=== PATIENT | male | born 1945 | race Caucasian/White ===

== ENCOUNTER 2017-04-19 23:14 | Emergency (ER) | payer BC, MEDICARE ==
[2017-04-19] MEDS ORDERED: predniSONE 10 MG Tab PO ONE (23:15)
[2017-04-19] MEDS ORDERED: Cephalexin 500 MG Cap PO ONE (23:15)
[2017-04-20 00:19] VITALS: BP 151/72
[2017-04-20] MEDS ORDERED: predniSONE 10 MG Tab ONE ×2 (01:37→01:57)
[2017-04-20] MEDS ORDERED: Cephalexin 500 MG Cap ONE (01:37)
--- NOTE | 2017-04-20 01:39 | EDM.PDOC ---
ED HPI GENERAL MEDICAL PROBLEM - General Chief Complaint: Bite:Animal, Insect Stated Complaint: WASP BITE SWELLING Time Seen by Provider: 04/20/17 00:15 Source of Information: Reports: Patient History Limitations: Reports: No Limitations - History of Present Illness INITIAL COMMENTS - FREE TEXT/NARRATIVE: Bit by wasp 6am, tonight increased swelling and redness to left hand. Mild previous reaction to wasp stings last week, No c/o breathing difficulty. Back Pain Score (Numeric/FACES): 5 - Related Data Allergies Allergy/AdvReac Type Severity Reaction Status Date / Time naproxen [From Naprosyn] Allergy Swelling Verified 04/20/17 00:14 Home Meds: Home Meds Aspirin [Aspirin EC] 325 mg PO DAILY 06/05/14 [History] Darbepoetin Chuy [Aranesp] 1 injection SUBCUT ASDIRECTED 06/05/14 [History] Hydrocodone/Acetaminophen [Hydrocodon-Acetaminophn 10-325] 1 tab PO Q4H [History] Metoprolol Succinate [Toprol Xl] 50 mg PO DAILY 06/05/14 [History] Omeprazole 20 mg PO BID 06/05/14 [History] rOPINIRole [Requip] 1 mg PO Q4H PRN 06/05/14 [History] Ascorbate Calcium [Vitamin C] 500 mg PO DAILY 06/15/14 [History] Multivitamins,Therapeutic [Thera] 1 each PO DAILY #30 tab 06/21/14 [Rx] Albuterol [Proventil HFA] 2 puff INH QID PRN 04/29/15 [History] Past Medical History HEENT History: Reports: None Cardiovascular History: Reports: Hypertension, [place] Musculoskeletal History: Reports: Back Pain, Chronic, Other (See Below) Other Musculoskeletal History: lumbar degenerative disc disease Neurological History: Reports: CVA, Other (See Below) Other Neuro History: restless legs Other Hematologic History: myelodysplastic syndrome - Infectious Disease History Other Infectious Disease History: pt cannot remember - Past Surgical History HEENT Surgical History: Reports: None Cardiovascular Surgical History: Reports: Carotid Endarterectomy GI Surgical History: Reports: Appendectomy Social & Family History - Tobacco Use Smoking Status *Q: Current Every Day Smoker Years of Tobacco use: 50 Packs/Tins Daily: 0.5 Used Tobacco, but Quit: No Second Hand Smoke Exposure: Yes - Caffeine Use Caffeine Use: Reports: Coffee, Soda - Alcohol Use Days Per Week of Alcohol Use: 0 - Recreational Drug Use Recreational Drug Use: No Drug Use in Last 12 Months: No - Living Situation & Occupation Living situation: Reports: ED ROS GENERAL - Review of Systems Review Of Systems: ROS reveals no pertinent complaints other than HPI. ED EXAM, ANIMAL BITE - Physical Exam Exam: See Below Exam Limited By: No Limitations General Appearance: Alert, No Apparent Distress Eye Exam: Bilateral Eye: EOMI Ears: Normal External Exam Nose: Normal Inspection Throat/Mouth: Normal Inspection Head: Atraumatic Neck: Normal Inspection. No: Lymphadenopathy (L), Lymphadenopathy (R) Respiratory/Chest: No Respiratory Distress, Lungs Clear Cardiovascular: Normal Peripheral Pulses, Regular Rate, Rhythm Extremities: Redness, Other (rid hand red swoolen,minimal swelling to fingers. good pulse ) Neurological: Alert, Oriented Skin Exam: Other (left hand red, moderate swelling to hand , mild swelling to fingers. good capillary refill) Course - Vital Signs Last Recorded V/S: Last Vital Signs Temp 98.1 F 04/20/17 00:14 Pulse 66 04/20/17 00:14 Resp 16 04/20/17 00:14 BP 151/72 H 04/20/17 00:14 Pulse Ox 97 04/20/17 00:14 - Orders/Labs/Meds Meds: Medications Discontinued Medications Generic Name Dose Route Start Last Admin Trade Name [place] PRN Reason Stop Dose Admin Cephalexin Confirm 04/20/17 01:37 Keflex Administered 04/20/17 01:38 Dose 2,500 mg .ROUTE .STK-MED ONE Prednisone Confirm 04/20/17 01:37 Prednisone Administered 04/20/17 01:38 Dose 30 mg .ROUTE .STK-MED ONE Prednisone Confirm 04/20/17 01:57 Prednisone Administered 04/20/17 01:58 Dose 10 mg .ROUTE .STK-MED ONE Departure - Departure Time of Disposition: 01:34 Disposition: Home, Self-Care 01 Condition: Good Clinical Impression: Sting, wasp Qualifiers: Encounter type: initial encounter Injury intent: accidental or unintentional Qualified Code(s): T63.461A - Toxic effect of venom of wasps, accidental ( unintentional), initial encounter Cellulitis Qualifiers: Site of cellulitis: extremity Site of cellulitis of extremity: upper extremity Laterality: left Qualified Code(s): L03.114 - Cellulitis of left upper limb - Discharge Information Instructions: Insect Bite, [id number] Forms: ED Department Discharge Additional Instructions: keflex 500mg one 4 times daily for one week prednisone 20mg x 2 days then 10mg daily for 5 days elevate extremity monitor redness, if increased warmth swelling and fever, follow up benadryl 25mg one every 6 hours as needed to decrease itching and swelling
== END 2017-04-20 02:02 | disposition home or self-care (01) ==
LOC: DL.ED 23:14
DX: T63.461A Toxic effect of venom of wasps, accidental (unintentional), initial encounter (principal); L03.113 Cellulitis of right upper limb; I10 Essential (primary) hypertension; I25.2 Old myocardial infarction; F17.210 Nicotine dependence, cigarettes, uncomplicated; Z79.82 Long term (current) use of aspirin; Z79.899 Other long term (current) drug therapy; Z88.8 Allergy status to other drugs, medicaments and biological substances; Z86.73 Personal history of transient ischemic attack (TIA), and cerebral infarction without residual deficits; Z90.49 Acquired absence of other specified parts of digestive tract; Z98.890 Other specified postprocedural states
CPT/HCPCS: 99281; A9270-GY

== ENCOUNTER 2017-07-02 17:08 | Inpatient (IN) | payer BC, MEDICARE ==
[2017-07-02] MEDS ORDERED: Acetaminophen 500 MG Tab PO ONE (17:23)
[2017-07-02] MEDS ORDERED: Albuterol/Ipratropium 3.0-0.5 MG/3 ML Neb Soln NEB ONE (17:23)
--- NOTE | 2017-07-02 17:26 | EDM.PDOC ---
ED HPI GENERAL MEDICAL PROBLEM - General Chief Complaint: Fever Stated Complaint: FEVER [id number] Time Seen by Provider: 07/02/17 17:21 Source of Information: Reports: Patient History Limitations: Reports: No Limitations - History of Present Illness INITIAL COMMENTS - FREE TEXT/NARRATIVE: 71 yo white male c/o fever and chills X 2 days. Smoke 1/2 ppd X 50 yrs. Pt. had epidural pain management injection on thursday Onset: Today Onset Date: 07/02/17 Onset Time: 11:00 Duration: Day(s): Location: Reports: Chest, Generalized Quality: Reports: Ache Severity: Moderate Improves with: Reports: None Worsens with: Reports: None Associated Symptoms: Reports: No Other Symptoms Lower Back Pain Score (Numeric/FACES): 5 - Related Data Allergies Allergy/AdvReac Type Severity Reaction Status Date / Time bee venom protein (honey bee) Allergy Swelling Verified 07/02/17 17:29 gabapentin Allergy Cannot Verified 07/02/17 17:29 Remember naproxen [From Naprosyn] Allergy Swelling Verified 07/02/17 17:29 pregabalin [From Lyrica] Allergy Excitabilit Verified 07/02/17 17:29 y Home Meds: Home Meds Aspirin [Aspirin EC] 325 mg PO DAILY 06/05/14 [History] Darbepoetin Chuy [Aranesp] 1 injection SUBCUT ASDIRECTED 06/05/14 [History] Hydrocodone/Acetaminophen [Hydrocodon-Acetaminophn 10-325] 1 tab PO Q4H [History] Metoprolol Succinate [Toprol Xl] 50 mg PO DAILY 06/05/14 [History] Omeprazole 20 mg PO BID 06/05/14 [History] rOPINIRole [Requip] 1 mg PO Q4H PRN 06/05/14 [History] Ascorbate Calcium [Vitamin C] 500 mg PO DAILY 06/15/14 [History] Multivitamins,Therapeutic [Thera] 1 each PO DAILY #30 tab 06/21/14 [Rx] Albuterol [Proventil HFA] 2 puff INH QID PRN 04/29/15 [History] Past Medical History HEENT History: Reports: None Cardiovascular History: Reports: Hypertension, [place] Musculoskeletal History: Reports: Back Pain, Chronic, Other (See Below) Other Musculoskeletal History: lumbar degenerative disc disease Neurological History: Reports: CVA, Other (See Below) Other Neuro History: restless legs Other Hematologic History: myelodysplastic syndrome - Infectious Disease History Other Infectious Disease History: pt cannot remember - Past Surgical History HEENT Surgical History: Reports: None Cardiovascular Surgical History: Reports: Carotid Endarterectomy GI Surgical History: Reports: Appendectomy Social & Family History - Tobacco Use Smoking Status *Q: Current Every Day Smoker Years of Tobacco use: 50 Packs/Tins Daily: 0.5 Used Tobacco, but Quit: No Second Hand Smoke Exposure: Yes - Caffeine Use Caffeine Use: Reports: Coffee, Soda - Alcohol Use Days Per Week of Alcohol Use: 0 - Recreational Drug Use Recreational Drug Use: No Drug Use in Last 12 Months: No - Living Situation & Occupation Living situation: Reports: ED ROS GENERAL - Review of Systems Review Of Systems: See Below Constitutional: Reports: Fever, Chills HEENT: Reports: No Symptoms Respiratory: Reports: Shortness of Breath, Cough, Sputum Cardiovascular: Reports: No Symptoms Endocrine: Reports: No Symptoms GI/Abdominal: Reports: No Symptoms : Reports: No Symptoms Musculoskeletal: Reports: No Symptoms Skin: Reports: No Symptoms Neurological: Reports: No Symptoms Psychiatric: Reports: No Symptoms Hematologic/Lymphatic: Reports: No Symptoms Immunologic: Reports: No Symptoms ED EXAM, GENERAL - Physical Exam Exam: See Below Exam Limited By: No Limitations General Appearance: Alert, WD/WN, No Apparent Distress Eye Exam: Bilateral Eye: EOMI, PERRL Ears: Normal External Exam Nose: Normal Inspection, Clear Rhinorrhea Throat/Mouth: Normal Inspection, Normal Lips Head: Atraumatic Neck: Normal Inspection Respiratory/Chest: No Respiratory Distress, Rhonchi Cardiovascular: Normal Peripheral Pulses, Regular Rate, Rhythm, No Edema GI/Abdominal: Normal Bowel Sounds, Soft Back Exam: Normal Inspection Extremities: Normal Inspection, Normal Range of Motion Neurological: Alert, Oriented, CN II-XII Intact Psychiatric: Normal Affect Skin Exam: Warm, Dry, Intact Lymphatic: No Adenopathy Course - Vital Signs Last Recorded V/S: Last Vital Signs Temp 38.4 C H 07/02/17 17:43 Pulse 83 07/02/17 17:17 Resp 16 07/02/17 17:17 BP 110/49 L 07/02/17 17:17 Pulse Ox 94 L 07/02/17 17:17 - Orders/Labs/Meds Orders: Active Orders 24 hr Category Date Time Status RT Aerosol Therapy [RC] ASDIRECTED Care 07/02/17 17:23 Active Chest 2V [CR] Urgent Exams 07/02/17 17:23 Taken CULTURE BLOOD [BC] Stat Lab 07/02/17 17:37 Received CULTURE BLOOD [BC] Stat Lab 07/02/17 17:53 Received CULTURE SPUTUM + SMEAR [RM] Stat Lab 07/02/17 18:24 Ordered Sodium Chloride 0.9% [Normal Saline] 1,000 ml Med 07/02/17 18:00 Active IV ASDIRECTED Medication Orders Sodium Chloride (Normal Saline) 1,000 mls @ 125 mls/hr IV ASDIRECTED JOE Last Admin: 07/02/17 18:30 Dose: 125 mls/hr Labs: Laboratory Tests 07/02/17 07/02/17 07/02/17 Range/Units 17:37 17:37 17:37 WBC 19.5 H (5.0-10.0) 10^3/uL RBC 2.87 L (4.6-6.2) 10^6/uL Hgb 8.8 L (14.0-18.0) g/dL Hct 28.1 L (40.0-54.0) % MCV 97.9 (80-100) fL MCH 30.7 (27.0-34.0) pg MCHC 31.3 L (33.0-35.0) g/dL Plt Count 333 D (150-450) 10^3/uL Lymph % (Auto) 7.7 L (20.5-50.1) % [place] % (Auto) 8.6 H (2-8) % Eos % (Auto) 0.1 L (1.0-3.0) % Add Manual Diff Yes Neutrophils % (Manual) 65 (42-75) % Band Neutrophils % 19 % Lymphocytes % (Manual) 9 L (20-50) % Monocytes % (Manual) 7 (2-8) % Sodium 139 (135-145) mmol/L Potassium 4.5 (3.6-5.0) mmol/L Chloride 101 (101-111) mmol/L Carbon Dioxide 27.0 (21.0-31.0) mmol/L Anion Gap 15.5 BUN 20 H (7-18) mg/dL Creatinine 0.8 (0.6-1.3) mg/dL Est Cr Clr Drug Dosing 75.32 mL/min Estimated GFR (MDRD) > 60 BUN/Creatinine Ratio 25.00 Glucose 92 (74-105) mg/dL Lactic Acid 1.3 (0.5-2.2) mmol/L Calcium 9.0 (8.4-10.2) mg/dl Total Bilirubin 1.0 (0.2-1.0) mg/dL AST 26 (10-42) IU/L ALT 19 (10-60) IU/L Alkaline Phosphatase 46 (42-121) IU/L Total Protein 7.1 (6.7-8.2) g/dl Albumin 4.5 (3.2-5.5) g/dl Globulin 2.6 Albumin/Globulin Ratio 1.73 Urine Color (YELLOW) Urine Appearance (CLEAR) Urine pH (5.0-9.0) Ur Specific [place] (1.005-1.030) Urine Protein (NEGATIVE) Urine Glucose (UA) (NEGATIVE) Urine Ketones (NEGATIVE) Urine Occult Blood (NEGATIVE) Urine Nitrite (NEGATIVE) Urine Bilirubin (NEGATIVE) Urine Urobilinogen (0.2-1.0) mg/dL Ur Leukocyte Esterase (NEGATIVE) Urine RBC /HPF Urine WBC (0-5/HPF) /HPF Ur Epithelial Cells /HPF Urine Bacteria (0-FEW/HPF) /HPF Urine Mucus /LPF 07/02/ Range/Units 18:00 WBC (5.0-10.0) 10^3/uL RBC (4.6-6.2) 10^6/uL Hgb (14.0-18.0) g/dL Hct (40.0-54.0) % MCV (80-100) fL MCH (27.0-34.0) pg MCHC (33.0-35.0) g/dL Plt Count (150-450) 10^3/uL Lymph % (Auto) (20.5-50.1) % [place] % (Auto) (2-8) % Eos % (Auto) (1.0-3.0) % Add Manual Diff Neutrophils % (Manual) (42-75) % Band Neutrophils % % Lymphocytes % (Manual) (20-50) % Monocytes % (Manual) (2-8) % Sodium (135-145) mmol/L Potassium (3.6-5.0) mmol/L Chloride (101-111) mmol/L Carbon Dioxide (21.0-31.0) mmol/L Anion Gap BUN (7-18) mg/dL Creatinine (0.6-1.3) mg/dL Est Cr Clr Drug Dosing mL/min Estimated GFR (MDRD) BUN/Creatinine Ratio Glucose (74-105) mg/dL Lactic Acid (0.5-2.2) mmol/L Calcium (8.4-10.2) mg/dl Total Bilirubin (0.2-1.0) mg/dL AST (10-42) IU/L ALT (10-60) IU/L Alkaline Phosphatase (42-121) IU/L Total Protein (6.7-8.2) g/dl Albumin (3.2-5.5) g/dl Globulin Albumin/Globulin Ratio Urine Color Yellow (YELLOW) Urine Appearance Clear (CLEAR) Urine pH 7.5 (5.0-9.0) Ur Specific [place] 1.020 (1.005-1.030) Urine Protein 30 H (NEGATIVE) Urine Glucose (UA) Negative (NEGATIVE) Urine Ketones Negative (NEGATIVE) Urine Occult Blood Negative (NEGATIVE) Urine Nitrite Negative (NEGATIVE) Urine Bilirubin Negative (NEGATIVE) Urine Urobilinogen 1.0 (0.2-1.0) mg/dL Ur Leukocyte Esterase Negative (NEGATIVE) Urine RBC 0-5 /HPF Urine WBC 0-5 (0-5/HPF) /HPF Ur Epithelial Cells Rare /HPF Urine Bacteria Rare (0-FEW/HPF) /HPF Urine Mucus Moderate H /LPF Meds: Medications Generic Name Dose Route Start Last Admin Trade Name Freq PRN Reason Stop Dose Admin Sodium Chloride 1,000 mls @ 125 mls/hr 07/02/17 18:00 07/02/17 18:30 Normal Saline IV 125 mls/hr ASDIRECTED JOE Administration Discontinued Medications Generic Name Dose Route Start Last Admin Trade Name Freq PRN Reason Stop Dose Admin Acetaminophen 500 mg 07/02/17 17:23 07/02/17 17:43 Tylenol Extra Strength PO 07/02/17 17:24 500 mg ONETIME ONE Administration Albuterol/Ipratropium 3 ml 07/02/17 17:23 07/02/17 17:41 Duoneb 3.0-0.5 Mg/3 Ml NEB 07/02/17 17:24 3 ml ONETIME ONE Administration Ceftriaxone Sodium 2 gm/ 100 mls @ 200 mls/hr 07/02/17 17:59 Sodium Chloride IV 07/02/17 18:28 ONETIME ONE Departure - Departure Time of Disposition: 18:34 Disposition: Admitted As Inpatient 65 Condition: Fair Clinical Impression: Pneumonia Pneumonia Qualifiers: Pneumonia type: due to unspecified organism Laterality: right Lung location: lower lobe of lung Qualified Code(s): J18.1 - Lobar pneumonia, unspecified organism - Discharge Information Referrals: PCP,None [Primary Care Provider] - Jesu Melton MD [Physician] - Forms: ED Department Discharge - My Orders Last 24 Hours: My Active Orders 07/02/17 17:23 RT Aerosol Therapy [RC] ASDIRECTED Chest 2V [CR] Urgent 07/02/17 17:37 CULTURE BLOOD [BC] Stat 07/02/17 17:53 CULTURE BLOOD [BC] Stat 07/02/17 18:00 Sodium Chloride 0.9% [Normal Saline] 1,000 ml IV ASDIRECTED 07/02/17 18:24 CULTURE SPUTUM + SMEAR [RM] Stat - Assessment/Plan Last 24 Hours: My Active Orders 07/02/17 17:23 RT Aerosol Therapy [RC] ASDIRECTED Chest 2V [CR] Urgent 07/02/17 17:37 CULTURE BLOOD [BC] Stat 07/02/17 17:53 CULTURE BLOOD [BC] Stat 07/02/17 18:00 Sodium Chloride 0.9% [Normal Saline] 1,000 ml IV ASDIRECTED 07/02/17 18:24 CULTURE SPUTUM + SMEAR [RM] Stat
[2017-07-02] MEDS ORDERED: cefTRIAXone 2 GM in Sodium Chloride 0.9% 100 ML IV ONE (17:59)
[2017-07-02 18:05] LABS: CHLORIDE,CL 101 mmol/L (101-111); SODIUM,NA 139 mmol/L (135-145)
[2017-07-02] MEDS: Sodium Chloride 0.9% 1,000 ML IV SCH (18:30)
[2017-07-02] MEDS ORDERED: Albuterol 6.7 GM Inhaler INH PRN (19:33)
[2017-07-02] MEDS ORDERED: Zolpidem 5 MG Tab PO PRN (19:41)
[2017-07-02] MEDS ORDERED: Sodium Chloride 0.9% 10 ML Syringe FLUSH PRN (19:41)
[2017-07-02] MEDS ORDERED: Acetaminophen 325 MG Tab PO PRN (19:41)
[2017-07-02] MEDS ORDERED: Albuterol/Ipratropium 3.0-0.5 MG/3 ML Neb Soln NEB PRN (19:41)
--- NOTE | 2017-07-02 19:51 | PCM.HP ---
H&P History of Present Illness - General Date of Service: 07/02/17 Admit Problem/Dx: Admission Diagnosis/Problem Admission Diagnosis/Problem Fever Source of Information: Patient History Limitations: Reports: No Limitations - History of Present Illness Initial Comments - Free Text/Narative: 71-year-old gentleman with a history of coronary artery disease, obstructive sleep apnea, hypertension, myelodysplastic syndrome with chronic anemia. The patient has a history of COPD. Continues to smoke. He has a chronic back pain. 2 days ago underwent lumbar spine steroid injection. Had a small mole removed from the back. The patient was noted to have fever on his recent regularly scheduled R Aranesp injection. He says he has always coughing but maybe has a little bit more cough now. No significant sputum associated with this. No headache nausea vomiting, no diarrhea, no confusion. No neck rigidity. Has chronic back pain which is not necessarily changed. The patient came into the emergency room. Lower Back Pain Score (Numeric/FACES): 5 - Related Data Allergies/Adverse Reactions: Allergies Allergy/AdvReac Type Severity Reaction Status Date / Time bee venom protein (honey bee) Allergy Swelling Verified 07/02/17 17:29 gabapentin Allergy Cannot Verified 07/02/17 17:29 Remember naproxen [From Naprosyn] Allergy Swelling Verified 07/02/17 17:29 pregabalin [From Lyrica] Allergy Excitabilit Verified 07/02/17 17:29 y Home Medications: Home Meds Aspirin [Aspirin EC] 325 mg PO DAILY 06/05/14 [History] Darbepoetin Chuy [Aranesp] 1 injection SUBCUT ASDIRECTED 06/05/14 [History] Hydrocodone/Acetaminophen [Hydrocodon-Acetaminophn 10-325] 1 tab PO Q4H [History] Metoprolol Succinate [Toprol Xl] 50 mg PO DAILY 06/05/14 [History] Omeprazole 20 mg PO BID 06/05/14 [History] rOPINIRole [Requip] 1 mg PO Q4H PRN 06/05/14 [History] Ascorbate Calcium [Vitamin C] 500 mg PO DAILY 06/15/14 [History] Multivitamins,Therapeutic [Thera] 1 each PO DAILY #30 tab 06/21/14 [Rx] Albuterol [Proventil HFA] 2 puff INH QID PRN 04/29/15 [History] Past Medical History HEENT History: Reports: None Cardiovascular History: Reports: Hypertension, [place] Respiratory History: Reports: COPD, SOB Gastrointestinal History: Reports: None Genitourinary History: Reports: None Musculoskeletal History: Reports: Back Pain, Chronic, Other (See Below) Other Musculoskeletal History: lumbar degenerative disc disease Neurological History: Reports: CVA, Other (See Below) Other Neuro History: restless legs Psychiatric History: Reports: None Endocrine/Metabolic History: Reports: None Hematologic History: Reports: Anemia Other Hematologic History: myelodysplastic syndrome Immunologic History: Reports: None Oncologic (Cancer) History: Reports: Other (See Below) Other Oncologic History: skin Dermatologic History: Reports: Other (See Below) Other Dermatologic History: skin cancer to back - Infectious Disease History Other Infectious Disease History: pt cannot remember - Past Surgical History HEENT Surgical History: Reports: None Cardiovascular Surgical History: Reports: Carotid Endarterectomy GI Surgical History: Reports: Appendectomy Social & Family History - Tobacco Use Smoking Status *Q: Current Every Day Smoker Years of Tobacco use: 50 Packs/Tins Daily: 0.5 Used Tobacco, but Quit: No Second Hand Smoke Exposure: Yes - Caffeine Use Caffeine Use: Reports: Coffee, Soda - Alcohol Use Days Per Week of Alcohol Use: 0 - Recreational Drug Use Recreational Drug Use: No Drug Use in Last 12 Months: No - Living Situation & Occupation Living situation: Reports: H&P Review of Systems - Review of Systems: Review Of Systems: See Below General: Reports: Fever. Denies: Chills, Weakness HEENT: Denies: Headaches, Sore Throat Pulmonary: Reports: Shortness of Breath (Chronic). Denies: Wheezing Cardiovascular: Reports: Edema (Chronic). Denies: Chest Pain Gastrointestinal: Denies: Abdominal Pain Genitourinary: Denies: Dysuria Musculoskeletal: Denies: Neck Pain Psychiatric: Denies: Confusion Exam - Exam Exam: See Below - Vital Signs Vital Signs: Last Vital Signs Temp 38.4 C H 07/02/17 17:43 Pulse 83 07/02/17 17:17 Resp 16 07/02/17 17:17 BP 110/49 L 07/02/17 17:17 Pulse Ox 94 L 07/02/17 17:17 Weight: 64.41 kg - Exam General: Alert Neck: Supple Lungs: Decreased Breath Sounds, Rhonchi (Scattered bilateral). No: Wheezing Cardiovascular: Regular Rate, Regular Rhythm GI/Abdominal Exam: Normal Bowel Sounds, Soft, Non-Tender Extremities: Pedal Edema Skin: Warm, Wound (Small wound at the site of the skin biopsy on the back) Neurological: Cranial Nerves Intact Neuro Extensive - Mental Status: Alert, Oriented x3, Normal Mood/Affect - Patient Data Result Diagrams: 07/02/17 17:37 07/02/17 17:37 Imaging Impressions Last 24 hrs: Chest x-ray per my reading shows questionable right hilar or infrahilar infiltrate *Q Meaningful Use (ADM) - VTE *Q VTE Criteria *Q: - Stroke *Q Stroke Criteria *Q: - AMI *Q AMI Criteria *Q: - Problem List (1) Anemia SNOMED Code(s): 982639640 ICD Code: D64.9 - ANEMIA, UNSPECIFIED Status: Acute Current Visit: No (2) Myelodysplastic syndrome SNOMED Code(s): 825464674 ICD Code: D46.9 - MYELODYSPLASTIC SYNDROME, UNSPECIFIED Status: Acute Current Visit: No Problem List Initiated/Reviewed/Updated: Yes Orders Last 24hrs: Active Orders 24 hr Category Date Time Status Patient Status [ADT] Routine ADT 07/02/17 19:41 Ordered Antiembolic Devices [RC] PER UNIT ROUTINE Care 07/02/17 19:43 Ordered Oxygen Therapy [RC] PRN Care 07/02/17 19:41 Ordered Peripheral IV Care [RC] . DIRECTED Care 07/02/17 19:43 Ordered RT Aerosol Therapy [RC] ASDIRECTED Care 07/02/17 19:39 Ordered RT Aerosol Therapy [RC] ASDIRECTED Care 07/02/17 19:41 Ordered Up With Assistance [RC] ASDIRECTED Care 07/02/17 19:41 Ordered VTE/DVT Education [RC] PER UNIT ROUTINE Care 07/02/17 19:41 Ordered Vital Signs [RC] Q4H Care 07/02/17 19:41 Ordered Regular Diet [DIET] Diet 07/02/17 Breakfast Ordered CULTURE URINE [RM] Routine Lab 07/02/17 19:00 Uncollected UA W/MICROSCOPIC [URIN] Routine Lab 07/02/17 19:00 Uncollected Acetaminophen [Tylenol] Med 07/02/17 19:41 Ordered 650 mg PO Q4H PRN Acetaminophen/HYDROcodone [[place] 325-10 MG] Med 07/02/17 19:45 Ordered 1 tab PO Q4H Albuterol/Ipratropium [DuoNeb 3.0-0.5 MG/3 ML] Med 07/02/17 19:41 Ordered 3 ml NEB Q4HRRT PRN Ascorbate Calcium [Vitamin C] Med 07/03/17 09:00 Ordered 500 mg PO DAILY Aspirin [Aspirin EC] Med 07/03/17 09:00 Ordered 325 mg PO DAILY Azithromycin [Zithromax] 500 mg Med 07/02/17 20:00 Active Sodium Chloride 0.9% [Normal Saline] 250 ml IV Q24H Budesonide [Pulmicort] Med 07/03/17 07:00 Ordered 0.5 mg NEB BIDRT Heparin Sodium Med 07/02/17 22:00 Ordered 5,000 units SUBCUT Q8HR Metoprolol Succinate [Toprol Xl] Med 07/03/17 09:00 Ordered 50 mg PO DAILY Multivitamins,Therapeutic [Thera] Med 07/03/17 09:00 Ordered 1 each PO DAILY Omeprazole Med 07/02/17 21:00 Ordered 20 mg PO BID Sodium Chloride 0.9% [Saline Flush] Med 07/02/17 19:41 Ordered 10 ml FLUSH ASDIRECTED PRN Zolpidem [Ambien] Med 07/02/17 19:41 Ordered 5 mg PO BEDTIME PRN atorvaSTATin [Lipitor] Med 07/02/17 21:00 Ordered 10 mg PO BEDTIME cefTRIAXone [Rocephin] 1 gm Med 07/03/17 18:00 Active Sodium Chloride 0.9% [Normal Saline] 50 ml IV Q24H rOPINIRole [Requip] Med 07/02/17 19:33 Ordered 1 mg PO Q4H PRN Antiembolic Hose [OM.PC] Per Unit Routine Oth 07/02/17 19:43 Ordered Peripheral IV Insertion Adult [OM.PC] Routine Oth 07/02/17 19:41 Ordered Saline Lock Insert [OM.PC] Routine Oth 07/02/17 19:41 Ordered Resuscitation Status Routine Resus Stat 07/02/17 19:41 Ordered Medication Orders Acetaminophen (Tylenol) 650 mg PO Q4H PRN PRN Reason: Pain (Mild 1-3)/fever Hydrocodone Bitart/Acetaminophen ([place] 325-10 Mg) 1 tab PO Q4H JOE Albuterol/Ipratropium (Duoneb 3.0-0.5 Mg/3 Ml) 3 ml NEB Q4HRRT PRN PRN Reason: sob Atorvastatin Calcium (Lipitor) 10 mg PO BEDTIME JOE Budesonide (Pulmicort) 0.5 mg NEB BIDRT JOE Heparin Sodium (Porcine) (Heparin Sodium) 5,000 units SUBCUT Q8HR JOE Sodium Chloride (Normal Saline) 1,000 mls @ 125 mls/hr IV ASDIRECTED [facility] Last Admin: 07/02/17 18:30 Dose: 125 mls/hr Azithromycin 500 mg/ Sodium (Chloride) 250 mls @ 250 mls/hr IV Q24H JOE Ceftriaxone Sodium 1 gm/ (Sodium Chloride) 50 mls @ 100 mls/hr IV Q24H [facility] Multivitamins (Thera) 1 each PO DAILY [facility] Non-Formulary Medication (Ascorbate Calcium [Vitamin C]) 500 mg PO DAILY [facility] Non-Formulary Medication (Aspirin [Aspirin Ec]) 325 mg PO DAILY [facility] Non-Formulary Medication (Metoprolol Succinate [Toprol Xl]) 50 mg PO DAILY [facility] Non-Formulary Medication (Ropinirole [Requip]) 1 mg PO Q4H PRN PRN Reason: Pain in leg, back Omeprazole (Omeprazole) 20 mg PO BID [facility] Sodium Chloride (Saline Flush) 10 ml FLUSH ASDIRECTED PRN PRN Reason: Keep Vein Open Zolpidem Tartrate (Ambien) 5 mg PO BEDTIME PRN PRN Reason: Sleep Assessment/Plan Comment:: #1 fever This is likely acute bronchitis, possible right-sided pneumonia The patient recently had skin biopsy but there is no significant cellulitis in the area The patient recently had lumbar spinal injection but he does not have signs or symptoms of meningitis or encephalitis We will obtain blood culture, sputum culture, urine analysis and culture Empirically treat with Rocephin and azithromycin 2. COPD We will add Pulmicort, continue DuoNeb Smoking cessation was discussed 3. Coronary artery disease Continue metoprolol and Lipitor and aspirin 4. Chronic pain Will treat with requip, hydrocodone 5. DVT prophylaxis will be subcutaneous heparin
[2017-07-02] MEDS ORDERED: rOPINIRole 2 MG Tab PO PRN (20:00)
[2017-07-02] MEDS: Azithromycin 500 MG in Sodium Chloride 0.9% 250 ML IV SCH (20:35)
[2017-07-02] MEDS: Heparin Sodium 5,000 Units/ML Vial SUBCUT SCH (21:30)
[2017-07-02] MEDS: Omeprazole 20 MG Cap.CR PO SCH (21:30)
[2017-07-02] MEDS: rOPINIRole 2 MG Tab PO SCH (21:30)
[2017-07-02] MEDS: atorvaSTATin 10 MG Tab PO SCH (21:31)
[2017-07-02] MEDS: Loratadine 10 MG Tab PO SCH ×2 (21:31→21:53)
[2017-07-02] MEDS: Acetaminophen/HYDROcodone 325-10 MG Tab PO SCH (21:31)
[2017-07-03] MEDS: Acetaminophen/HYDROcodone 325-10 MG Tab PO SCH ×6 (02:05→22:07)
[2017-07-03] MEDS: rOPINIRole 2 MG Tab PO SCH ×6 (02:05→22:07)
[2017-07-03] MEDS: Sodium Chloride 0.9% 1,000 ML IV SCH (02:09)
[2017-07-03] MEDS: Heparin Sodium 5,000 Units/ML Vial SUBCUT SCH ×3 (06:11→22:11)
[2017-07-03] MEDS: Budesonide 0.5 MG/2 ML Neb Susp NEB SCH ×2 (07:28→18:01)
[2017-07-03] MEDS: Loratadine 10 MG Tab PO SCH (09:33)
[2017-07-03] MEDS: Aspirin 325 MG Tab.EC PO SCH (09:34)
[2017-07-03] MEDS: Ascorbic Acid 500 MG Tab PO SCH (09:35)
[2017-07-03] MEDS: Multivitamins,Therapeutic Tab PO SCH (09:35)
[2017-07-03] MEDS: Metoprolol Succinate 50 MG Tab.ER PO SCH (09:35)
[2017-07-03] MEDS: Omeprazole 20 MG Cap.CR PO SCH ×2 (09:36→20:34)
--- NOTE | 2017-07-03 10:14 | PCM.PN ---
- General Info Date of Service: 07/03/17 Subjective Update: had low grade temp overnight no associated chills no cp, has cough, no sob no abd pain, no urinary burning no H/a, confusion - Review of Systems General: Reports: Fever Pulmonary: Denies: Shortness of Breath Cardiovascular: Denies: Chest Pain Genitourinary: Denies: Dysuria Neurological: Denies: Confusion - Patient Data Vitals - Most Recent: Last Vital Signs Temp 37.2 C 07/03/17 06:58 Pulse 65 07/03/17 09:35 Resp 20 07/03/17 06:58 BP 114/50 L 07/03/17 09:35 Pulse Ox 92 L 07/03/17 06:58 Weight - Most Recent: 64.41 kg I&O - Last 24 Hours: Intake & Output 07/02/17 07/03/17 07/03/17 22:59 06:59 14:59 Intake Total 1528 Balance 1528 Med Orders - Current: Current Medications Acetaminophen (Tylenol) 650 mg PO Q4H PRN PRN Reason: Pain (Mild 1-3)/fever Hydrocodone Bitart/Acetaminophen ([place] 325-10 Mg) 1 tab PO Q4H [facility] Last Admin: 07/03/17 09:33 Dose: 1 tab Albuterol/Ipratropium (Duoneb 3.0-0.5 Mg/3 Ml) 3 ml NEB Q4HRRT PRN PRN Reason: sob Last Admin: 07/03/17 07:27 Dose: 3 ml Ascorbic Acid (Vitamin C) 500 mg PO DAILY [facility] Last Admin: 07/03/17 09:35 Dose: 500 mg Aspirin (Ecotrin) 325 mg PO DAILY [facility] Last Admin: 07/03/17 09:34 Dose: 325 mg Atorvastatin Calcium (Lipitor) 10 mg PO BEDTIME [facility] Last Admin: 07/02/17 21:31 Dose: 10 mg Budesonide (Pulmicort) 0.5 mg NEB BIDRT [facility] Last Admin: 07/03/17 07:28 Dose: 0.5 mg Heparin Sodium (Porcine) (Heparin Sodium) 5,000 units SUBCUT Q8HR [facility] Last Admin: 07/03/17 06:11 Dose: 5,000 units Sodium Chloride (Normal Saline) 1,000 mls @ 125 mls/hr IV ASDIRECTED [facility] Last Admin: 07/03/17 02:09 Dose: 125 mls/hr Azithromycin 500 mg/ Sodium (Chloride) 250 mls @ 250 mls/hr IV Q24H [facility] Last Admin: 07/02/17 20:35 Dose: 250 mls/hr Ceftriaxone Sodium 1 gm/ (Sodium Chloride) 50 mls @ 100 mls/hr IV Q24H [facility] Loratadine (Claritin) 10 mg PO DAILY [facility] Last Admin: 07/03/17 09:33 Dose: 10 mg Metoprolol Succinate (Toprol Xl) 50 mg PO DAILY [facility] Last Admin: 07/03/17 09:35 Dose: 50 mg Multivitamins (Thera) 1 each PO DAILY [facility] Last Admin: 07/03/17 09:35 Dose: 1 each Omeprazole (Omeprazole) 20 mg PO BID [facility] Last Admin: 07/03/17 09:36 Dose: 20 mg Ropinirole HCl (Requip) 1 mg PO Q4H [facility] Last Admin: 07/03/17 09:36 Dose: 1 mg Sodium Chloride (Saline Flush) 10 ml FLUSH ASDIRECTED PRN PRN Reason: Keep Vein Open Zolpidem Tartrate (Ambien) 5 mg PO BEDTIME PRN PRN Reason: Sleep Discontinued Medications Acetaminophen (Tylenol Extra Strength) 500 mg PO ONETIME ONE Stop: 07/02/17 17:24 Last Admin: 07/02/17 17:43 Dose: 500 mg Hydrocodone Bitart/Acetaminophen ([place] 325-10 Mg) 1 tab PO Q4H [facility] Last Admin: 07/03/17 02:05 Dose: 1 tab Albuterol (Proventil Hfa) gm INH QID PRN PRN Reason: Shortness of Breath Albuterol/Ipratropium (Duoneb 3.0-0.5 Mg/3 Ml) 3 ml NEB ONETIME ONE Stop: 07/02/17 17:24 Last Admin: 07/02/17 17:41 Dose: 3 ml Ceftriaxone Sodium 2 gm/ (Sodium Chloride) 100 mls @ 200 mls/hr IV ONETIME ONE Stop: 07/02/17 18:28 Last Admin: 07/02/17 18:33 Dose: 200 mls/hr Loratadine (Claritin) 10 mg PO BEDTIME [facility] Last Admin: 07/02/17 21:53 Dose: Not Given Ropinirole HCl (Requip) 1 mg PO Q4H PRN PRN Reason: PAIN IN LEG AND BACK - Exam General: Alert, Oriented Neck: Supple Lungs: Decreased Breath Sounds. No: Wheezing Cardiovascular: Regular Rate, Regular Rhythm GI/Abdominal Exam: Normal Bowel Sounds, Soft, Non-Tender Extremities: No Pedal Edema Skin: Warm, Dry Neurological: No New Focal Deficit Psy/Mental Status: Alert, Normal Affect, Normal Mood - Problem List & Annotations (1) Anemia SNOMED Code(s): 494183258 Code(s): D64.9 - ANEMIA, UNSPECIFIED Status: Acute Current Visit: No (2) Myelodysplastic syndrome SNOMED Code(s): 934277771 Code(s): D46.9 - MYELODYSPLASTIC SYNDROME, UNSPECIFIED Status: Acute Current Visit: No (3) Acute bronchitis SNOMED Code(s): 27130063 Code(s): J20.9 - ACUTE BRONCHITIS, UNSPECIFIED Status: Acute Current Visit: Yes - Problem List Review Problem List Initiated/Reviewed/Updated: Yes - My Orders Last 24 Hours: My Active Orders 07/02/17 22:00 rOPINIRole [Requip] 1 mg PO Q4H 07/03/17 06:00 Acetaminophen/HYDROcodone [[place] 325-10 MG] 1 tab PO Q4H 07/03/17 09:00 Loratadine [Claritin] 10 mg PO DAILY 07/04/17 05:15 BASIC METABOLIC PANEL,BMP [CHEM] AM CBC WITH AUTO DIFF [HEME] AM - Plan Plan:: #1 fever This is likely due to acute bronchitis, possible right-sided pneumonia The patient recently had skin biopsy but there is no significant cellulitis in the area The patient recently had lumbar spinal injection but he does not have signs or symptoms of meningitis or encephalitis blood culture: neg for now sputum culture: pending urine analysis: neg nitr., leuk Empirically treat with Rocephin and azithromycin 2. COPD cont Pulmicort, continue DuoNeb Smoking cessation was discussed 3. Coronary artery disease Continue metoprolol and Lipitor and aspirin 4. Chronic pain Will treat with requip, hydrocodone 5. DVT prophylaxis will be subcutaneous heparin
[2017-07-03] MEDS ORDERED: cefTRIAXone 1 GM in Sodium Chloride 0.9% 50 ML IV SCH (18:00)
[2017-07-03] MEDS: Azithromycin 500 MG in Sodium Chloride 0.9% 250 ML IV SCH (20:33)
[2017-07-03] MEDS: atorvaSTATin 10 MG Tab PO SCH (20:33)
[2017-07-04] MEDS: Acetaminophen/HYDROcodone 325-10 MG Tab PO SCH ×3 (02:31→10:06)
[2017-07-04] MEDS: rOPINIRole 2 MG Tab PO SCH ×3 (02:32→10:06)
[2017-07-04] MEDS: Heparin Sodium 5,000 Units/ML Vial SUBCUT SCH (06:31)
[2017-07-04] MEDS: Budesonide 0.5 MG/2 ML Neb Susp NEB SCH (06:47)
[2017-07-04 06:48] LABS: CHLORIDE,CL 107 mmol/L (101-111); SODIUM,NA 140 mmol/L (135-145)
[2017-07-04] MEDS: Loratadine 10 MG Tab PO SCH (08:07)
[2017-07-04] MEDS: Metoprolol Succinate 50 MG Tab.ER PO SCH (08:07)
[2017-07-04] MEDS: Omeprazole 20 MG Cap.CR PO SCH (08:07)
[2017-07-04] MEDS: Aspirin 325 MG Tab.EC PO SCH (08:07)
[2017-07-04] MEDS: Multivitamins,Therapeutic Tab PO SCH (08:07)
[2017-07-04] MEDS: Ascorbic Acid 500 MG Tab PO SCH (08:08)
--- NOTE | 2017-07-04 10:01 | PCM.DCSUM1 ---
Discharge Summary - Hospital Course Free Text/Narrative:: #1 fever This is likely due to acute bronchitis, possible right-sided pneumonia The patient recently had skin biopsy but there is no significant cellulitis in the area The patient recently had lumbar spinal injection but he does not have signs or symptoms of meningitis or encephalitis blood culture: neg for now sputum culture: pending urine analysis: neg nitr., leuk Empirically treated with Rocephin and azithromycin will finish tx. with levofloxacin 2. COPD continue Nebs Smoking cessation was discussed 3. Coronary artery disease Continue metoprolol and Lipitor and aspirin 4. Chronic pain Will treat with requip, hydrocodone 5. Edema will give a few days of diuretics follow up in the clinic - Discharge Data Discharge Date: 07/04/17 Discharge Disposition: Home, Self-Care 01 Condition: Good - Discharge Diagnosis/Problem(s) (1) Anemia SNOMED Code(s): 529455963 ICD Code: D64.9 - ANEMIA, UNSPECIFIED Status: Acute Current Visit: No (2) Myelodysplastic syndrome SNOMED Code(s): 657126670 ICD Code: D46.9 - MYELODYSPLASTIC SYNDROME, UNSPECIFIED Status: Acute Current Visit: No (3) Acute bronchitis SNOMED Code(s): 34697725 ICD Code: J20.9 - ACUTE BRONCHITIS, UNSPECIFIED Status: Acute Current Visit: Yes - Patient Instructions Diet: Heart Healthy Diet Activity: As Tolerated - Discharge Plan Prescriptions/Med Rec: Furosemide [Lasix] 20 mg PO DAILY #3 tablet Levofloxacin 500 mg PO DAILY #7 tablet Home Medications: Home Meds Aspirin [Aspirin EC] 325 mg PO DAILY 06/05/14 [History] Darbepoetin Chuy [Aranesp] 1 injection SUBCUT ASDIRECTED 06/05/14 [History] Hydrocodone/Acetaminophen [Hydrocodon-Acetaminophn 10-325] 1 tab PO Q4H [History] Metoprolol Succinate [Toprol Xl] 50 mg PO DAILY 06/05/14 [History] Omeprazole 20 mg PO BID 06/05/14 [History] rOPINIRole [Requip] 1 mg PO Q4H PRN 06/05/14 [History] Ascorbate Calcium [Vitamin C] 500 mg PO DAILY 06/15/14 [History] Multivitamins,Therapeutic [Thera] 1 each PO DAILY #30 tab 06/21/14 [Rx] Albuterol [Proventil HFA] 2 puff INH QID PRN 04/29/15 [History] Furosemide [Lasix] 20 mg PO DAILY #3 tablet 07/04/17 [Rx] Levofloxacin 500 mg PO DAILY #7 tablet 07/04/17 [Rx] Patient Handouts: Acute Bronchitis, [id number] Referrals: PCP,None [Primary Care Provider] - (dr. Smyth in 2-3 days) - Discharge Summary/Plan Comment DC Time >30 min.: No - Patient Data Vitals - Most Recent: Last Vital Signs Temp 36.8 C 07/04/17 07:00 Pulse 68 07/04/17 08:07 Resp 20 07/04/17 07:00 BP 135/53 L 07/04/17 08:07 Pulse Ox 94 L 07/04/17 07:00 Weight - Most Recent: 64.41 kg I&O - Last 24 hours: Intake & Output 07/03/17 07/04/17 07/04/17 22:59 06:59 14:59 Intake Total 900 Balance 900 Lab Results - Last 24 hrs: Laboratory Results - last 24 hr 07/04/17 07/04/17 Range/Units 05:50 05:50 WBC 7.8 (5.0-10.0) 10^3/uL RBC 2.70 L (4.6-6.2) 10^6/uL Hgb 8.3 L (14.0-18.0) g/dL Hct 27.1 L (40.0-54.0) % MCV 100.4 H (80-100) fL MCH 30.7 (27.0-34.0) pg MCHC 30.6 L (33.0-35.0) g/dL Plt Count 273 (150-450) 10^3/uL Lymph % (Auto) 27.4 (20.5-50.1) % [place] % (Auto) 14.1 H (2-8) % Eos % (Auto) 1.3 (1.0-3.0) % Add Manual Diff Yes Neutrophils % (Manual) 57 (42-75) % Band Neutrophils % 5 % Lymphocytes % (Manual) 23 (20-50) % Monocytes % (Manual) 11 H (2-8) % Eosinophils % (Manual) 1 (1-3) % Basophils % (Manual) 1 Myelocytes % 2 Nucleated RBCs 1 /100WBC Atypical Lymphocytes Few Platelet Estimate Adequate Giant Platelets Few Macrocytosis 1+ slight Target Cells 2+ moderate Stomatocytes 2+ moderate Elliptocytes 1+ slight Sodium 140 (135-145) mmol/L Potassium 4.5 (3.6-5.0) mmol/L Chloride 107 (101-111) mmol/L Carbon Dioxide 27.0 (21.0-31.0) mmol/L Anion Gap 10.5 BUN 15 (7-18) mg/dL Creatinine 0.9 (0.6-1.3) mg/dL Est Cr Clr Drug Dosing 66.95 mL/min Estimated GFR (MDRD) > 60 Glucose 91 (74-105) mg/dL Calcium 7.9 L (8.4-10.2) mg/dl Med Orders - Current: Current Medications Acetaminophen (Tylenol) 650 mg PO Q4H PRN PRN Reason: Pain (Mild 1-3)/fever Hydrocodone Bitart/Acetaminophen ([place] 325-10 Mg) 1 tab PO Q4H [facility] Last Admin: 07/04/17 06:32 Dose: 1 tab Albuterol/Ipratropium (Duoneb 3.0-0.5 Mg/3 Ml) 3 ml NEB Q4HRRT PRN PRN Reason: sob Last Admin: 07/03/17 07:27 Dose: 3 ml Ascorbic Acid (Vitamin C) 500 mg PO DAILY [facility] Last Admin: 07/04/17 08:08 Dose: 500 mg Aspirin (Ecotrin) 325 mg PO DAILY [facility] Last Admin: 07/04/17 08:07 Dose: 325 mg Atorvastatin Calcium (Lipitor) 10 mg PO BEDTIME [facility] Last Admin: 07/03/17 20:33 Dose: 10 mg Budesonide (Pulmicort) 0.5 mg NEB BIDRT [facility] Last Admin: 07/04/17 06:47 Dose: 0.5 mg Heparin Sodium (Porcine) (Heparin Sodium) 5,000 units SUBCUT Q8HR [facility] Last Admin: 07/04/17 06:31 Dose: 5,000 units Azithromycin 500 mg/ Sodium (Chloride) 250 mls @ 250 mls/hr IV Q24H [facility] Last Admin: 07/03/17 20:33 Dose: 250 mls/hr Ceftriaxone Sodium 1 gm/ (Sodium Chloride) 50 mls @ 100 mls/hr IV Q24H [facility] Last Admin: 07/03/17 18:02 Dose: 100 mls/hr Loratadine (Claritin) 10 mg PO DAILY [facility] Last Admin: 07/04/17 08:07 Dose: 10 mg Metoprolol Succinate (Toprol Xl) 50 mg PO DAILY [facility] Last Admin: 07/04/17 08:07 Dose: 50 mg Multivitamins (Thera) 1 each PO DAILY [facility] Last Admin: 07/04/17 08:07 Dose: 1 each Omeprazole (Omeprazole) 20 mg PO BID [facility] Last Admin: 07/04/17 08:07 Dose: 20 mg Ropinirole HCl (Requip) 1 mg PO Q4H [facility] Last Admin: 07/04/17 06:31 Dose: 1 mg Sodium Chloride (Saline Flush) 10 ml FLUSH ASDIRECTED PRN PRN Reason: Keep Vein Open Last Admin: 07/03/17 18:01 Dose: 10 ml Zolpidem Tartrate (Ambien) 5 mg PO BEDTIME PRN PRN Reason: Sleep Discontinued Medications Acetaminophen (Tylenol Extra Strength) 500 mg PO ONETIME ONE Stop: 07/02/17 17:24 Last Admin: 07/02/17 17:43 Dose: 500 mg Hydrocodone Bitart/Acetaminophen ([place] 325-10 Mg) 1 tab PO Q4H [facility] Last Admin: 07/03/17 02:05 Dose: 1 tab Albuterol (Proventil Hfa) gm INH QID PRN PRN Reason: Shortness of Breath Albuterol/Ipratropium (Duoneb 3.0-0.5 Mg/3 Ml) 3 ml NEB ONETIME ONE Stop: 07/02/17 17:24 Last Admin: 07/02/17 17:41 Dose: 3 ml Ceftriaxone Sodium 2 gm/ (Sodium Chloride) 100 mls @ 200 mls/hr IV ONETIME ONE Stop: 07/02/17 18:28 Last Admin: 07/02/17 18:33 Dose: 200 mls/hr Sodium Chloride (Normal Saline) 1,000 mls @ 125 mls/hr IV ASDIRECTED [facility] Last Infusion: 07/03/17 10:19 Dose: Infused Loratadine (Claritin) 10 mg PO BEDTIME [facility] Last Admin: 07/02/17 21:53 Dose: Not Given Ropinirole HCl (Requip) 1 mg PO Q4H PRN PRN Reason: PAIN IN LEG AND BACK *Q Meaningful Use (DIS) - VTE *Q VTE Criteria *Q: - Stroke *Q Stroke Criteria *Q: - AMI *Q AMI Criteria *Q:
[2017-07-04 10:19] VITALS: BP 113/85
== END 2017-07-04 10:40 | disposition home or self-care (01) | DRG 144 ==
LOC: DL.ED 17:08 → UNDOADMIN 18:51 → DL.MS 18:51
PROVIDERS: ADMIT Internal Medicine; ATTEND Internal Medicine
DX: J20.9 Acute bronchitis, unspecified (principal); J18.9 Pneumonia, unspecified organism; I25.2 Old myocardial infarction; I10 Essential (primary) hypertension; G89.29 Other chronic pain; M54.9 Dorsalgia, unspecified; Z86.73 Personal history of transient ischemic attack (TIA), and cerebral infarction without residual deficits; D46.9 Myelodysplastic syndrome, unspecified; G25.81 Restless legs syndrome; F17.210 Nicotine dependence, cigarettes, uncomplicated; Z88.8 Allergy status to other drugs, medicaments and biological substances; Z91.030 Bee allergy status; Z79.82 Long term (current) use of aspirin; Z79.899 Other long term (current) drug therapy; D64.9 Anemia, unspecified; J44.9 Chronic obstructive pulmonary disease, unspecified; I25.10 Atherosclerotic heart disease of native coronary artery without angina pectoris; R60.9 Edema, unspecified
CPT/HCPCS: 36415; 71020; 80048; 80053; 81001; 83605; 85025; 87040; 87070; 87086; 87186; 87205; 94640; 94667; 96374; 99285; A9270-GY; J0456; J0696; J1644; J7030; J7050

== ENCOUNTER 2019-04-16 12:09 | Emergency (ER) | payer MEDICARE, BC ==
[2019-04-16 12:18] VITALS: BP 139/58
[2019-04-16] MEDS ORDERED: predniSONE 20 MG Tab PO ONE (12:32)
--- NOTE | 2019-04-16 12:43 | EDM.PDOC ---
Scribed by Helga Nolan 04/16/19 1241 for Godfrey Goff MD ED HPI GENERAL MEDICAL PROBLEM - General Chief Complaint: Allergic Reaction Stated Complaint: ALLERGIC TO BEE STINGS AND JUST GOT STUNG PER LEONOR Time Seen by Provider: 04/16/19 12:14 Source of Information: Reports: Patient, RN, RN Notes Reviewed History Limitations: Reports: No Limitations - History of Present Illness INITIAL COMMENTS - FREE TEXT/NARRATIVE: Patient presents to ER with complaint that he was stung by a wasp or hornet on the lower abdominal wall about 1/2 hour ago, did not take any Benadryl. He admits to 5/10 chronic back pain. In the past he had a reaction and was recommended that he carry an epi pin, but is not carrying or has one. Pt denies cough, wheezing, swelling of the face, lips, tongue, or throat. Denies any difficulty breathing. Onset: Today Duration: Constant Location: Reports: Generalized Quality: Reports: Ache Severity: Moderate Improves with: Reports: None Worsens with: Reports: None Associated Symptoms: Reports: No Other Symptoms Back Pain Score (Numeric/FACES): 5 - Related Data Allergies Allergy/AdvReac Type Severity Reaction Status Date / Time bee venom protein (honey bee) Allergy Swelling Verified 04/16/19 12:19 gabapentin Allergy Cannot Verified 04/16/19 12:19 Remember naproxen [From Naprosyn] Allergy Swelling Verified 04/16/19 12:19 pregabalin [From Lyrica] Allergy Excitabilit Verified 04/16/19 12:19 y Home Meds: Home Meds Darbepoetin Chuy [Aranesp] 1 injection SUBCUT ASDIRECTED 06/05/14 [History] Hydrocodone/Acetaminophen [Hydrocodon-Acetaminophn 10-325] 1 tab PO Q4H PRN [History] Metoprolol Succinate [Toprol Xl] 50 mg PO DAILY 06/05/14 [History] Omeprazole 20 mg PO BID 06/05/14 [History] rOPINIRole [Requip] 6 mg PO DAILY PRN 06/05/14 [History] Ascorbate Calcium [Vitamin C] 500 mg PO DAILY 06/15/14 [History] Multivitamins,Therapeutic [Thera] 1 each PO DAILY #30 tab 06/21/14 [Rx] Albuterol [Proventil HFA] 2 puff INH QID PRN 04/29/15 [History] Aspirin [Ecotrin EC] 81 mg PO DAILY 12/14/17 [History] Isosorbide Mononitrate [Imdur] 30 mg PO DAILY 12/14/17 [History] atorvaSTATin Calcium [Atorvastatin Calcium] 10 mg PO BEDTIME 12/14/17 [History] Past Medical History HEENT History: Reports: None Cardiovascular History: Reports: Hypertension, PA Respiratory History: Reports: COPD, SOB Gastrointestinal History: Reports: None Genitourinary History: Reports: None Musculoskeletal History: Reports: Back Pain, Chronic, Other (See Below) Other Musculoskeletal History: lumbar degenerative disc disease Neurological History: Reports: CVA, Other (See Below) Other Neuro History: restless legs Psychiatric History: Reports: None Endocrine/Metabolic History: Reports: None Hematologic History: Reports: Anemia Other Hematologic History: myelodysplastic syndrome Immunologic History: Reports: None Oncologic (Cancer) History: Reports: Other (See Below) Other Oncologic History: skin Dermatologic History: Reports: Other (See Below) Other Dermatologic History: skin cancer to back - Infectious Disease History Other Infectious Disease History: pt cannot remember - Past Surgical History HEENT Surgical History: Reports: None Cardiovascular Surgical History: Reports: Carotid Endarterectomy GI Surgical History: Reports: Appendectomy Social & Family History - Family History Family Medical History: Noncontributory - Caffeine Use Caffeine Use: Reports: Coffee, Soda - Living Situation & Occupation Living situation: Reports: ED ROS ALLERGIC REACTION - Review of Systems Review Of Systems: ROS reveals no pertinent complaints other than HPI. ED EXAM GENERAL NO PERIP PULSE - Physical Exam Exam: See Below Exam Limited By: No Limitations General Appearance: Alert, WD/WN, No Apparent Distress Eye Exam: Bilateral Eye: Normal Inspection Nose: Normal Inspection, Normal Mucosa, No Blood Throat/Mouth: Normal Inspection, Normal Lips, Normal Teeth, Normal Gums, Normal Oropharynx, Normal Voice, No Airway Compromise Head: Atraumatic, Normocephalic Neck: Normal Inspection, Supple, Non-Tender, Full Range of Motion Respiratory/Chest: No Respiratory Distress, Lungs Clear, Normal Breath Sounds, No Accessory Muscle Use, Chest Non-Tender Cardiovascular: Regular Rate, Rhythm GI/Abdominal: Normal Bowel Sounds, Soft, Non-Tender Extremities: Normal Inspection Neurological: Alert, Oriented, CN II-XII Intact, Normal Cognition, No Motor/ Sensory Deficits Psychiatric: Normal Mood Skin Exam: Warm, Dry, Intact, Other (12cm x 8cm area of erythema with a central tiny puncture consistent with Hx of wasp sting, no urticaria.) Course - Vital Signs Last Recorded V/S: Last Vital Signs Temp 98.4 F 04/16/19 12:17 Pulse 95 04/16/19 12:17 Resp 20 04/16/19 12:17 BP 139/58 L 04/16/19 12:17 Pulse Ox 94 L 04/16/19 12:17 - Orders/Labs/Meds Meds: Medications Discontinued Medications Generic Name Dose Route Start Last Admin Trade Name Freq PRN Reason Stop Dose Admin Prednisone 40 mg 04/16/19 12:32 Prednisone PO 04/16/19 12:33 ONETIME ONE Departure - Departure Time of Disposition: 12:38 Disposition: Home, Self-Care 01 Condition: Good Clinical Impression: Wasp sting Qualifiers: Encounter type: initial encounter Injury intent: accidental or unintentional Qualified Code(s): T63.461A - Toxic effect of venom of wasps, accidental ( unintentional), initial encounter Local reaction to insect sting Qualifiers: Encounter type: initial encounter Injury intent: accidental or unintentional Qualified Code(s): T63.481A - Toxic effect of venom of other arthropod, accidental (unintentional), initial encounter - Discharge Information *PRESCRIPTION DRUG MONITORING PROGRAM REVIEWED*: No *COPY OF PRESCRIPTION DRUG MONITORING REPORT IN PATIENT JIL: No Instructions: Bee, Wasp, or Hornet Sting, Adult Forms: ED Department Discharge Additional Instructions: Buy a bottle of over the counter Benadryl 25mg. If any further signs of allergic reaction, or any future stings, take as directed on the bottle. Go to the nearest ER or call 911 for any allergic reactions that cause swelling to the face, lips, mouth or throat, or any difficulty breathing. I have read and agree with the documentation that has been completed regarding this visit. By signing this record, I attest that the documentation was completed in my physical presence and is an accurate record of the encounter.
== END 2019-04-16 12:48 | disposition home or self-care (01) ==
LOC: DL.ED 12:09
DX: T63.461A Toxic effect of venom of wasps, accidental (unintentional), initial encounter (principal); T63.481A Toxic effect of venom of other arthropod, accidental (unintentional), initial encounter; I10 Essential (primary) hypertension; I25.2 Old myocardial infarction; J44.9 Chronic obstructive pulmonary disease, unspecified; Z86.73 Personal history of transient ischemic attack (TIA), and cerebral infarction without residual deficits; Z79.82 Long term (current) use of aspirin; Z79.899 Other long term (current) drug therapy; Z88.8 Allergy status to other drugs, medicaments and biological substances; Z91.030 Bee allergy status
CPT/HCPCS: 99282; A9270

== ENCOUNTER 2019-05-20 09:21 | Emergency (ER) | payer MEDICARE, BC ==
--- NOTE | 2019-05-20 09:51 | EDM.PDOC ---
ED HPI GENERAL MEDICAL PROBLEM - General Chief Complaint: Respiratory Problem Stated Complaint: CONFUSION Time Seen by Provider: 05/20/19 09:41 Source of Information: Reports: Patient, Old Records, RN, RN Notes Reviewed History Limitations: Reports: No Limitations - History of Present Illness INITIAL COMMENTS - FREE TEXT/NARRATIVE: Pt presents to ER from home by POV with report that the family found the pt "profoundly" confused this morning. states pt has frequent periods of confusion, but usually are not as severe and shorter duration than this morning. The confusion seems to have resolved prior to the pt arriving to the ER. The pt denies confusion, and per the deburrer strip the pt is alert and oriented x3 and answers all questions without any evidence of confusion currently. Pt admits that he is weak. Pt reports that he was unsteady today and had a ground level fall denies injury from fall, LOC, neck pain or head injury. He states he fell sideways on to right side. Records indicate pt has Hx of CAD/SC, CVA, myelodysplastic disease, non-small cell lung CA, VAT, RLL & RML lobectomies (on 04/26/19) with subsequent pneumothorax, and pneumonia. Pt has a PICC line and is currently receiving outpt. IV antibiotics. Pt denies any recent fever, chills, N /V, rash, edema, or hemoptysis. Onset: Today Duration: Resolved Prior to Arrival Location: Reports: Generalized Quality: Reports: Ache (in right chest (since surgery)) Severity: Moderate Improves with: Reports: None Worsens with: Reports: None Lower Back Pain Score (Numeric/FACES): 5 - Related Data Allergies Allergy/AdvReac Type Severity Reaction Status Date / Time bee venom protein (honey bee) Allergy Facial Verified 05/20/19 10:24 Swelling naproxen [From Naprosyn] Allergy Swelling Verified 05/20/19 10:24 gabapentin AdvReac Cannot Verified 05/20/19 10:24 Remember pregabalin [From Lyrica] AdvReac Excitabilit Verified 05/20/19 10:24 y Home Meds: Home Meds Hydrocodone/Acetaminophen [Hydrocodon-Acetaminophn 10-325] 1 tab PO Q4H PRN [History] Metoprolol Succinate [Toprol Xl] 50 mg PO DAILY 06/05/14 [History] Omeprazole 20 mg PO BID 06/05/14 [History] Multivitamins,Therapeutic [Thera] 1 each PO DAILY #30 tab 06/21/14 [Rx] Albuterol [Proventil HFA] 2 puff INH QID PRN 04/29/15 [History] Aspirin [Ecotrin EC] 81 mg PO DAILY 12/14/17 [History] atorvaSTATin Calcium [Atorvastatin Calcium] 10 mg PO QAM 12/14/17 [History] Albuterol Sulfate [Albuterol Sulfate Hfa] 2 puff INH Q4H PRN 05/04/19 [History] Umeclidinium [place] [Incruse Ellipta*] 1 puff IN DAILY 05/04/19 [History] rOPINIRole HCl [Ropinirole ER] 4 mg PO 6XDAY 05/04/19 [History] Furosemide 40 mg PO DAILY 05/14/19 [History] Albuterol/Ipratropium [DuoNeb 3.0-0.5 MG/3 ML] 3 ml INH QID PRN 05/20/19 [ History] Apixaban [Eliquis] 2.5 mg PO BID 05/20/19 [History] Ascorbate Calcium [Calcium Ascorbate] 500 mg PO DAILY 05/20/19 [History] Budesonide [Pulmicort] 0.5 mg IH 05/20/19 [History] Past Medical History HEENT History: Reports: None Cardiovascular History: Reports: CAD, Hypertension, [place] Respiratory History: Reports: COPD, Intubation, Previous, Pneumothorax, SOB Gastrointestinal History: Reports: None Genitourinary History: Reports: None Musculoskeletal History: Reports: Back Pain, Chronic, Other (See Below) Other Musculoskeletal History: lumbar degenerative disc disease Neurological History: Reports: CVA, Other (See Below) Other Neuro History: restless legs Psychiatric History: Reports: None Endocrine/Metabolic History: Reports: None Hematologic History: Reports: Anemia Other Hematologic History: myelodysplastic syndrome Immunologic History: Reports: None Oncologic (Cancer) History: Reports: Lung (Non-small cell CA right lung), Other (See Below) (Myelodysplastic disease) Other Oncologic History: skin Dermatologic History: Reports: Other (See Below) Other Dermatologic History: skin cancer to back - Infectious Disease History Other Infectious Disease History: pt cannot remember - Past Surgical History Head Surgeries/Procedures: Reports: None HEENT Surgical History: Reports: None Cardiovascular Surgical History: Reports: Carotid Endarterectomy Respiratory Surgical History: Reports: Lung Biopsies, Lung Resection (RML, RLL) , Thoracotomy, Other (See Below) GI Surgical History: Reports: Appendectomy Social & Family History - Family History Family Medical History: Noncontributory - Tobacco Use Smoking Status *Q: Former Smoker Tobacco Use Within Last Twelve Months: Cigarettes Years of Tobacco use: 63 Used Tobacco, but Quit: Yes - Caffeine Use Caffeine Use: Reports: Coffee - Living Situation & Occupation Living situation: Reports: , with Spouse Occupation: Retired ED ROS GENERAL - Review of Systems Review Of Systems: ROS reveals no pertinent complaints other than HPI. ED EXAM, GENERAL - Physical Exam Exam: See Below Exam Limited By: No Limitations General Appearance: Alert, No Apparent Distress, Thin, Other (Chronically ill appearing) Eye Exam: Bilateral Eye: EOMI, Normal Inspection, PERRL Ears: Normal External Exam Nose: Normal Inspection, Normal Mucosa, No Blood Throat/Mouth: Normal Inspection, Normal Lips, Normal Oropharynx, Normal Voice, No Airway Compromise Head: Atraumatic, Normocephalic Neck: Normal Inspection, Supple, Non-Tender, Full Range of Motion Respiratory/Chest: No Respiratory Distress, No Accessory Muscle Use, Decreased Breath Sounds, Crackles, Rhonchi (Right) Cardiovascular: Regular Rate, Rhythm GI/Abdominal: Normal Bowel Sounds, Soft, Non-Tender Back Exam: Normal Inspection Extremities: Normal Inspection Neurological: Alert, Oriented, CN II-XII Intact, Normal Cognition, No Motor/ Sensory Deficits, Other (Generalized weakness) Psychiatric: Normal Mood Skin Exam: Warm, Dry, Intact, Normal Color, No Rash EKG INTERPRETATION EKG Date: 05/20/19 Time: 10:04 Rhythm: Other (SR) Rate (Beats/Min): 73 [place]: Normal P-Wave: Present QRS: Wide (non-specific IVCD, Chronic inferior Q waves. LVH.) ST-T: Other (T wave inversion V2 - V5, isolated ST-T segment elevation in V3) Comparison: Change From Previous EKG (EKG dated 05/04/19 showed no ant/lat. T wave inversion.) Course - Vital Signs Last Recorded V/S: Last Vital Signs Temp 98.8 F 05/20/19 09:32 Pulse 74 05/20/19 09:54 Resp 18 05/20/19 09:54 BP 119/52 L 05/20/19 09:54 Pulse Ox 100 05/20/19 09:54 - Orders/Labs/Meds Orders: Active Orders 24 hr Category Date Time Status EKG 12 Lead [EKG Documentation Completion] [RC] STAT Care 05/20/19 10:00 Active Chest 1V Frontal [CR] Stat Exams 05/20/19 10:56 Taken CBC WITH AUTO DIFF [HEME] Stat Lab 05/20/19 10:03 Results MANUAL DIFFERENTIAL QA/NC [HEME] Stat Lab 05/20/19 10:03 Results UA RFX LAINEY AND CULT IF INDIC [URIN] Stat Lab 05/20/19 09:59 Ordered Labs: Laboratory Tests 05/20/19 05/20/19 05/20/19 Range/Units 10:02 10:03 10:03 WBC 13.2 H (5.0-10.0) 10^3/uL RBC 3.06 L (4.6-6.2) 10^6/uL Hgb 9.1 L (14.0-18.0) g/dL Hct 29.8 L (40.0-54.0) % MCV 97.4 D (80-100) fL MCH 29.7 (27.0-34.0) pg MCHC 30.5 L (33.0-35.0) g/dL Plt Count 338 D (150-450) 10^3/uL Add Manual Diff Yes Sodium 139 (135-145) mmol/L Potassium 4.5 (3.6-5.0) mmol/L Chloride 100 L (101-111) mmol/L Carbon Dioxide 27.0 (21.0-31.0) mmol/L Anion Gap 16.5 BUN 17 (7-18) mg/dL Creatinine 1.1 (0.6-1.3) mg/dL Est Cr Clr Drug Dosing 49.90 mL/min Estimated GFR (MDRD) > 60 BUN/Creatinine Ratio 15.45 Glucose 104 (74-105) mg/dL Lactic Acid (0.5-2.2) mmol/L Calcium 7.9 L (8.4-10.2) mg/dl Magnesium 1.8 (1.8-2.5) mg/dL Total Bilirubin 0.6 (0.2-1.0) mg/dL AST 35 (10-42) IU/L ALT 34 (10-60) IU/L Alkaline Phosphatase 72 (42-121) IU/L Ammonia (11-35) umol/L Troponin I (0.00-0.02) ng/ml B-Natriuretic Peptide 1390 H (0-100) pg/ml Total Protein 6.7 (6.7-8.2) g/dl Albumin 2.9 L (3.2-5.5) g/dl Globulin 3.8 Albumin/Globulin Ratio 0.76 TSH, Ultra Sensitive 3.32 (0.45-5.33) uIu/mL 05/20/19 05/20/19 05/20/19 Range/Units 10:03 10:03 10:03 WBC (5.0-10.0) 10^3/uL RBC (4.6-6.2) 10^6/uL Hgb (14.0-18.0) g/dL Hct (40.0-54.0) % MCV (80-100) fL MCH (27.0-34.0) pg MCHC (33.0-35.0) g/dL Plt Count (150-450) 10^3/uL Add Manual Diff Sodium (135-145) mmol/L Potassium (3.6-5.0) mmol/L Chloride (101-111) mmol/L Carbon Dioxide (21.0-31.0) mmol/L Anion Gap BUN (7-18) mg/dL Creatinine (0.6-1.3) mg/dL Est Cr Clr Drug Dosing mL/min Estimated GFR (MDRD) BUN/Creatinine Ratio Glucose (74-105) mg/dL Lactic Acid 1.3 (0.5-2.2) mmol/L Calcium (8.4-10.2) mg/dl Magnesium (1.8-2.5) mg/dL Total Bilirubin (0.2-1.0) mg/dL AST (10-42) IU/L ALT (10-60) IU/L Alkaline Phosphatase (42-121) IU/L Ammonia 6 L (11-35) umol/L Troponin I 0.06 H* (0.00-0.02) ng/ml B-Natriuretic Peptide (0-100) pg/ml Total Protein (6.7-8.2) g/dl Albumin (3.2-5.5) g/dl Globulin Albumin/Globulin Ratio TSH, Ultra Sensitive (0.45-5.33) uIu/mL Meds: Medications Discontinued Medications Generic Name Dose Route Start Last Admin Trade Name Freq PRN Reason Stop Dose Admin Aspirin 324 mg 05/20/19 10:52 Aspirin PO 05/20/19 10:53 ONETIME ONE Furosemide 40 mg 05/20/19 10:53 Lasix IVPUSH 05/20/19 10:54 NOW ONE Departure - Departure Time of Disposition: 11:18 Disposition: DC/Tfer to Acute Hospital 02 Condition: Serious Clinical Impression: Acute ischemic heart disease, Transient alteration of awareness Acute CHF (congestive heart failure) Qualifiers: Heart failure type: unspecified Qualified Code(s): I50.9 - Heart failure, unspecified - Discharge Information *PRESCRIPTION DRUG MONITORING PROGRAM REVIEWED*: No *COPY OF PRESCRIPTION DRUG MONITORING REPORT IN PATIENT JIL: No Forms: ED Department Discharge, Interfacility Transfer EMTALA - My Orders Last 24 Hours: My Active Orders 05/20/19 09:59 UA RFX LAINEY AND CULT IF INDIC [URIN] Stat 05/20/19 10:00 EKG 12 Lead [EKG Documentation Completion] [RC] STAT 05/20/19 10:03 CBC WITH AUTO DIFF [HEME] Stat MANUAL DIFFERENTIAL QA/NC [HEME] Stat 05/20/19 10:56 Chest 1V Frontal [CR] Stat - Assessment/Plan Last 24 Hours: My Active Orders 05/20/19 09:59 UA RFX LAINEY AND CULT IF INDIC [URIN] Stat 05/20/19 10:00 EKG 12 Lead [EKG Documentation Completion] [RC] STAT 05/20/19 10:03 CBC WITH AUTO DIFF [HEME] Stat MANUAL DIFFERENTIAL QA/NC [HEME] Stat 05/20/19 10:56 Chest 1V Frontal [CR] Stat
[2019-05-20 09:55] VITALS: BP 119/52; PULSE 74
[2019-05-20 10:33] LABS: ANION GAP 16.5; CHLORIDE,CL 100 mmol/L (101-111); SODIUM,NA 139 mmol/L (135-145)
[2019-05-20] MEDS ORDERED: Aspirin 81 MG Tab.Chew PO ONE (10:52)
[2019-05-20] MEDS ORDERED: Furosemide 40 MG/4 ML VIAL IVPUSH ONE (10:53)
--- NOTE | 2019-05-20 11:37 | CR ---
EXAMINATION: Chest 1V Frontal SEX: Male AGE: 73 years CLINICAL HISTORY: 73-year-old male with recently reported "small right apical pneumothorax and dependent pleural effusion" (04 May 2019). chest pain INTERPRETATION: Upright AP portable chest. 1. No residual evidence of "right pneumothorax". 2. *Asymmetric increased dense (new) right lower lobe consolidation and/or underlying dependent pleural fluid accumulation since 04 May 2019 film (all abnormalities right chest are new since 02 July 2017 comparison exam). 3. Long-arm central venous line on the right with the tip in the region of the superior vena cava (external rn cardiac rehab leads). 4. Normal cardiac silhouette without cephalization of vascular flow and left lung is clear i.e. no infiltrate/atelectasis or effusion. 5. Note: Prominent hilar may reflect pulmonary artery hypertension cannot exclude underlying lymphadenopathy. CONCLUSION: Abnormal extensive right lower lobe consolidation radiographically worse since 04 May 2019 exam.
== END 2019-05-20 12:09 ==
LOC: DL.ED 09:21
DX: I24.9 Acute ischemic heart disease, unspecified (principal); I11.0 Hypertensive heart disease with heart failure; I50.9 Heart failure, unspecified; R40.4 Transient alteration of awareness; I25.2 Old myocardial infarction; J44.9 Chronic obstructive pulmonary disease, unspecified; I25.10 Atherosclerotic heart disease of native coronary artery without angina pectoris; Z85.118 Personal history of other malignant neoplasm of bronchus and lung; Z85.828 Personal history of other malignant neoplasm of skin; Z86.73 Personal history of transient ischemic attack (TIA), and cerebral infarction without residual deficits; Z91.030 Bee allergy status; Z88.6 Allergy status to analgesic agent; Z88.8 Allergy status to other drugs, medicaments and biological substances; Z79.899 Other long term (current) drug therapy; Z79.82 Long term (current) use of aspirin; Z79.01 Long term (current) use of anticoagulants; Z87.891 Personal history of nicotine dependence
CPT/HCPCS: 36415; 71045; 80053; 82140; 83605; 83735; 83880; 84443; 84484; 85025; 93005; 96374; 99285; A9270; J1940

== ENCOUNTER 2019-05-25 14:11 | Emergency (ER) | payer MEDICARE, BC ==
[2019-05-25 14:57] VITALS: BP 143/46; PULSE 74
[2019-05-25] MEDS ORDERED: Sodium Chloride 0.9% 10 ML Syringe FLUSH PRN (14:57)
--- NOTE | 2019-05-25 14:57 | EDM.PDOC ---
ED HPI GENERAL MEDICAL PROBLEM - General Chief Complaint: Fever Stated Complaint: LUNG CANCER, CONFUSION, PER PT Time Seen by Provider: 05/25/19 14:57 Source of Information: Reports: Patient, Family, Old Records, RN, RN Notes Reviewed History Limitations: Reports: Altered Mental Status - History of Present Illness INITIAL COMMENTS - FREE TEXT/NARRATIVE: Pt presents to ER from home with family reporting that the pt has had worsening confusion since being discharged from [facility] this past week. He has been receiving outpt. IV Invanz 1g daily through [facility]. Today pt reported feeling feverish, temp. 100.1F. He states his shortness breath is about the same as it has been. Pt has been very weak and has had some non- injury falls, but none today. Pt's states she cannot care for him safely any longer because he wanders when confused. Records indicate patient has history of CAD/[place], CVA, myelodysplastic disease, non-small cell lung CA, VAT, RLL and RML lobectomies (on 04/26/19) with subsequent pneumothorax and pneumonia. Patient has a PICC line and is currently receiving outpatient IV antibiotics. Patient denies any recent fever, chills, nausea, vomiting, rash, edema or hemoptysis. Duration: Chronic, Constant, Getting Worse Location: Reports: Generalized Severity: Severe Improves with: Reports: None Worsens with: Reports: None Associated Symptoms: Reports: No Other Symptoms - Related Data Allergies Allergy/AdvReac Type Severity Reaction Status Date / Time bee venom protein (honey bee) Allergy Facial Verified 05/20/19 10:24 Swelling naproxen [From Naprosyn] Allergy Swelling Verified 05/20/19 10:24 gabapentin AdvReac Cannot Verified 05/20/19 10:24 Remember pregabalin [From Lyrica] AdvReac Excitabilit Verified 05/20/19 10:24 y Home Meds: Home Meds Hydrocodone/Acetaminophen [Hydrocodon-Acetaminophn 10-325] 1 tab PO Q6H PRN [History] Metoprolol Succinate [Toprol Xl] 50 mg PO DAILY 06/05/14 [History] Omeprazole 20 mg PO BID 06/05/14 [History] Multivitamins,Therapeutic [Thera] 1 each PO DAILY #30 tab 06/21/14 [Rx] Albuterol [Proventil HFA] 2 puff INH Q4H PRN 04/29/15 [History] Aspirin [Ecotrin EC] 81 mg PO DAILY 12/14/17 [History] atorvaSTATin Calcium [Atorvastatin Calcium] 10 mg PO QAM 12/14/17 [History] Umeclidinium [place] [Incruse Ellipta*] 1 puff IN DAILY 05/04/19 [History] rOPINIRole HCl [Ropinirole ER] 2 mg PO TID PRN 05/04/19 [History] Furosemide 40 mg PO DAILY 05/14/19 [History] Albuterol/Ipratropium [DuoNeb 3.0-0.5 MG/3 ML] 3 ml INH QID PRN 05/20/19 [ History] Apixaban [Eliquis] 2.5 mg PO BID 05/20/19 [History] Ascorbate Calcium [Calcium Ascorbate] 500 mg PO DAILY 05/20/19 [History] Budesonide [Pulmicort] 0.5 mg IH BID 05/20/19 [History] Fexofenadine HCl [[place] Allergy] 60 mg DAILY 05/22/19 [History] Past Medical History HEENT History: Reports: None Cardiovascular History: Reports: Afib, CAD, Hypertension, [place] Respiratory History: Reports: COPD, Intubation, Previous, Pneumonia, Recurrent, Pneumothorax, SOB Gastrointestinal History: Reports: None Genitourinary History: Reports: None Musculoskeletal History: Reports: Arthritis, Back Pain, Chronic, Other (See Below) Other Musculoskeletal History: lumbar degenerative disc disease Neurological History: Reports: CVA, Other (See Below) Other Neuro History: restless legs Psychiatric History: Reports: None Endocrine/Metabolic History: Reports: None Hematologic History: Reports: Anemia Other Hematologic History: myelodysplastic syndrome Immunologic History: Reports: None Oncologic (Cancer) History: Reports: Lung, Other (See Below) Other Oncologic History: skin Dermatologic History: Reports: Other (See Below) Other Dermatologic History: skin cancer to back - Infectious Disease History Other Infectious Disease History: pt cannot remember - Past Surgical History Head Surgeries/Procedures: Reports: None HEENT Surgical History: Reports: None Cardiovascular Surgical History: Reports: Carotid Endarterectomy Respiratory Surgical History: Reports: Lung Biopsies, Lung Resection, Thoracotomy, Other (See Below) GI Surgical History: Reports: Appendectomy Social & Family History - Family History Family Medical History: Noncontributory - Caffeine Use Caffeine Use: Reports: Coffee - Living Situation & Occupation Living situation: Reports: , with Spouse Occupation: Retired ED ROS GENERAL - Review of Systems Review Of Systems: ROS reveals no pertinent complaints other than HPI. ED EXAM, SEPSIS - Physical Exam Exam: See Below Exam Limited By: No Limitations General Appearance: Alert, Thin, Other (Chronically ill appearing) Eye Exam: Bilateral Eye: Normal Inspection Nose: Normal Inspection Throat/Mouth: Normal Inspection, Normal Voice, No Airway Compromise Head: Atraumatic, Normocephalic Neck: Normal Inspection Respiratory/Chest: Decreased Breath Sounds (no breath sounds at Rt lower lung field, coarse rhonchi at Rt apex. Left lung with coarse breath sounds, diminished in the left base) Cardiovascular: Regular Rate, Rhythm GI/Abdominal Exam: Normal Bowel Sounds, Soft, Non-Tender, No Distention Back: Normal Inspection Extremities: Normal Inspection (thin), Non-Tender Neurological: Alert, Oriented, No Motor/Sensory Deficits, Other (generalized weak) Psychiatric: Normal Affect, Normal Mood Skin: Warm, Dry, Intact, Normal Color, No Rash Course - Vital Signs Last Recorded V/S: Last Vital Signs Temp 100.1 F 05/25/19 14:23 Pulse 74 05/25/19 14:23 Resp 20 05/25/19 14:23 BP 143/46 H 05/25/19 14:23 Pulse Ox 97 05/25/19 14:23 - Orders/Labs/Meds Orders: Active Orders 24 hr Category Date Time Status Blood Glucose Check, Bedside [RC] ONETIME Care 05/25/19 14:57 Active Peripheral IV Care [RC] . DIRECTED Care 05/25/19 14:58 Active CBC WITH AUTO DIFF [HEME] Stat Lab 05/25/19 15:13 Results CULTURE BLOOD [BC] Stat Lab 05/25/19 15:13 Received CULTURE BLOOD [BC] Stat Lab 05/25/19 15:19 Received INFLUENZA A+B AG SCREEN [RM] Stat Lab 05/25/19 16:20 Ordered MANUAL DIFFERENTIAL QA/NC [HEME] Stat Lab 05/25/19 15:13 Results UA RFX LAINEY AND CULT IF INDIC [URIN] Stat Lab 05/25/19 16:20 Ordered Sodium Chloride 0.9% [Saline Flush] Med 05/25/19 14:57 Active 10 ml FLUSH ASDIRECTED PRN Blood Culture x2 Reflex Set [OM.PC] Stat Oth 05/25/19 14:57 Ordered Peripheral IV Insertion Adult [OM.PC] Stat Oth 05/25/19 14:57 Ordered Medication Orders Sodium Chloride (Saline Flush) 10 ml FLUSH ASDIRECTED PRN PRN Reason: Keep Vein Open Last Admin: 05/25/19 16:11 Dose: 10 ml Labs: Laboratory Tests 05/25/19 05/25/19 05/25/19 Range/Units 15:13 15:13 15:13 WBC 7.5 (5.0-10.0) 10^3/uL RBC 2.98 L (4.6-6.2) 10^6/uL Hgb 8.8 L (14.0-18.0) g/dL Hct 29.1 L (40.0-54.0) % MCV 97.7 (80-100) fL MCH 29.5 (27.0-34.0) pg MCHC 30.2 L (33.0-35.0) g/dL Plt Count 288 (150-450) 10^3/uL Add Manual Diff Yes Sodium 140 (135-145) mmol/L Potassium 4.5 (3.6-5.0) mmol/L Chloride 102 (101-111) mmol/L Carbon Dioxide 29.0 (21.0-31.0) mmol/L Anion Gap 13.5 BUN 28 H (7-18) mg/dL Creatinine 1.1 (0.6-1.3) mg/dL Est Cr Clr Drug Dosing 49.55 mL/min Estimated GFR (MDRD) > 60 BUN/Creatinine Ratio 25.45 Glucose 94 (74-105) mg/dL Lactic Acid 1.2 (0.5-2.2) mmol/L Calcium 8.2 L (8.4-10.2) mg/dl Total Bilirubin 0.6 (0.2-1.0) mg/dL AST 21 (10-42) IU/L ALT 25 (10-60) IU/L Alkaline Phosphatase 77 (42-121) IU/L Total Protein 6.7 (6.7-8.2) g/dl Albumin 3.1 L (3.2-5.5) g/dl Globulin 3.6 Albumin/Globulin Ratio 0.86 Meds: Medications Generic Name Dose Route Start Last Admin Trade Name Freq PRN Reason Stop Dose Admin Sodium Chloride 10 ml 05/25/19 14:57 05/25/19 16:11 Saline Flush FLUSH 10 ml ASDIRECTED PRN Administration Keep Vein Open Discontinued Medications Generic Name Dose Route Start Last Admin Trade Name Freq PRN Reason Stop Dose Admin Ertapenem 1 gm/ Sodium 50 mls @ 100 mls/hr 05/25/19 15:39 05/25/19 16:11 Chloride IV 05/25/19 16:08 100 mls/hr ONETIME ONE Administration Departure - Departure Time of Disposition: 16:14 Disposition: DC/[facility]fer to [facility] 02 Condition: Poor Clinical Impression: Transient alteration of awareness, SOB (shortness of breath), Primary cancer of right lower lobe of lung Pneumonia Qualifiers: Pneumonia type: due to unspecified organism Laterality: right Lung location: lower lobe of lung Qualified Code(s): J18.1 - Lobar pneumonia, unspecified organism - Discharge Information *PRESCRIPTION DRUG MONITORING PROGRAM REVIEWED*: No *COPY OF PRESCRIPTION DRUG MONITORING REPORT IN PATIENT JIL: No Forms: ED Department Discharge, Interfacility Transfer EMTALA - My Orders Last 24 Hours: My Active Orders 05/25/19 14:57 Blood Glucose Check, Bedside [RC] ONETIME Sodium Chloride 0.9% [Saline Flush] 10 ml FLUSH ASDIRECTED PRN Blood Culture x2 Reflex Set [OM.PC] Stat Peripheral IV Insertion Adult [OM.PC] Stat 05/25/19 14:58 Peripheral IV Care [RC] . DIRECTED 05/25/19 15:13 CBC WITH AUTO DIFF [HEME] Stat CULTURE BLOOD [BC] Stat MANUAL DIFFERENTIAL QA/NC [HEME] Stat 05/25/19 15:19 CULTURE BLOOD [BC] Stat 05/25/19 16:20 INFLUENZA A+B AG SCREEN [RM] Stat UA RFX LAINEY AND CULT IF INDIC [URIN] Stat - Assessment/Plan Last 24 Hours: My Active Orders 05/25/19 14:57 Blood Glucose Check, Bedside [RC] ONETIME Sodium Chloride 0.9% [Saline Flush] 10 ml FLUSH ASDIRECTED PRN Blood Culture x2 Reflex Set [OM.PC] Stat Peripheral IV Insertion Adult [OM.PC] Stat 05/25/19 14:58 Peripheral IV Care [RC] . DIRECTED 05/25/19 15:13 CBC WITH AUTO DIFF [HEME] Stat CULTURE BLOOD [BC] Stat MANUAL DIFFERENTIAL QA/NC [HEME] Stat 05/25/19 15:19 CULTURE BLOOD [BC] Stat 05/25/19 16:20 INFLUENZA A+B AG SCREEN [RM] Stat UA RFX LAINEY AND CULT IF INDIC [URIN] Stat
[2019-05-25] MEDS ORDERED: Ertapenem 1 GM in Sodium Chloride 0.9% 50 ML IV ONE (15:39)
[2019-05-25 15:47] LABS: ANION GAP 13.5; CHLORIDE,CL 102 mmol/L (101-111); SODIUM,NA 140 mmol/L (135-145)
== END 2019-05-25 17:50 ==
LOC: DL.ED 14:11
DX: C34.31 Malignant neoplasm of lower lobe, right bronchus or lung (principal); J18.1 Lobar pneumonia, unspecified organism; R40.4 Transient alteration of awareness; I25.2 Old myocardial infarction; I10 Essential (primary) hypertension; J44.9 Chronic obstructive pulmonary disease, unspecified; Z91.030 Bee allergy status; Z88.8 Allergy status to other drugs, medicaments and biological substances; Z79.899 Other long term (current) drug therapy; Z79.82 Long term (current) use of aspirin; Z86.73 Personal history of transient ischemic attack (TIA), and cerebral infarction without residual deficits
CPT/HCPCS: 36415; 80053; 81001; 83605; 85025; 87040; 87804; 96365; 99285; J1335; J7050

== ENCOUNTER 2019-06-02 09:30 | Inpatient (IN) | payer MEDICARE, BC ==
[2019-06-02] MEDS ORDERED: Albuterol 6.7 GM Inhaler INH PRN (16:13)
[2019-06-02] MEDS ORDERED: Melatonin 3 MG Tab PO PRN (16:13)
[2019-06-02] MEDS ORDERED: Acetaminophen 325 MG Tab PO PRN (16:13)
[2019-06-02] MEDS ORDERED: DARBEPOETIN ALFA SQ SCH (16:15)
[2019-06-02] MEDS ORDERED: Ondansetron 4 MG/2 ML SDV IVPUSH PRN (16:16)
[2019-06-02] MEDS ORDERED: Sodium Chloride 0.65% Nasal Spray 45 ML Bottle NAS PRN (16:16)
[2019-06-02] MEDS ORDERED: Acetaminophen/HYDROcodone 325-10 MG Tab PO PRN (16:16)
[2019-06-02] MEDS ORDERED: guaiFENesin 100 MG/5 ML Soln 5 ML UD Cup PO PRN (16:16)
[2019-06-02] MEDS ORDERED: Ondansetron 4 MG Tab.DIS PO PRN (16:16)
[2019-06-02] MEDS ORDERED: Polyethylene Glycol 3350 Powder 17 GM Packet PO PRN (16:16)
[2019-06-02] MEDS ORDERED: Zolpidem 5 MG Tab PO PRN (16:16)
[2019-06-02] MEDS ORDERED: Bisacodyl 5 MG Tab PO PRN (16:16)
[2019-06-02] MEDS ORDERED: Morphine 2 MG/ML Syringe IVPUSH PRN (16:16)
--- NOTE | 2019-06-02 16:57 | PCM.HP ---
H&P History of Present Illness - General Date of Service: 06/02/19 Admit Problem/Dx: Admission Diagnosis/Problem Admission Diagnosis/Problem Pneumonia Source of Information: Patient History Limitations: Reports: No Limitations - History of Present Illness Initial Comments - Free Text/Narative: 73 y/o m w PMHx COPD, HTN, myelodysplastic, chronic anemia, chronic pain syndrome, CAD w hx of VA s/p CVA A/P left carotid endarterectomy, chronic lower back pain with right radiculopathy who recently was diagnosed with lung cancer and underwent VATS of the right lower lobe and right middle lobe lobectomies on 04/26/19. 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 During the hospitalization patient had prolonged air leak postoperatively. He was discharged from hospital with pneumostat tube. He returned to the hospital for readmission next day for significant shortness of breath. He was found to have right-sided hydropneumothorax s/p chest tube placement. According to reports he had been on cefepime and vancomycin since for possible pneumonia. CT chest on 05/09/19 showed right middle lobe and right lower lobe consolidation, possible empyema. He was discharged on 05/11/19 on outpatient IV ertapenem. Then he was rehospitalized for confusion and discharged on . He was readmitted again on 05/25/19 for temperature of 100.1 Fahrenheit, continuous shortness of breath, intermittent confusion, generalized weakness, and multiple falls. On that admission he had no leukocytosis. Chest x-ray showed stable right middle lobe and right paced infiltrate, according to note. CT chest from 05/27/19 showed small right empyema and extensive consolidation in the right lower lung. He underwent bronchoscopy on 05/31/19. He is discharged from [facility] on 06/02/19 to be admitted to [facility] bed to continue IV Zosyn 3.375 g every 8 hours and have physical therapy and became additional therapy for strengthening things. According to notes from 06/01/19: MRSA screen negative, sputum culture on 05/07 no pathogens, sputum culture on 05/25 no pathogens, blood culture on 05/25 negative, sputum culture on 05/27 no pathogens, sputum fungal culture on 05/27 used not cryptococcus, and BAL cultures on 05/31 in the process generalized Pain Score (Numeric/FACES): 5 - Related Data Allergies/Adverse Reactions: Allergies Allergy/AdvReac Type Severity Reaction Status Date / Time bee venom protein (honey bee) Allergy Facial Verified 06/02/19 14:36 Swelling naproxen [From Naprosyn] Allergy Swelling Verified 06/02/19 14:36 gabapentin AdvReac Cannot Verified 06/02/19 14:36 Remember pregabalin [From Lyrica] AdvReac Excitabilit Verified 06/02/19 14:36 y Home Medications: Home Meds Metoprolol Succinate [Toprol Xl] 50 mg PO DAILY 06/05/14 [History] Omeprazole 20 mg PO BID 06/05/14 [History] Multivitamins,Therapeutic [Thera] 1 each PO DAILY #30 tab 06/21/14 [Rx] Albuterol [Proventil HFA] 2 puff INH Q4H PRN 04/29/15 [History] Aspirin [Ecotrin EC] 81 mg PO DAILY 12/14/17 [History] atorvaSTATin Calcium [Atorvastatin Calcium] 10 mg PO DAILY 12/14/17 [History] Umeclidinium [place] [Incruse Ellipta*] 1 puff IN DAILY 05/04/19 [History] Albuterol/Ipratropium [DuoNeb 3.0-0.5 MG/3 ML] 3 ml INH QID 05/20/19 [History] Apixaban [Eliquis] 2.5 mg PO BID 05/20/19 [History] Budesonide [Pulmicort] 0.5 mg IH BID 05/20/19 [History] Fexofenadine HCl [Bronwyn Allergy] 60 mg PO DAILY 05/22/19 [History] Darbepoetin Chuy [Aranesp] 300 mcg SQ Q7D 05/25/19 [History] Acetaminophen [Tylenol] 650 mg PO Q8H PRN 06/02/19 [History] Ascorbic Acid [Vitamin C with Anum Hips] 500 mg PO DAILY 06/02/19 [History] Furosemide [Lasix] 40 mg PO DAILY 06/02/19 [History] Lidocaine 5% [Lidoderm 5%] 700 mg TOP Q24H MDD 12 hours on, 12 hours off [History] Melatonin 3 mg PO BEDTIME PRN 06/02/19 [History] rOPINIRole [Requip] 2 mg PO TID PRN 06/02/19 [History] traZODone HCl [Trazodone HCl] 50 mg PO BEDTIME 06/02/19 [History] Past Medical History HEENT History: Reports: Impaired Vision, Other (See Below) Other HEENT History: reading glasses Cardiovascular History: Reports: Afib, CAD, Hypertension, VA Respiratory History: Reports: COPD, Intubation, Previous, Pneumonia, Recurrent, Pneumothorax, SOB Gastrointestinal History: Reports: None, Chronic Constipation Genitourinary History: Reports: None Musculoskeletal History: Reports: Arthritis, Back Pain, Chronic, Fracture Other Musculoskeletal History: fractured ribs, compression fractures(lumbar) Neurological History: Reports: CVA, Other (See Below) Other Neuro History: restless legs Psychiatric History: Reports: None Endocrine/Metabolic History: Reports: None Hematologic History: Reports: Anemia Other Hematologic History: myelodysplastic syndrome Immunologic History: Reports: None Oncologic (Cancer) History: Reports: Lung Other Oncologic History: skin Dermatologic History: Reports: Other (See Below) Other Dermatologic History: 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 - Infectious Disease History Other Infectious Disease History: pt cannot remember - Past Surgical History Head Surgeries/Procedures: Reports: None HEENT Surgical History: Reports: None Cardiovascular Surgical History: Reports: Carotid Stents, Other (See Below) Other Cardiovascular Surgeries/Procedures: cardiac stents Respiratory Surgical History: Reports: Lung Biopsies, Lung Resection, Thoracotomy, Other (See Below) Other Respiratory Surgeries/Procedures: right lower lobe resection(Sept 10th) GI Surgical History: Reports: Appendectomy Neurological Surgical History: Reports: None Musculoskeletal Surgical History: Reports: None Oncologic Surgical History: Reports: Lobectomy Dermatological Surgical History: Reports: None Social & Family History - Family History Family Medical History: Noncontributory - Tobacco Use Smoking Status *Q: Former Smoker Years of Tobacco use: 60 Used Tobacco, but Quit: Yes Month/Year Tobacco Last Used: 02/02 - Caffeine Use Caffeine Use: Reports: Coffee - Recreational Drug Use Recreational Drug Use: No - Living Situation & Occupation Living situation: Reports: , with Spouse Occupation: Retired H&P Review of Systems - Review of Systems: Review Of Systems: ROS reveals no pertinent complaints other than HPI. Exam - Exam Exam: See Below - Vital Signs Vital Signs: Last Vital Signs Temp 37.1 C 06/02/19 14:23 Pulse 85 06/02/19 14:23 Resp 20 06/02/19 14:23 BP 139/60 06/02/19 14:23 Pulse Ox 99 06/02/19 14:23 Weight: 55.973 kg - Exam General: Alert, Oriented, Cooperative, Mild Distress HEENT: Conjunctiva Clear, EACs Clear, EOMI, Mucosa Moist & [place], Nares Patent, Normal Nasal Septum Neck: Supple, Trachea Midline, +2 Carotid Pulse wo Bruit Lungs: Clear to Auscultation, Normal Respiratory Effort, Decreased Breath Sounds (In the right lower field). No: Crackles, Rales, Rhonchi, Rub, Stridor, Wheezing Cardiovascular: Regular Rate, Regular Rhythm, Normal S1, Normal S2 GI/Abdominal Exam: Normal Bowel Sounds, Soft, Non-Tender, No Organomegaly, No Distention, No Abnormal Bruit. No: Distended, Guarding, Rigid, Rebound, Tender (Male) Exam: Deferred Rectal (Males) Exam: Deferred Back Exam: Normal Inspection, Full Range of Motion. No: CVA Tenderness (L), CVA Tenderness (R) Extremities: Normal Inspection, Normal Range of Motion, Non-Tender, No Pedal Edema, Normal Capillary Refill Skin: Warm, Dry, Intact Neurological: Cranial Nerves Intact Neuro Extensive - Mental Status: Alert, Oriented x3, Normal Mood/Affect Psychiatric: Alert, Normal Affect, Normal Mood Problem List Initiated/Reviewed/Updated: Yes Orders Last 24hrs: Active Orders 24 hr Category Date Time Status Admission Status [Patient Status] [ADT] Routine ADT 06/02/19 14:10 Active Height and Weight [RC] WEEKLY Care 06/02/19 16:19 Active Intake and Output [RC] ASDIRECTED Care 06/02/19 16:16 Active May Shower [RC] ASDIRECTED Care 06/02/19 16:16 Active Notify Provider Vital Signs [RC] ASDIRECTED Care 06/02/19 16:19 Active Oxygen Therapy [RC] PRN Care 06/02/19 16:16 Active Up ad Purvi [RC] ASDIRECTED Care 06/02/19 16:16 Active Up to Chair [RC] ASDIRECTED Care 06/02/19 16:16 Active VTE/DVT Education [RC] PER UNIT ROUTINE Care 06/02/19 16:16 Active Vital Signs [RC] PER UNIT ROUTINE Care 06/02/19 16:16 Active OT Evaluation and Treatment [CONS] Routine Cons 06/02/19 16:16 Active PT Evaluation and Treatment [CONS] Routine Cons 06/02/19 16:16 Active 2 Gram Sodium Diet [DIET] Diet 06/02/19 Breakfast Active Acetaminophen [Tylenol] Med 06/02/19 16:16 Ordered 650 mg PO Q4H PRN Acetaminophen [Tylenol] Med 06/02/19 16:13 Ordered 650 mg PO Q8H PRN Acetaminophen/HYDROcodone [[place]ument 325-10 MG] Med 06/02/19 16:16 Ordered 1 tab PO Q4H PRN Albuterol [Proventil HFA] Med 06/02/19 16:13 Ordered DOSE gm INH Q4H PRN Albuterol/Ipratropium [DuoNeb 3.0-0.5 MG/3 ML] Med 06/02/19 17:00 Ordered 3 ml INH QID Apixaban [Eliquis] Med 06/02/19 21:00 Active 2.5 mg PO BID Ascorbic Acid [Vitamin C] Med 06/03/19 09:00 Ordered 500 mg PO DAILY Aspirin [Halfprin] Med 06/03/19 09:00 Ordered 81 mg PO DAILY Bisacodyl [Dulcolax] Med 06/02/19 16:16 Ordered 5 mg PO DAILY PRN Budesonide [Pulmicort] Med 06/02/19 21:00 Ordered 0.5 mg INH BID Darbepoetin Chuy [Aranesp] Med 06/02/19 16:15 Ordered 300 mcg SQ Q7D Fexofenadine HCl [Bronwyn Allergy] Med 06/03/19 09:00 Ordered 60 mg PO DAILY Furosemide [Lasix] Med 06/03/19 09:00 Ordered 40 mg PO DAILY Lidocaine 5% [Lidoderm 5%] Med 06/02/19 16:15 Ordered 700 mg TOP Q24H Melatonin Med 06/02/19 16:13 Ordered 3 mg PO BEDTIME PRN Metoprolol Succinate [Toprol Xl] Med 06/03/19 09:00 Ordered 50 mg PO DAILY Morphine Med 06/02/19 16:16 Ordered 2 mg IVPUSH Q2H PRN Multivitamins,Therapeutic [Thera] Med 06/03/19 09:00 Ordered 1 each PO DAILY Omeprazole Med 06/02/19 21:00 Ordered 20 mg PO BID Ondansetron [Zofran ODT] Med 06/02/19 16:16 Ordered 4 mg PO Q6H PRN Ondansetron [Zofran] Med 06/02/19 16:16 Ordered 4 mg IVPUSH Q6H PRN Polyethylene Glycol 3350 [MiraLAX] Med 06/02/19 16:16 Ordered 17 gm PO DAILY PRN Sodium Chloride 0.65% [Tripp Nasal [place]] Med 06/02/19 16:16 Ordered 1 ml YESICA BID PRN Umeclidinium [place] [Incruse Ellipta*] Med 06/03/19 09:00 Ordered 1 puff IN DAILY Zolpidem [Ambien] Med 06/02/19 16:16 Ordered 5 mg PO BEDTIME PRN atorvaSTATin [Lipitor] Med 06/03/19 09:00 Ordered 10 mg PO DAILY guaiFENesin [Robitussin] Med 06/02/19 16:16 Ordered 100 mg PO Q4H PRN rOPINIRole [Requip] Med 06/02/19 16:13 Ordered 2 mg PO TID PRN traZODone Med 06/02/19 21:00 Ordered 50 mg PO BEDTIME Resuscitation Status Routine Resus Stat 06/02/19 16:16 Ordered Medication Orders Acetaminophen (Tylenol) 650 mg PO Q8H PRN PRN Reason: Pain (mild 1-3) Acetaminophen (Tylenol) 650 mg PO Q4H PRN PRN Reason: Pain (Mild 1-3)/fever Hydrocodone Bitart/Acetaminophen ([place]ument 325-10 Mg) 1 tab PO Q4H PRN PRN Reason: Pain (moderate 4-6) Albuterol (Proventil Hfa) gm INH Q4H PRN PRN Reason: Shortness of Breath Albuterol/Ipratropium (Duoneb 3.0-0.5 Mg/3 Ml) 3 ml INH QID JOE Ascorbic Acid (Vitamin C) 500 mg PO DAILY JOE Aspirin (Halfprin) 81 mg PO DAILY JOE Atorvastatin Calcium (Lipitor) 10 mg PO DAILY JOE Bisacodyl (Dulcolax) 5 mg PO DAILY PRN PRN Reason: Constipation Budesonide (Pulmicort) 0.5 mg INH BID JOE Furosemide (Lasix) 40 mg PO DAILY JOE Guaifenesin (Robitussin) 100 mg PO Q4H PRN PRN Reason: Cough Lidocaine (Lidoderm 5%) 700 mg TOP Q24H [facility] Melatonin (Melatonin) 3 mg PO BEDTIME PRN PRN Reason: Sleep Morphine Sulfate (Morphine) 2 mg IVPUSH Q2H PRN PRN Reason: Pain (severe 7-10) Multivitamins (Thera) 1 each PO DAILY [facility] Apixaban [Eliquis] 2 (.5 Mg Tab) 2.5 mg PO BID [facility] Non-Formulary Medication (Darbepoetin Chuy [Aranesp]) 300 mcg SQ Q7D JOE Non-Formulary Medication (Fexofenadine Hcl [Bronwyn Allergy]) 60 mg PO DAILY JOE Non-Formulary Medication (Metoprolol Succinate [Toprol Xl]) 50 mg PO DAILY JOE Non-Formulary Medication (Umeclidinium [place] [Incruse Ellipta*]) 1 puff IN DAILY [facility] Omeprazole (Omeprazole) 20 mg PO BID [facility] Ondansetron HCl (Zofran) 4 mg IVPUSH Q6H PRN PRN Reason: Nausea/Vomiting Ondansetron HCl (Zofran Odt) 4 mg PO Q6H PRN PRN Reason: nausea, able to take PO Polyethylene Glycol (Miralax) 17 gm PO DAILY PRN PRN Reason: Constipation Ropinirole HCl (Requip) 2 mg PO TID PRN PRN Reason: RLS PAIN Sodium Chloride (Tripp Nasal [place]) 1 ml YESICA BID PRN PRN Reason: Nasal Congestion Trazodone HCl (Trazodone) 50 mg PO BEDTIME JOE Zolpidem Tartrate (Ambien) 5 mg PO BEDTIME PRN PRN Reason: Sleep Assessment/Plan Comment:: 73 y/o m w PMHx COPD, HTN, myelodysplastic, chronic anemia, chronic pain syndrome, CAD w hx of VA s/p CVA A/P left carotid endarterectomy, chronic lower back pain with right radiculopathy who recently was diagnosed with lung cancer and underwent VATS of the right lower lobe and right middle lobe lobectomies on 04/26/19. He developed right-sided hydropneumothorax s/p chest tube placement. CT chest on 05/09/19 showed right middle lobe and right lower lobe consolidation , possible empyema. He received cefepime and vancomycin, then ertapenem and now on Zosyn upon discharge from hospital. He had acute encephalopathy which resolved. He is discharged from [facility] on 06/02/19 to be admitted to [facility] to continue IV Zosyn 3.375 g every 8 hours and have physical therapy and became additional therapy for strengthening things. #Pneumonia, possible empyema -According to notes from 06/01/19: MRSA screen negative, sputum culture on 05/07 no pathogens, sputum culture on 05/25 no pathogens, blood culture on 05/25 negative, sputum culture on 05/27 no pathogens, sputum fungal culture on 05/27 used not cryptococcus, and BAL cultures on 05/31 in the process -Zosyn 3.375 g every 8 hours for 2 weeks -Repeat CT at 2 weeks #Lung cancer, squamous cell carcinoma Status post VATS of the right lower lobe and right middle lobe lobectomies on 06/04 -Continued follow-up with oncology #Incidental finding of dilated biliary ducts on CT chest Ultrasound reported intrahepatic, extrahepatic, and pancreatic duct dilation. No scintigraphic evidence of choledocholithiasis. Findings are concerning for obstructing stone/mass or stricture at the level of the ampulla. Consider MRCP/ ERCP. -This needs to be addressed by his primary care provider and possibly by his oncologist. So he will need to have appointment with his primary care provider or GI #Incidental finding of right polycystic kidney on US RUQ -Follow up with primary care provider #COPD No exacerbation Continue Home bronchodilator #Atrial fibrillation Continue metoprolol and Ativan #Coronary artery disease No chest pain Continue aspirin and statin #Chronic back pain Tylenol and ibuprofen as needed lidocaine and her avoid narcotic possible due to recent acute encephalopathy #Restless leg syndrome Requip 4 mg every 4 hours as needed #GERD Continue Protonix
[2019-06-02] MEDS: Albuterol/Ipratropium 3.0-0.5 MG/3 ML Neb Soln INH SCH ×2 (16:58→20:52)
[2019-06-02] MEDS ORDERED: rOPINIRole 2 MG Tab PO PRN (17:00)
[2019-06-02] MEDS ORDERED: CALMOSEPTINE TOP PRN (17:00)
[2019-06-02] MEDS: Piperacillin/Tazobactam 3.375 GM in Sodium Chloride 0.9% 100 ML IV SCH (18:04)
[2019-06-02] MEDS: Sodium Chloride 0.9% 10 ML Syringe FLUSH PRN (18:10)
[2019-06-02] MEDS: traZODone 50 MG Tab PO SCH (20:51)
[2019-06-02] MEDS: Omeprazole 20 MG Cap.CR PO SCH (20:51)
[2019-06-02] MEDS: APIXABAN 2.5 MG PO SCH (20:51)
[2019-06-02] MEDS: Budesonide 0.5 MG/2 ML Neb Susp INH SCH (20:52)
[2019-06-02] MEDS: Ibuprofen 400 MG Tab PO PRN (23:54)
[2019-06-02] MEDS: rOPINIRole 2 MG Tab PO PRN (23:54)
[2019-06-03] MEDS: Piperacillin/Tazobactam 3.375 GM in Sodium Chloride 0.9% 100 ML IV SCH ×5 (02:00→21:36)
[2019-06-03] MEDS: rOPINIRole 2 MG Tab PO PRN ×2 (06:36→17:52)
[2019-06-03] MEDS: Albuterol/Ipratropium 3.0-0.5 MG/3 ML Neb Soln INH SCH ×4 (07:27→20:53)
[2019-06-03] MEDS: Budesonide 0.5 MG/2 ML Neb Susp INH SCH ×3 (07:28→20:53)
[2019-06-03] MEDS: Lidocaine 5% 700 MG Patch TOP SCH (08:47)
[2019-06-03] MEDS: Furosemide 40 MG Tab PO SCH (08:52)
[2019-06-03] MEDS: atorvaSTATin 10 MG Tab PO SCH (08:52)
[2019-06-03] MEDS: Multivitamins,Therapeutic Tab PO SCH (08:52)
[2019-06-03] MEDS: Omeprazole 20 MG Cap.CR PO SCH ×2 (08:52→20:53)
[2019-06-03] MEDS: Metoprolol Succinate 50 MG Tab.ER PO SCH (08:52)
[2019-06-03] MEDS: Ascorbic Acid 500 MG Tab PO SCH (08:52)
[2019-06-03] MEDS: Aspirin 81 MG Tab.EC PO SCH (08:52)
[2019-06-03] MEDS: Loratadine 10 MG Tab PO SCH (08:52)
[2019-06-03] MEDS: APIXABAN 2.5 MG PO SCH ×2 (08:54→20:51)
[2019-06-03] MEDS: Ibuprofen 400 MG Tab PO PRN (09:28)
[2019-06-03] MEDS ORDERED: Piperacillin/Tazobactam 3.375 GM in Sodium Chloride 0.9% 100 ML IV SCH (12:00)
[2019-06-03] MEDS: UMECLIDINIUM BROMIDE INH SCH (17:47)
[2019-06-03] MEDS: traZODone 50 MG Tab PO SCH (20:53)
[2019-06-03] MEDS: Sodium Chloride 0.9% 10 ML Syringe FLUSH PRN ×2 (20:58→21:35)
[2019-06-04] MEDS: rOPINIRole 2 MG Tab PO PRN ×3 (03:31→18:02)
[2019-06-04] MEDS: Sodium Chloride 0.9% 10 ML Syringe FLUSH PRN ×5 (05:34→22:12)
[2019-06-04] MEDS: Piperacillin/Tazobactam 3.375 GM in Sodium Chloride 0.9% 100 ML IV SCH ×3 (05:35→21:33)
[2019-06-04] MEDS: Albuterol/Ipratropium 3.0-0.5 MG/3 ML Neb Soln INH SCH ×4 (07:46→21:42)
[2019-06-04] MEDS: UMECLIDINIUM BROMIDE INH SCH (07:57)
[2019-06-04] MEDS: Aspirin 81 MG Tab.EC PO SCH (08:50)
[2019-06-04] MEDS: Furosemide 40 MG Tab PO SCH (08:51)
[2019-06-04] MEDS: Ascorbic Acid 500 MG Tab PO SCH (08:51)
[2019-06-04] MEDS: Metoprolol Succinate 50 MG Tab.ER PO SCH (08:51)
[2019-06-04] MEDS: Loratadine 10 MG Tab PO SCH (08:51)
[2019-06-04] MEDS: Omeprazole 20 MG Cap.CR PO SCH ×2 (08:51→21:23)
[2019-06-04] MEDS: Multivitamins,Therapeutic Tab PO SCH (08:52)
[2019-06-04] MEDS: Ibuprofen 400 MG Tab PO PRN ×2 (08:52→16:50)
[2019-06-04] MEDS: atorvaSTATin 10 MG Tab PO SCH (08:52)
[2019-06-04] MEDS: APIXABAN 2.5 MG PO SCH ×2 (08:53→21:25)
[2019-06-04] MEDS: Lidocaine 5% 700 MG Patch TOP SCH (08:54)
[2019-06-04] MEDS: Budesonide 0.5 MG/2 ML Neb Susp INH SCH ×2 (11:29→21:52)
[2019-06-04] MEDS: Acetaminophen 325 MG Tab PO PRN (20:00)
[2019-06-04] MEDS: traZODone 50 MG Tab PO SCH (21:24)
[2019-06-05] MEDS: rOPINIRole 2 MG Tab PO PRN ×3 (02:24→20:44)
[2019-06-05] MEDS: Piperacillin/Tazobactam 3.375 GM in Sodium Chloride 0.9% 100 ML IV SCH ×3 (05:48→22:15)
[2019-06-05] MEDS: Sodium Chloride 0.9% 10 ML Syringe FLUSH PRN ×3 (05:48→14:17)
[2019-06-05] MEDS: Ibuprofen 400 MG Tab PO PRN ×2 (06:17→15:47)
[2019-06-05] MEDS: Albuterol/Ipratropium 3.0-0.5 MG/3 ML Neb Soln INH SCH ×4 (07:21→20:50)
[2019-06-05] MEDS: Budesonide 0.5 MG/2 ML Neb Susp INH SCH ×3 (07:21→20:50)
[2019-06-05] MEDS: UMECLIDINIUM BROMIDE INH SCH (08:26)
[2019-06-05] MEDS: APIXABAN 2.5 MG PO SCH ×2 (08:27→20:45)
[2019-06-05] MEDS: Ascorbic Acid 500 MG Tab PO SCH (08:29)
[2019-06-05] MEDS: Loratadine 10 MG Tab PO SCH (08:29)
[2019-06-05] MEDS: Omeprazole 20 MG Cap.CR PO SCH ×2 (08:29→20:46)
[2019-06-05] MEDS: Aspirin 81 MG Tab.EC PO SCH (08:29)
[2019-06-05] MEDS: Metoprolol Succinate 50 MG Tab.ER PO SCH (08:30)
[2019-06-05] MEDS: Multivitamins,Therapeutic Tab PO SCH (08:30)
[2019-06-05] MEDS: Furosemide 40 MG Tab PO SCH (08:31)
[2019-06-05] MEDS: atorvaSTATin 10 MG Tab PO SCH (08:31)
[2019-06-05] MEDS: Lidocaine 5% 700 MG Patch TOP SCH (08:33)
[2019-06-05] MEDS: traZODone 50 MG Tab PO SCH (20:45)
[2019-06-05] MEDS: Acetaminophen 325 MG Tab PO PRN (20:46)
[2019-06-06] MEDS: Ibuprofen 400 MG Tab PO PRN ×3 (00:22→18:21)
[2019-06-06] MEDS: rOPINIRole 2 MG Tab PO PRN ×5 (02:29→22:54)
[2019-06-06] MEDS: Acetaminophen 325 MG Tab PO PRN ×3 (02:34→21:49)
[2019-06-06] MEDS: Piperacillin/Tazobactam 3.375 GM in Sodium Chloride 0.9% 100 ML IV SCH ×3 (06:08→21:38)
[2019-06-06] MEDS: Albuterol/Ipratropium 3.0-0.5 MG/3 ML Neb Soln INH SCH ×4 (07:19→21:38)
[2019-06-06] MEDS: Budesonide 0.5 MG/2 ML Neb Susp INH SCH ×3 (07:21→21:38)
[2019-06-06] MEDS: atorvaSTATin 10 MG Tab PO SCH (09:05)
[2019-06-06] MEDS: Omeprazole 20 MG Cap.CR PO SCH ×2 (09:05→21:35)
[2019-06-06] MEDS: Furosemide 40 MG Tab PO SCH (09:05)
[2019-06-06] MEDS: Metoprolol Succinate 50 MG Tab.ER PO SCH (09:06)
[2019-06-06] MEDS: Multivitamins,Therapeutic Tab PO SCH (09:07)
[2019-06-06] MEDS: Ascorbic Acid 500 MG Tab PO SCH (09:08)
[2019-06-06] MEDS: Aspirin 81 MG Tab.EC PO SCH (09:08)
[2019-06-06] MEDS: Loratadine 10 MG Tab PO SCH (09:08)
[2019-06-06] MEDS: UMECLIDINIUM BROMIDE INH SCH (09:09)
[2019-06-06] MEDS: APIXABAN 2.5 MG PO SCH ×2 (09:09→21:37)
[2019-06-06] MEDS: Lidocaine 5% 700 MG Patch TOP SCH (09:10)
[2019-06-06] MEDS: Sodium Chloride 0.9% 10 ML Syringe FLUSH PRN ×2 (13:36→14:19)
[2019-06-06] MEDS: traZODone 50 MG Tab PO SCH (21:35)
[2019-06-07] MEDS: Ibuprofen 400 MG Tab PO PRN ×3 (04:06→21:15)
[2019-06-07] MEDS: rOPINIRole 2 MG Tab PO PRN ×4 (04:08→21:10)
[2019-06-07] MEDS: Piperacillin/Tazobactam 3.375 GM in Sodium Chloride 0.9% 100 ML IV SCH ×3 (05:48→21:26)
[2019-06-07] MEDS: Albuterol/Ipratropium 3.0-0.5 MG/3 ML Neb Soln INH SCH ×4 (07:27→21:10)
[2019-06-07] MEDS: Budesonide 0.5 MG/2 ML Neb Susp INH SCH ×3 (07:31→21:10)
[2019-06-07] MEDS: Aspirin 81 MG Tab.EC PO SCH (08:33)
[2019-06-07] MEDS: Loratadine 10 MG Tab PO SCH (08:33)
[2019-06-07] MEDS: Ascorbic Acid 500 MG Tab PO SCH (08:33)
[2019-06-07] MEDS: Omeprazole 20 MG Cap.CR PO SCH ×2 (08:33→21:10)
[2019-06-07] MEDS: Furosemide 40 MG Tab PO SCH (08:33)
[2019-06-07] MEDS: Metoprolol Succinate 50 MG Tab.ER PO SCH (08:33)
[2019-06-07] MEDS: APIXABAN 2.5 MG PO SCH ×2 (08:34→21:15)
[2019-06-07] MEDS: atorvaSTATin 10 MG Tab PO SCH (08:34)
[2019-06-07] MEDS: Multivitamins,Therapeutic Tab PO SCH (08:34)
[2019-06-07] MEDS: Acetaminophen 325 MG Tab PO PRN (08:37)
[2019-06-07] MEDS: Lidocaine 5% 700 MG Patch TOP SCH (08:39)
[2019-06-07] MEDS: UMECLIDINIUM BROMIDE INH SCH (09:40)
[2019-06-07] MEDS: Sodium Chloride 0.9% 10 ML Syringe FLUSH PRN ×2 (14:01→14:38)
[2019-06-07] MEDS: traZODone 50 MG Tab PO SCH (21:10)
[2019-06-08] MEDS: rOPINIRole 2 MG Tab PO PRN ×4 (01:49→21:55)
[2019-06-08] MEDS: Acetaminophen 325 MG Tab PO PRN ×2 (01:50→11:37)
[2019-06-08] MEDS: Piperacillin/Tazobactam 3.375 GM in Sodium Chloride 0.9% 100 ML IV SCH ×3 (06:19→22:03)
[2019-06-08] MEDS: Albuterol/Ipratropium 3.0-0.5 MG/3 ML Neb Soln INH SCH ×4 (08:04→21:59)
[2019-06-08] MEDS: Budesonide 0.5 MG/2 ML Neb Susp INH SCH ×2 (08:07→21:59)
[2019-06-08] MEDS: Ascorbic Acid 500 MG Tab PO SCH (08:38)
[2019-06-08] MEDS: Aspirin 81 MG Tab.EC PO SCH (08:39)
[2019-06-08] MEDS: atorvaSTATin 10 MG Tab PO SCH (08:39)
[2019-06-08] MEDS: Omeprazole 20 MG Cap.CR PO SCH ×2 (08:39→21:57)
[2019-06-08] MEDS: Multivitamins,Therapeutic Tab PO SCH (08:39)
[2019-06-08] MEDS: Metoprolol Succinate 50 MG Tab.ER PO SCH (08:40)
[2019-06-08] MEDS: Loratadine 10 MG Tab PO SCH (08:40)
[2019-06-08] MEDS: Lidocaine 5% 700 MG Patch TOP SCH (08:40)
[2019-06-08] MEDS: Furosemide 40 MG Tab PO SCH (08:40)
[2019-06-08] MEDS: APIXABAN 2.5 MG PO SCH ×2 (08:41→21:59)
[2019-06-08] MEDS: UMECLIDINIUM BROMIDE INH SCH (08:42)
[2019-06-08] MEDS: Ibuprofen 400 MG Tab PO PRN ×2 (08:54→21:55)
[2019-06-08] MEDS: Sodium Chloride 0.9% 10 ML Syringe FLUSH PRN (13:59)
[2019-06-08] MEDS: traZODone 50 MG Tab PO SCH (21:57)
[2019-06-09] MEDS: rOPINIRole 2 MG Tab PO PRN ×2 (02:38→08:38)
[2019-06-09] MEDS: Acetaminophen 325 MG Tab PO PRN (02:39)
[2019-06-09] MEDS: Piperacillin/Tazobactam 3.375 GM in Sodium Chloride 0.9% 100 ML IV SCH ×3 (05:55→21:50)
[2019-06-09] MEDS: Albuterol/Ipratropium 3.0-0.5 MG/3 ML Neb Soln INH SCH ×4 (07:30→21:50)
[2019-06-09] MEDS: Budesonide 0.5 MG/2 ML Neb Susp INH SCH ×4 (07:31→17:15)
[2019-06-09] MEDS: UMECLIDINIUM BROMIDE INH SCH (08:28)
[2019-06-09] MEDS: APIXABAN 2.5 MG PO SCH ×2 (08:28→21:47)
[2019-06-09] MEDS: Metoprolol Succinate 50 MG Tab.ER PO SCH (08:29)
[2019-06-09] MEDS: Multivitamins,Therapeutic Tab PO SCH (08:29)
[2019-06-09] MEDS: Ascorbic Acid 500 MG Tab PO SCH (08:29)
[2019-06-09] MEDS: Loratadine 10 MG Tab PO SCH (08:29)
[2019-06-09] MEDS: Omeprazole 20 MG Cap.CR PO SCH ×2 (08:29→21:43)
[2019-06-09] MEDS: atorvaSTATin 10 MG Tab PO SCH (08:30)
[2019-06-09] MEDS: Aspirin 81 MG Tab.EC PO SCH (08:30)
[2019-06-09] MEDS: Lidocaine 5% 700 MG Patch TOP SCH (08:30)
[2019-06-09] MEDS: Furosemide 40 MG Tab PO SCH (08:30)
[2019-06-09] MEDS: Ibuprofen 400 MG Tab PO PRN ×2 (08:39→21:43)
[2019-06-09] MEDS: Acetaminophen 500 MG Tab PO SCH ×2 (13:33→21:43)
[2019-06-09] MEDS: rOPINIRole 2 MG Tab PO SCH ×5 (13:35→21:43)
[2019-06-09] MEDS: traZODone 50 MG Tab PO SCH (21:43)
[2019-06-10] MEDS: rOPINIRole 2 MG Tab PO SCH ×6 (02:14→21:09)
[2019-06-10] MEDS: Piperacillin/Tazobactam 3.375 GM in Sodium Chloride 0.9% 100 ML IV SCH ×3 (06:10→22:02)
[2019-06-10] MEDS: Ibuprofen 400 MG Tab PO PRN ×2 (06:41→14:22)
[2019-06-10] MEDS: Albuterol/Ipratropium 3.0-0.5 MG/3 ML Neb Soln INH SCH ×4 (07:34→21:09)
[2019-06-10] MEDS: Budesonide 0.5 MG/2 ML Neb Susp INH SCH ×2 (07:34→17:02)
[2019-06-10] MEDS: Loratadine 10 MG Tab PO SCH (08:38)
[2019-06-10] MEDS: atorvaSTATin 10 MG Tab PO SCH (08:39)
[2019-06-10] MEDS: Multivitamins,Therapeutic Tab PO SCH (08:39)
[2019-06-10] MEDS: Ascorbic Acid 500 MG Tab PO SCH (08:39)
[2019-06-10] MEDS: Metoprolol Succinate 50 MG Tab.ER PO SCH (08:39)
[2019-06-10] MEDS: Omeprazole 20 MG Cap.CR PO SCH ×2 (08:39→21:07)
[2019-06-10] MEDS: Furosemide 40 MG Tab PO SCH (08:39)
[2019-06-10] MEDS: Aspirin 81 MG Tab.EC PO SCH (08:39)
[2019-06-10] MEDS: Acetaminophen 500 MG Tab PO SCH ×2 (08:40→20:13)
[2019-06-10] MEDS: APIXABAN 2.5 MG PO SCH ×2 (08:41→21:08)
[2019-06-10] MEDS: UMECLIDINIUM BROMIDE INH SCH (08:41)
[2019-06-10] MEDS: Lidocaine 5% 700 MG Patch TOP SCH ×2 (08:42→12:24)
[2019-06-10] MEDS: Sodium Chloride 0.9% 10 ML Syringe FLUSH PRN ×2 (14:23→22:01)
--- NOTE | 2019-06-10 14:56 | PN ---
DATE: 06/10/2019 HISTORY OF PRESENT ILLNESS: Mr. King Montanez is a 73-year-old male with a medical history significant for hypertension, hyperlipidemia, chronic obstructive pulmonary disease, myelodysplastic syndrome, chronic anemia, chronic pain syndrome, coronary artery disease, history of cerebrovascular accident in the past, status post left carotid endarterectomy, chronic low back pain, history of lung cancer. Underwent VATS of the right lower lobe and right middle lobe with lobectomies on 04/26/2019. Pathology reported squamous cell carcinoma with negative left nodes and negative fluid cytology. The patient had complications with hydropneumothorax requiring chest tubes in the past. He is currently admitted to the swing bed for continued physical therapy and occupational therapy. For the last 24 hours, the patient denies any ongoing chest pain. Complains of weakness and tiredness. Continues to be on nasal cannula oxygen. Denies any chest pains. No abdominal pain. No nausea. No vomiting. No diarrhea. REVIEW OF SYSTEMS: Cardiovascular, respiratory, gastrointestinal, neurology, constitutional were all evaluated. PHYSICAL EXAMINATION: Vitals: Temperature of 98.7, pulse of 82, blood pressure 109/78, respiratory rate of 20, saturating at 97% on 2 L of oxygen. General Appearance: The patient is well oriented to time, place, and person. Follows commands spontaneously. Cardiovascular System: S1, S2 heard with normal intensity. No gallops. Respiratory System: Clear to auscultation bilaterally. No wheeze. No crepitations. Abdomen: Soft. Bowel sounds positive. Nontender. No rigidity. Extremities: No edema of bilateral lower extremities. Neurological: No gross focal neurological deficits. MEDICATIONS: Reviewed. Continue with Tylenol 650 every 4 hours as needed for pain, DuoNeb 3 mL 4 times a day, aspirin 81 mg daily, Lipitor 10 mg daily, Pulmicort 0.5 mg inhalation twice a day, Lasix 40 mg daily, Motrin 400 mg every 8 hours as needed for pain, Lidoderm transdermal patch, Toprol-XL 50 mg daily, Eliquis 2.5 mg twice a day, omeprazole 20 mg twice a day, Requip 4 mg every 4 hours, trazodone 50 mg at bedtime. LABORATORY DATA: Reviewed. Hemoglobin 8.3, hematocrit 27.3. ASSESSMENT: 1. Anemia secondary to possible myelodysplastic syndrome. 2. Recent diagnosis of squamous cell lung cancer, status post resection and video-assisted thoracoscopic surgery procedure. 3. Recent diagnosis of pneumonia and empyema. 4. Generalized debility requiring physical therapy and occupational therapy. 5. Chronic obstructive pulmonary disease. 6. Atrial fibrillation. 7. Coronary artery disease. 8. Chronic pain syndrome. 9. Restless legs syndrome. 10.Gastroesophageal reflux disease. PLAN: 1. Generalized debility. The patient is undergoing physical therapy and occupational therapy while in the hospital. Continue the same. 2. Hypertension. The patient's blood pressure seems to be in acceptable range. Continue with current antihypertensive medication. 3. Atrial fibrillation. The patient has been on anticoagulation with Eliquis. Continue the same. His rate seems to be well controlled. Continue with the beta kayla. 4. Chronic pain syndrome. The patient has been on chronic opioid pain medications. Continue the same. 5. Chronic obstructive pulmonary disease, remains stable. Continue with nebulizer treatment and inhalation treatment. The patient has chronic hypoxia requiring nasal cannula oxygen. Continue the same. 6. Anemia. The patient's hemoglobin was down to 7.6 and 8. The patient is symptomatic with increasing weakness and tiredness, so I recommended for a blood transfusion. The patient is agreeable. Informed consent is obtained from the patient after explaining the risks, benefits, and complications of blood transfusion. We will transfuse 1 unit of packed red blood cells, leukoreduced and irradiated, given his history of myelodysplastic syndrome and squamous cell cancer. 7. Gastroesophageal reflux disease. Continue with the omeprazole. 8. Restless legs syndrome. The patient is requesting for Requip to be scheduled. He will be scheduled to get every 4 hours. 9. DVT prophylaxis. The patient is currently on Eliquis. Continue the same. 10.Continue with physical therapy and occupational therapy while in the swing bed. [facility] /[id number]
[2019-06-10] MEDS: traZODone 50 MG Tab PO SCH (21:07)
[2019-06-11] MEDS: rOPINIRole 2 MG Tab PO SCH ×6 (01:30→22:11)
[2019-06-11] MEDS: Sodium Chloride 0.9% 10 ML Syringe FLUSH PRN ×4 (06:24→22:06)
[2019-06-11] MEDS: Piperacillin/Tazobactam 3.375 GM in Sodium Chloride 0.9% 100 ML IV SCH ×3 (06:25→22:08)
[2019-06-11] MEDS: Albuterol/Ipratropium 3.0-0.5 MG/3 ML Neb Soln INH SCH ×4 (07:07→22:15)
[2019-06-11] MEDS: Budesonide 0.5 MG/2 ML Neb Susp INH SCH ×2 (07:07→17:52)
[2019-06-11] MEDS: UMECLIDINIUM BROMIDE INH SCH (07:28)
[2019-06-11] MEDS: APIXABAN 2.5 MG PO SCH ×2 (09:14→22:19)
[2019-06-11] MEDS: Lidocaine 5% 700 MG Patch TOP SCH (09:14)
[2019-06-11] MEDS: Omeprazole 20 MG Cap.CR PO SCH ×2 (09:14→22:12)
[2019-06-11] MEDS: Ascorbic Acid 500 MG Tab PO SCH (09:14)
[2019-06-11] MEDS: Multivitamins,Therapeutic Tab PO SCH (09:14)
[2019-06-11] MEDS: Acetaminophen 500 MG Tab PO SCH ×2 (09:15→22:12)
[2019-06-11] MEDS: Ibuprofen 400 MG Tab PO PRN (09:15)
[2019-06-11] MEDS: Aspirin 81 MG Tab.EC PO SCH (09:16)
[2019-06-11] MEDS: Loratadine 10 MG Tab PO SCH (09:16)
[2019-06-11] MEDS: Furosemide 40 MG Tab PO SCH (09:16)
[2019-06-11] MEDS: Metoprolol Succinate 50 MG Tab.ER PO SCH (09:16)
[2019-06-11] MEDS: atorvaSTATin 10 MG Tab PO SCH (09:16)
[2019-06-11] MEDS: traZODone 50 MG Tab PO SCH (22:11)
[2019-06-12] MEDS: rOPINIRole 2 MG Tab PO SCH ×6 (02:04→22:35)
[2019-06-12] MEDS: Piperacillin/Tazobactam 3.375 GM in Sodium Chloride 0.9% 100 ML IV SCH ×3 (05:34→22:28)
[2019-06-12] MEDS: Acetaminophen 325 MG Tab PO PRN ×2 (05:43→14:02)
[2019-06-12] MEDS: Albuterol/Ipratropium 3.0-0.5 MG/3 ML Neb Soln INH SCH ×4 (07:05→22:24)
[2019-06-12] MEDS: Budesonide 0.5 MG/2 ML Neb Susp INH SCH ×2 (07:05→17:03)
[2019-06-12] MEDS: UMECLIDINIUM BROMIDE INH SCH (08:38)
[2019-06-12] MEDS: APIXABAN 2.5 MG PO SCH ×2 (08:39→22:22)
[2019-06-12] MEDS: Omeprazole 20 MG Cap.CR PO SCH ×2 (08:39→22:22)
[2019-06-12] MEDS: Ascorbic Acid 500 MG Tab PO SCH (08:39)
[2019-06-12] MEDS: Loratadine 10 MG Tab PO SCH (08:40)
[2019-06-12] MEDS: atorvaSTATin 10 MG Tab PO SCH (08:40)
[2019-06-12] MEDS: Multivitamins,Therapeutic Tab PO SCH (08:40)
[2019-06-12] MEDS: Furosemide 40 MG Tab PO SCH (08:40)
[2019-06-12] MEDS: Aspirin 81 MG Tab.EC PO SCH (08:40)
[2019-06-12] MEDS: Metoprolol Succinate 50 MG Tab.ER PO SCH (08:41)
[2019-06-12] MEDS: Ibuprofen 400 MG Tab PO PRN ×2 (08:41→22:57)
[2019-06-12] MEDS: Acetaminophen 500 MG Tab PO SCH ×2 (08:42→22:23)
[2019-06-12] MEDS: Lidocaine 5% 700 MG Patch TOP SCH ×2 (08:43→11:30)
[2019-06-12] MEDS: Sodium Chloride 0.9% 10 ML Syringe FLUSH PRN ×3 (13:56→23:06)
[2019-06-12] MEDS: traZODone 50 MG Tab PO SCH (22:23)
[2019-06-13] MEDS: rOPINIRole 2 MG Tab PO SCH ×6 (02:10→21:53)
[2019-06-13] MEDS: Piperacillin/Tazobactam 3.375 GM in Sodium Chloride 0.9% 100 ML IV SCH ×3 (06:36→21:57)
[2019-06-13] MEDS: Sodium Chloride 0.9% 10 ML Syringe FLUSH PRN (06:36)
[2019-06-13] MEDS: Budesonide 0.5 MG/2 ML Neb Susp INH SCH ×2 (07:18→17:36)
[2019-06-13] MEDS: Albuterol/Ipratropium 3.0-0.5 MG/3 ML Neb Soln INH SCH ×4 (07:18→20:55)
[2019-06-13] MEDS: Ascorbic Acid 500 MG Tab PO SCH (08:34)
[2019-06-13] MEDS: Acetaminophen 500 MG Tab PO SCH ×2 (08:34→20:51)
[2019-06-13] MEDS: atorvaSTATin 10 MG Tab PO SCH (08:34)
[2019-06-13] MEDS: Loratadine 10 MG Tab PO SCH (08:34)
[2019-06-13] MEDS: Omeprazole 20 MG Cap.CR PO SCH ×2 (08:34→20:53)
[2019-06-13] MEDS: Aspirin 81 MG Tab.EC PO SCH (08:35)
[2019-06-13] MEDS: Furosemide 40 MG Tab PO SCH (08:35)
[2019-06-13] MEDS: APIXABAN 2.5 MG PO SCH ×2 (08:35→20:53)
[2019-06-13] MEDS: Multivitamins,Therapeutic Tab PO SCH (08:35)
[2019-06-13] MEDS: Metoprolol Succinate 50 MG Tab.ER PO SCH (08:36)
[2019-06-13] MEDS: Lidocaine 5% 700 MG Patch TOP SCH (08:36)
[2019-06-13] MEDS: UMECLIDINIUM BROMIDE INH SCH (08:36)
[2019-06-13 12:42] LABS: ANION GAP 15.1; CHLORIDE,CL 99 mmol/L (101-111); SODIUM,NA 138 mmol/L (135-145)
[2019-06-13] MEDS: Ibuprofen 400 MG Tab PO PRN (17:29)
[2019-06-13] MEDS: traZODone 50 MG Tab PO SCH (20:52)
[2019-06-14] MEDS: Ibuprofen 400 MG Tab PO PRN ×3 (01:54→21:41)
[2019-06-14] MEDS: rOPINIRole 2 MG Tab PO SCH ×6 (01:55→21:36)
[2019-06-14] MEDS: Piperacillin/Tazobactam 3.375 GM in Sodium Chloride 0.9% 100 ML IV SCH ×3 (05:24→21:49)
[2019-06-14] MEDS: Albuterol/Ipratropium 3.0-0.5 MG/3 ML Neb Soln INH SCH ×4 (07:13→21:39)
[2019-06-14] MEDS: Budesonide 0.5 MG/2 ML Neb Susp INH SCH ×2 (07:16→18:05)
[2019-06-14] MEDS ORDERED: Iopamidol 612 MG/ML 75 ML Bottle IVPUSH ONE (08:30)
[2019-06-14] MEDS: Furosemide 40 MG Tab PO SCH (09:02)
[2019-06-14] MEDS: Multivitamins,Therapeutic Tab PO SCH (09:02)
[2019-06-14] MEDS: Metoprolol Succinate 50 MG Tab.ER PO SCH (09:02)
[2019-06-14] MEDS: Omeprazole 20 MG Cap.CR PO SCH ×2 (09:02→21:36)
[2019-06-14] MEDS: atorvaSTATin 10 MG Tab PO SCH (09:02)
[2019-06-14] MEDS: Aspirin 81 MG Tab.EC PO SCH (09:02)
[2019-06-14] MEDS: Acetaminophen 500 MG Tab PO SCH ×2 (09:02→21:36)
[2019-06-14] MEDS: Ascorbic Acid 500 MG Tab PO SCH (09:02)
[2019-06-14] MEDS: Loratadine 10 MG Tab PO SCH (09:02)
[2019-06-14] MEDS: APIXABAN 2.5 MG PO SCH ×2 (09:03→21:35)
[2019-06-14] MEDS: Lidocaine 5% 700 MG Patch TOP SCH (09:03)
[2019-06-14] MEDS: UMECLIDINIUM BROMIDE INH SCH (09:04)
--- NOTE | 2019-06-14 13:07 | CT ---
EXAMINATION: Chest w Cont SEX: Male AGE: 73 years CLINICAL HISTORY: 73-year-old male with history of lung cancer, chronic right lower lobe pneumonia and empyema lung. Volume loss and extensive lower lobe infection right lung initially reported 20 May 2019 (confirmed chest CT 23 May 2019) this patient with bullous emphysema. Follow-up evaluation please. SCAN TECHNIQUE: Volume acquisition of data from the chest (bony thorax, lungs and mediastinum) obtained during the intravenous administration of 75 cc nonionic Isovue contrast (3 cc/s via injector) while the patient was lying supine on the Siemens multislice scanner [facility]. All data archived in the PACS system for storage, reformatting axial/sagittal/coronal planes and study (lung/mediastinal windows). INTERPRETATION: Abnormal. 1. Reproducible, extensive pneumonic like consolidation with underlying air bronchograms involving most of right lower lobe. 2. Large 4.8 cm x 2.6 cm oval collection of fluid with thick walled "rind" and central air-fluid level located posteromedially, costophrenic pleural space, on the right. NOTE: this, present on 23 May 2019 exam, appears relatively smaller. 3. Cystic/bullous emphysematous changes right upper and the entire left lung. 4. No new mass or significant hilar lymphadenopathy (subcarinal middle mediastinal lymph nodes unchanged). 5. Normal cardiac silhouette without cephalization of vascular flow or alveolar edema. No pericardial effusion. 6. No abnormal lobar consolidation (infiltrate or atelectasis) emphysematous left lung. 7. Gallbladder distended RUQ. Benign-appearing cyst upper pole both kidneys. Liver, stomach and spleen unremarkable. 8. Old compression fracture L1 vertebral body and multilevel disc disease/arthritis thoracic spine. Densely calcified "cast" ectatic but normal caliber thoracic and upper abdominal aorta. CONCLUSION: Relative radiographic improvement, i.e., generalized contraction of the pneumonic consolidation RLL and the loculated pleural fluid collection (empyema?) posteromedially appears slightly smaller than on 23 May 2019 exam. No new lung mass or other focal lobar consolidation. COPD. Renal cysts and usual signs of senescence.
[2019-06-14] MEDS: Sodium Chloride 0.9% 10 ML Syringe FLUSH PRN ×3 (14:04→22:30)
[2019-06-14] MEDS: Acetaminophen 325 MG Tab PO PRN (14:12)
[2019-06-14] MEDS: traZODone 50 MG Tab PO SCH (21:36)
[2019-06-15] MEDS: rOPINIRole 2 MG Tab PO SCH ×6 (01:54→21:50)
[2019-06-15] MEDS: Sodium Chloride 0.9% 10 ML Syringe FLUSH PRN ×4 (05:28→22:40)
[2019-06-15] MEDS: Piperacillin/Tazobactam 3.375 GM in Sodium Chloride 0.9% 100 ML IV SCH ×3 (05:31→22:00)
[2019-06-15 07:18] LABS: ANION GAP 14.3; CHLORIDE,CL 101 mmol/L (101-111); SODIUM,NA 137 mmol/L (135-145)
[2019-06-15] MEDS: Albuterol/Ipratropium 3.0-0.5 MG/3 ML Neb Soln INH SCH ×4 (07:18→21:50)
[2019-06-15] MEDS: Budesonide 0.5 MG/2 ML Neb Susp INH SCH ×3 (07:18→18:14)
[2019-06-15] MEDS: Acetaminophen 500 MG Tab PO SCH ×2 (08:20→21:50)
[2019-06-15] MEDS: Aspirin 81 MG Tab.EC PO SCH (08:21)
[2019-06-15] MEDS: atorvaSTATin 10 MG Tab PO SCH (08:21)
[2019-06-15] MEDS: Loratadine 10 MG Tab PO SCH (08:21)
[2019-06-15] MEDS: Multivitamins,Therapeutic Tab PO SCH (08:21)
[2019-06-15] MEDS: Omeprazole 20 MG Cap.CR PO SCH ×2 (08:21→21:49)
[2019-06-15] MEDS: Furosemide 40 MG Tab PO SCH (08:21)
[2019-06-15] MEDS: Ascorbic Acid 500 MG Tab PO SCH (08:21)
[2019-06-15] MEDS: Metoprolol Succinate 50 MG Tab.ER PO SCH (08:22)
[2019-06-15] MEDS: Lidocaine 5% 700 MG Patch TOP SCH (08:23)
[2019-06-15] MEDS: APIXABAN 2.5 MG PO SCH ×2 (08:24→21:52)
[2019-06-15] MEDS: UMECLIDINIUM BROMIDE INH SCH (08:24)
[2019-06-15] MEDS: Ibuprofen 400 MG Tab PO PRN (14:08)
[2019-06-15] MEDS: traZODone 50 MG Tab PO SCH (21:49)
[2019-06-16] MEDS: rOPINIRole 2 MG Tab PO SCH ×6 (02:10→21:45)
[2019-06-16] MEDS: Sodium Chloride 0.9% 10 ML Syringe FLUSH PRN ×4 (05:36→21:46)
[2019-06-16] MEDS: Piperacillin/Tazobactam 3.375 GM in Sodium Chloride 0.9% 100 ML IV SCH ×4 (05:36→21:46)
[2019-06-16 07:00] LABS: ANION GAP 14.5; CHLORIDE,CL 101 mmol/L (101-111); SODIUM,NA 137 mmol/L (135-145)
[2019-06-16] MEDS: Albuterol/Ipratropium 3.0-0.5 MG/3 ML Neb Soln INH SCH ×4 (07:25→22:01)
[2019-06-16] MEDS: Budesonide 0.5 MG/2 ML Neb Susp INH SCH ×2 (07:25→17:38)
[2019-06-16] MEDS: Lidocaine 5% 700 MG Patch TOP SCH (09:42)
[2019-06-16] MEDS: Acetaminophen 500 MG Tab PO SCH ×2 (09:43→20:59)
[2019-06-16] MEDS: Furosemide 40 MG Tab PO SCH (09:46)
[2019-06-16] MEDS: Ascorbic Acid 500 MG Tab PO SCH (09:47)
[2019-06-16] MEDS: Loratadine 10 MG Tab PO SCH (09:47)
[2019-06-16] MEDS: Metoprolol Succinate 50 MG Tab.ER PO SCH (09:48)
[2019-06-16] MEDS: Multivitamins,Therapeutic Tab PO SCH (09:49)
[2019-06-16] MEDS: atorvaSTATin 10 MG Tab PO SCH (09:49)
[2019-06-16] MEDS: Aspirin 81 MG Tab.EC PO SCH (09:50)
[2019-06-16] MEDS: UMECLIDINIUM BROMIDE INH SCH (09:50)
[2019-06-16] MEDS: Omeprazole 20 MG Cap.CR PO SCH ×2 (09:50→20:58)
[2019-06-16] MEDS: APIXABAN 2.5 MG PO SCH ×2 (09:51→21:00)
[2019-06-16] MEDS ORDERED: Barium Sulfate w/v 2.1% Oral Susp 450 ML Bottle PO ONE ×2 (12:30→13:30)
[2019-06-16] MEDS ORDERED: Iopamidol 612 MG/ML 75 ML Bottle IVPUSH ONE (14:14)
--- NOTE | 2019-06-16 17:00 | CT ---
EXAMINATION: Abdomen Pelvis w Cont SEX: Male AGE: 73 years CLINICAL HISTORY: Hypertensive 128 pound male "ex-smoker" with a history of right lower lobe cancer, pneumonia, empyema, bullous emphysema, and now ABNORMAL MRCP ("hepatosplenomegaly, renal cysts, and dilatation pancreatic/biliary ducts"). Scan technique: Volume acquisition of data from the abdomen (3 phase) obtained after oral ingestion 2 bottles of Redicat barium and before/during/after intravenous administration 75 cc nonionic Isovue 4 contrast (4 cc/s via injector) while the patient was lying supine on the Siemens multi slice scanner [place], [place]. All data archived in the PACS system for storage, reformatting axial/sagittal/coronal planes and study. Interpretation: Abnormal. 1. *Distended gallbladder RUQ (no calcified stones); abnormal DILATATION of the intrahepatic, extrahepatic (common bile duct measures 15 mm) and major pancreatic (10 mm diameter) ducts. 2. No discrete calcified intraluminal stones or abnormal soft tissue mass identified in the immediate region ampulla of Vater.?? Stricture? Klatskin's choledocho carcinoma or neoplasm? Metastasis? Recommend ERCP. 3. Hepatic splenomegaly. No cystic or solid parenchymal mass lesion i.e. no obvious liver metastasis. Atrophy of the pancreas without discrete mass. No peripancreatic inflammatory "dirty" peritoneal fat, phlegmon, abscess or ascites. 4. Asymmetric dense pneumonic consolidation right lower lobe (air bronchograms) with adjacent phlegmon CP sulcus. 5. Atheromatous calcifications normal caliber lower thoracic and upper abdominal aorta. Scoliosis, L1 compression fracture, multilevel disc disease and hypertrophic arthritic changes spine. No pathologic skeletal lesions, acute fracture or dislocation. 6. Multiple benign cyst both kidneys. CONCLUSION: High-grade obstruction distal common bile duct and major pancreatic duct near the ampulla Vater. Etiology? Suggest ultrasound gallbladder may prove helpful i.e. tiny stones. Recommend ERCP. Abnormal right lung base. Usual signs of senescence. Multiple renal cysts. Old L1 compression fracture. Disc disease.
[2019-06-16] MEDS: traZODone 50 MG Tab PO SCH (20:58)
[2019-06-17] MEDS: rOPINIRole 2 MG Tab PO SCH ×3 (02:00→09:14)
[2019-06-17] MEDS: Sodium Chloride 0.9% 10 ML Syringe FLUSH PRN (05:55)
[2019-06-17] MEDS: Piperacillin/Tazobactam 3.375 GM in Sodium Chloride 0.9% 100 ML IV SCH (05:55)
[2019-06-17] MEDS: Albuterol/Ipratropium 3.0-0.5 MG/3 ML Neb Soln INH SCH (07:22)
[2019-06-17] MEDS: Budesonide 0.5 MG/2 ML Neb Susp INH SCH (07:23)
[2019-06-17] MEDS: Multivitamins,Therapeutic Tab PO SCH (09:13)
[2019-06-17] MEDS: Loratadine 10 MG Tab PO SCH (09:13)
[2019-06-17] MEDS: Acetaminophen 500 MG Tab PO SCH (09:14)
[2019-06-17] MEDS: Ascorbic Acid 500 MG Tab PO SCH (09:14)
[2019-06-17] MEDS: Omeprazole 20 MG Cap.CR PO SCH (09:14)
[2019-06-17] MEDS: Furosemide 40 MG Tab PO SCH (09:14)
[2019-06-17] MEDS: Aspirin 81 MG Tab.EC PO SCH (09:14)
[2019-06-17] MEDS: Metoprolol Succinate 50 MG Tab.ER PO SCH (09:15)
[2019-06-17] MEDS: atorvaSTATin 10 MG Tab PO SCH (09:15)
[2019-06-17 09:16] VITALS: BP 164/77; PULSE 99
[2019-06-17] MEDS: Lidocaine 5% 700 MG Patch TOP SCH (09:16)
[2019-06-17] MEDS: APIXABAN 2.5 MG PO SCH (09:19)
[2019-06-17] MEDS: UMECLIDINIUM BROMIDE INH SCH (09:19)
--- NOTE | 2019-06-17 09:20 | PCM.DCSUM1 ---
Discharge Summary - Hospital Course Free Text/Narrative:: 73 y/o m w PMHx COPD, HTN, myelodysplastic, chronic anemia, chronic pain syndrome, CAD w hx of [place] s/p CVA A/P left carotid endarterectomy, chronic lower back pain with right radiculopathy who recently was diagnosed with lung cancer and underwent VATS of the right lower lobe and right middle lobe lobectomies on 04/26/19. 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 During the hospitalization patient had prolonged air leak postoperatively. He was discharged from hospital with pneumostat tube. He returned to the hospital for readmission next day for significant shortness of breath. He was found to have right-sided hydropneumothorax s/p chest tube placement. According to reports he had been on cefepime and vancomycin since for possible pneumonia. CT chest on 05/09/19 showed right middle lobe and right lower lobe consolidation, possible empyema. He was discharged on 05/11/19 on outpatient IV ertapenem. Then he was rehospitalized for confusion and discharged on . He was readmitted again on 05/25/19 for temperature of 100.1 Fahrenheit, continuous shortness of breath, intermittent confusion, generalized weakness, and multiple falls. On that admission he had no leukocytosis. Chest x-ray showed stable right middle lobe and right paced infiltrate, according to note. CT chest from 05/27/19 showed small right empyema and extensive consolidation in the right lower lung. He underwent bronchoscopy on 05/31/19. He is discharged from [facility] on 06/02/19 to be [facility] to continue IV Zosyn 3.375 g every 8 hours and have physical therapy and became additional therapy for strengthening things. Follow up CT chest with contrast showed incidental finding of dilated biliary ducts. Ultrasound reported intrahepatic, extrahepatic, and pancreatic duct dilation. No scintigraphic evidence of choledocholithiasis. Findings are concerning for obstructing stone/mass or stricture at the level of the ampulla. Consider MRCP/ERCP. CT A/P with contrast also showed intrahepatic, extrahepatic , and pancreatic duct dilation. AST/ALP/Alk Phos are elevated. TB and DB remain within normal limits. Lipase elevated. Patient remain asymptomatic. He is being transferred to [facility] for further evaluation with MRCP/ERCP and also GI evaluation. Diagnosis: Stroke: No - Discharge Data Discharge Date: 06/17/19 Discharge Disposition: DC/Tfer to Acute Hospital 02 Condition: Good - Referral to Home Health Primary Care Physician: Shannon Butts NP - Patient Summary/Data Consults: Consultations 06/02/19 16:16 OT Evaluation and Treatment [CONS] Routine PT Evaluation and Treatment [CONS] Routine - Discharge Plan *PRESCRIPTION DRUG MONITORING PROGRAM REVIEWED*: Not Applicable *COPY OF PRESCRIPTION DRUG MONITORING REPORT IN PATIENT JIL: Not Applicable Prescriptions/Med Rec: Piperacillin/Tazobactam [Zosyn] 3.375 gm IV Q8HR 10 Days vial Home Medications: Home Meds Metoprolol Succinate [Toprol Xl] 50 mg PO DAILY 06/05/14 [History] Omeprazole 20 mg PO BID 06/05/14 [History] Multivitamins,Therapeutic [Thera] 1 each PO DAILY #30 tab 06/21/14 [Rx] Albuterol [Proventil HFA] 2 puff INH Q4H PRN 04/29/15 [History] Aspirin [Ecotrin EC] 81 mg PO DAILY 12/14/17 [History] atorvaSTATin Calcium [Atorvastatin Calcium] 10 mg PO DAILY 12/14/17 [History] Umeclidinium [place] [Incruse Ellipta*] 1 puff IN DAILY 05/04/19 [History] Albuterol/Ipratropium [DuoNeb 3.0-0.5 MG/3 ML] 3 ml INH QID 05/20/19 [History] Apixaban [Eliquis] 2.5 mg PO BID 05/20/19 [History] Budesonide [Pulmicort] 0.5 mg IH BID 05/20/19 [History] Fexofenadine HCl [[place] Allergy] 60 mg PO DAILY 05/22/19 [History] Darbepoetin [place] [Aranesp] 300 mcg SQ Q7D 05/25/19 [History] Ascorbic Acid [Vitamin C with Anum Hips] 500 mg PO DAILY 06/02/19 [History] Furosemide [Lasix] 40 mg PO DAILY 06/02/19 [History] Lidocaine 5% [Lidoderm 5%] 700 mg TOP Q24H MDD 12 hours on, 12 hours off [History] Melatonin 3 mg PO BEDTIME PRN 06/02/19 [History] rOPINIRole [Requip] 2 mg PO TID PRN 06/02/19 [History] traZODone HCl [Trazodone HCl] 50 mg PO BEDTIME 06/02/19 [History] Piperacillin/Tazobactam [Zosyn] 3.375 gm IV Q8HR 10 Days vial 06/17/19 [Rx] Oxygen Therapy Mode: Nasal Cannula Patient Handouts: Blood Transfusion, Adult, [id number] - Discharge Summary/Plan Comment DC Time >30 min.: Yes - General Info Date of Service: 06/17/19 Admission Dx/Problem (Free Text: Admission Diagnosis/Problem Admission Diagnosis/Problem Pneumonia/Abnormal LFTs/Abnormal CT AP findings Functional Status: Reports: Pain Controlled - Review of Systems General: Reports: No Symptoms HEENT: Reports: No Symptoms Pulmonary: Reports: No Symptoms Cardiovascular: Reports: No Symptoms Gastrointestinal: Reports: No Symptoms Genitourinary: Reports: No Symptoms Musculoskeletal: Reports: No Symptoms Skin: Reports: No Symptoms Neurological: Reports: No Symptoms Psychiatric: Reports: No Symptoms - Patient Data Vitals - Most Recent: Last Vital Signs Temp 98.9 F 06/16/19 23:00 Pulse 99 06/17/19 09:15 Resp 20 06/16/19 20:00 BP 164/77 H 06/17/19 09:15 Pulse Ox 94 L 06/17/19 07:27 Weight - Most Recent: 128 lb 4.8 oz I&O - Last 24 hours: Intake & Output 06/16/19 06/17/19 06/17/19 22:59 06:59 14:59 Intake Total 317 301 120 Balance 317 301 120 Lab Results - Last 24 hrs: Laboratory Results - last 24 hr 06/16/19 06/17/19 Range/Units 06:15 06:05 Total Bilirubin 0.9 (0.2-1.0) mg/dL Direct Bilirubin 0.3 H 0.2 (0.0-0.2) mg/dL Indirect Bilirubin 0.7 AST 77 H (10-42) IU/L ALT 97 H (10-60) IU/L Alkaline Phosphatase 195 H (42-121) IU/L Total Protein 7.9 (6.7-8.2) g/dl Albumin 4.0 (3.2-5.5) g/dl Globulin 3.9 Albumin/Globulin Ratio 1.03 Med Orders - Current: Current Medications Acetaminophen (Tylenol) 650 mg PO Q4H PRN PRN Reason: Pain (Mild 1-3)/fever Last Admin: 06/14/19 14:12 Dose: 650 mg Acetaminophen (Tylenol Extra Strength) 500 mg PO Q12HR [facility] Last Admin: 06/17/19 09:14 Dose: 500 mg Albuterol (Proventil Hfa) 0 gm INH Q4H PRN PRN Reason: Shortness of Breath Albuterol/Ipratropium (Duoneb 3.0-0.5 Mg/3 Ml) 3 ml INH QIDRT [facility] Last Admin: 06/17/19 07:22 Dose: 3 ml Ascorbic Acid (Vitamin C) 500 mg PO DAILY [facility] Last Admin: 06/17/19 09:14 Dose: 500 mg Aspirin (Halfprin) 81 mg PO DAILY [facility] Last Admin: 06/17/19 09:14 Dose: 81 mg Atorvastatin Calcium (Lipitor) 10 mg PO DAILY [facility] Last Admin: 06/17/19 09:15 Dose: 10 mg Bisacodyl (Dulcolax) 5 mg PO DAILY PRN PRN Reason: Constipation Budesonide (Pulmicort) 0.5 mg INH BIDRT [facility] Last Admin: 06/17/19 07:23 Dose: 0.5 mg Furosemide (Lasix) 40 mg PO DAILY [facility] Last Admin: 06/17/19 09:14 Dose: 40 mg Guaifenesin (Robitussin) 100 mg PO Q4H PRN PRN Reason: Cough Piperacillin Sod/Tazobactam (Sod 3.375 gm/ Sodium Chloride) 100 mls @ 200 mls/ hr IV Q8HR [facility] Last Infusion: 06/17/19 06:36 Dose: Infused Ibuprofen (Motrin) 400 mg PO Q8H PRN PRN Reason: back pain Last Admin: 06/15/19 14:08 Dose: 400 mg Lidocaine (Lidoderm 5%) 700 mg TOP DAILY [facility] Last Admin: 06/17/19 09:16 Dose: 700 mg Loratadine (Claritin) 10 mg PO DAILY [facility] Last Admin: 06/17/19 09:13 Dose: 10 mg Melatonin (Melatonin) 3 mg PO BEDTIME PRN PRN Reason: Sleep Metoprolol Succinate (Toprol Xl) 50 mg PO DAILY [facility] Last Admin: 06/17/19 09:15 Dose: 50 mg Miscellaneous Information (Remove Patch) 1 ea TRDERM BEDTIME [facility] Last Admin: 06/16/19 22:01 Dose: 1 ea Multivitamins (Thera) 1 each PO DAILY [facility] Last Admin: 06/17/19 09:13 Dose: 1 each Apixaban [Eliquis] 2 (.5 Mg Tab) 2.5 mg PO BID [facility] Last Admin: 06/17/19 09:19 Dose: 2.5 mg Calmoseptine (Ointment *Own Med*) 0 each TOP QID PRN PRN Reason: rash Last Admin: 06/03/19 23:02 Dose: 1 each Umeclidinium [place] [Incruse Ellipta] Inhaler *Own Med* 1 puff INH DAILY [facility] Last Admin: 06/17/19 09:19 Dose: 1 puff Omeprazole (Omeprazole) 20 mg PO BID [facility] Last Admin: 06/17/19 09:14 Dose: 20 mg Ondansetron HCl (Zofran) 4 mg IVPUSH Q6H PRN PRN Reason: Nausea/Vomiting Ondansetron HCl (Zofran Odt) 4 mg PO Q6H PRN PRN Reason: nausea, able to take PO Polyethylene Glycol (Miralax) 17 gm PO DAILY PRN PRN Reason: Constipation Ropinirole HCl (Requip) 4 mg PO Q4HR [facility] Last Admin: 06/17/19 09:14 Dose: 4 mg Sodium Chloride ([place] Nasal [place]) 0 ml [place] BID PRN PRN Reason: Nasal Congestion Sodium Chloride (Saline Flush) 10 ml FLUSH ASDIRECTED PRN PRN Reason: Keep Vein Open Last Admin: 06/17/19 05:55 Dose: 10 ml Trazodone HCl (Trazodone) 50 mg PO BEDTIME [facility] Last Admin: 06/16/19 20:58 Dose: 50 mg Discontinued Medications Acetaminophen (Tylenol) 650 mg PO Q8H PRN PRN Reason: Pain (mild 1-3) Hydrocodone Bitart/Acetaminophen ([place] 325-10 Mg) 1 tab PO Q4H PRN PRN Reason: Pain (moderate 4-6) Barium Sulfate (Readi-Cat 2) 450 ml PO ONETIME ONE Stop: 06/16/19 12:31 Last Admin: 06/16/19 12:38 Dose: 450 ml Barium Sulfate (Readi-Cat 2) 225 ml PO ONETIME ONE Stop: 06/16/19 13:31 Last Admin: 06/16/19 13:43 Dose: 225 ml Budesonide (Pulmicort) 0.5 mg INH BID [facility] Last Admin: 06/09/19 10:09 Dose: Not Given Piperacillin Sod/Tazobactam (Sod 3.375 gm/ Sodium Chloride) 100 mls @ 200 mls/ hr IV Q8H [facility] Last Admin: 06/03/19 14:18 Dose: Not Given Piperacillin Sod/Tazobactam (Sod 3.375 gm/ Sodium Chloride) 100 mls @ 200 mls/ hr IV Q8HR [facility] Iopamidol (Isovue-300 (61%)) 75 ml IVPUSH ONETIME ONE Stop: 06/14/19 08:31 Last Admin: 06/14/19 10:22 Dose: 75 ml Iopamidol (Isovue-300 (61%)) 75 ml IVPUSH ONETIME ONE Stop: 06/16/19 14:15 Last Admin: 06/16/19 14:23 Dose: 75 ml Miscellaneous Information (Remove Patch) 1 ea TRDERM ONETIME [facility] Miscellaneous Information (Remove Patch) 1 ea TRDERM ONETIME [facility] Stop: 06/04/19 00:43 Last Admin: 06/03/19 23:04 Dose: 1 ea Morphine Sulfate (Morphine) 2 mg IVPUSH Q2H PRN PRN Reason: Pain (severe 7-10) Umeclidinium [place] [Incruse Ellipta] Inhaler *Own Med* 1 puff INH DAILYRT [facility] Last Admin: 06/13/19 08:36 Dose: 1 puff Ropinirole HCl (Requip) 2 mg PO TID PRN PRN Reason: RLS PAIN Last Admin: 06/02/19 19:08 Dose: 2 mg Ropinirole HCl (Requip) 4 mg PO QID PRN PRN Reason: RLS PAIN Last Admin: 06/06/19 13:07 Dose: 4 mg Ropinirole HCl (Requip) 4 mg PO Q4H PRN PRN Reason: RLS PAIN Last Admin: 06/09/19 08:38 Dose: 4 mg Ropinirole HCl (Requip) 4 mg PO Q4HR [facility] Last Admin: 06/09/19 15:29 Dose: Not Given Zolpidem Tartrate (Ambien) 5 mg PO BEDTIME PRN PRN Reason: Sleep - Exam General: Reports: Alert, Oriented HEENT: Reports: Pupils Equal, Pupils Reactive, EOMI, Mucous Membr. Moist/[place] Neck: Reports: Supple Lungs: Reports: Clear to Auscultation, Normal Respiratory Effort Cardiovascular: Reports: Regular Rate, Regular Rhythm GI/Abdominal Exam: Normal Bowel Sounds, Soft, Non-Tender, No Organomegaly, No Distention, No Abnormal Bruit, No Mass, Pelvis Stable (Male) Exam: No Hernia, Normal Inspection, Normal Prostate, Circumcised Rectal (Males) Exam: Normal Exam, Normal Rectal Tone, Prostate Normal Back Exam: Reports: Normal Inspection, Full Range of Motion Extremities: Normal Inspection, Normal Range of Motion, Non-Tender, No Pedal Edema, Normal Capillary Refill Skin: Reports: Warm, Dry, Intact Wound/Incisions: Reports: Healing Well Neurological: Reports: No New Focal Deficit Psy/Mental Status: Reports: Alert, Normal Affect, Normal Mood
== END 2019-06-17 10:05 | DRG 194 ==
LOC: DL.MS 14:10
PROVIDERS: ADMIT Family Medicine; ATTEND Student in an Organized Health Care Education/Training Program
PROC: 30233N1 Transfusion of Nonautologous Red Blood Cells into Peripheral Vein, Percutaneous Approach (ICD-10-PCS; principal; 2019-06-10)
DX: J18.9 Pneumonia, unspecified organism (principal); C34.31 Malignant neoplasm of lower lobe, right bronchus or lung; J44.9 Chronic obstructive pulmonary disease, unspecified; I10 Essential (primary) hypertension; D46.9 Myelodysplastic syndrome, unspecified; G89.4 Chronic pain syndrome; I25.10 Atherosclerotic heart disease of native coronary artery without angina pectoris; M54.16 Radiculopathy, lumbar region; K86.89 Other specified diseases of pancreas; K83.8 Other specified diseases of biliary tract; R74.8 Abnormal levels of other serum enzymes; K21.9 Gastro-esophageal reflux disease without esophagitis; H54.7 Unspecified visual loss; G25.81 Restless legs syndrome; I48.91 Unspecified atrial fibrillation; K59.09 Other constipation; M19.90 Unspecified osteoarthritis, unspecified site; Z90.49 Acquired absence of other specified parts of digestive tract; Z90.2 Acquired absence of lung [part of]; Z87.891 Personal history of nicotine dependence; I25.2 Old myocardial infarction; Z86.73 Personal history of transient ischemic attack (TIA), and cerebral infarction without residual deficits; Z98.890 Other specified postprocedural states; Z87.01 Personal history of pneumonia (recurrent); Z85.118 Personal history of other malignant neoplasm of bronchus and lung; Z79.899 Other long term (current) drug therapy; Z91.030 Bee allergy status; Z88.8 Allergy status to other drugs, medicaments and biological substances; Z88.6 Allergy status to analgesic agent; Z79.82 Long term (current) use of aspirin
CPT/HCPCS: 36415; 36430; 71260; 74177; 74181; 80048; 80053; 80076; 81001; 82150; 82248; 82565; 83690; 84460; 85014; 85018; 85025; 85027; 85651; 86140; 86850; 86900; 86901; 86920; 86922; 94640; 97110-GO; 97110-GP; 97116-GP; 97161-GP; 97165-GO; 97530-GO; A9270-GY; J2543; J7050; J7620-GY; P9040; Q9967

== ENCOUNTER 2019-06-20 11:30 | Inpatient (IN) | payer MEDICARE, BC ==
[2019-06-20] MEDS ORDERED: Ondansetron 4 MG/2 ML SDV IVPUSH PRN (13:28)
[2019-06-20] MEDS ORDERED: Acetaminophen 325 MG Tab PO PRN ×2 (13:28→14:30)
--- NOTE | 2019-06-20 14:00 | PCM.HP ---
H&P History of Present Illness - General Date of Service: 06/20/19 Admit Problem/Dx: Admission Diagnosis/Problem Admission Diagnosis/Problem Bacteremia Source of Information: Patient History Limitations: Reports: No Limitations - History of Present Illness Initial Comments - Free Text/Narative: King Vides a 73-year-old man with medical history of lung cancer status post partial right lung resection. Post ops was complicated by empyema with pneumonia and has been on intravenous antibiotics in swing bed. Follow up CT detected incidental asymptomatic dilation of CBD/PD. Liver enzymes were elevated. Patient was transferred back to [facility] for further evaluation by GI. Patient had EUS with Doppler without FNA. This showed dilated PD throughout the entire pancreas at 5-7 mm with some ectatic changes and wall thickening and non- shadowing debris. Significantchanges of chronic pancreatitis with lobularity with honeycombing, scattered hyperechoic foci, strandingand ectatic main PD with hyperechoic zepeda. Dilated tortuousPDin HOP and dilated CBD/CHD at 10+ mm without obviousdistal CBD choledocholithiasis. Limited visualization of ampullaand periampullary area. Dilated GB with sludgeand small stones. Recommendation was; 1. Monitor LFTs, in particular bili, during next 4 weeks during weekly labs while on IV Abx, and if stable then check LFTs every 2 weeks thereafter until repeat CT triple phase with IV contrast or MRI with IV contrast/MRCP in 6-8 weeks (second half of July,). 2. If significant elevations of bili (conjugated) or jaundice in meantime, then obtain ERCP, but if no elevations of bili or jaundice, but repeat CT triple phase with IV contrast or MRI with IV contrast/MRCP at 6-8 weeks with new lesions then repeat EUS +/- ERCP at that time as pt recovers from recent lung CA resection complicated by FNA/empyema 3.f/u withGI forpathology results 4.[facility] Patient was transferred back to swing bed to complete IV abx. His LFT has been trending down. At bedside evaluation he has no complaints. He denies fever, chills, n/v, abdominal pain, jaundice. Improves with: Reports: None Worsens with: Reports: None Associated Symptoms: Reports: No Other Symptoms Generalized Pain Score (Numeric/FACES): 4 - Related Data Allergies/Adverse Reactions: Allergies Allergy/AdvReac Type Severity Reaction Status Date / Time bee venom protein (honey bee) Allergy Facial Verified 06/20/19 12:34 Swelling naproxen [From Naprosyn] Allergy Swelling Verified 06/20/19 12:34 gabapentin AdvReac Cannot Verified 06/20/19 12:34 Remember pregabalin [From Lyrica] AdvReac Excitabilit Verified 06/20/19 12:34 y Home Medications: Home Meds Metoprolol Succinate [Toprol Xl] 50 mg PO DAILY 06/05/14 [History] Omeprazole 20 mg PO BID 06/05/14 [History] Multivitamins,Therapeutic [Thera] 1 each PO DAILY #30 tab 06/21/14 [Rx] Albuterol [Proventil HFA] 2 puff INH Q4H PRN 04/29/15 [History] Aspirin [Ecotrin EC] 81 mg PO DAILY 12/14/17 [History] atorvaSTATin Calcium [Atorvastatin Calcium] 10 mg PO DAILY 12/14/17 [History] Umeclidinium [place] [Incruse Ellipta*] 1 puff IN DAILY 05/04/19 [History] Albuterol/Ipratropium [DuoNeb 3.0-0.5 MG/3 ML] 3 ml INH QID 05/20/19 [History] Apixaban [Eliquis] 2.5 mg PO BID 05/20/19 [History] Budesonide [Pulmicort] 0.5 mg IH BID 05/20/19 [History] Fexofenadine HCl [[place] Allergy] 60 mg PO DAILY 05/22/19 [History] Darbepoetin [place] [Aranesp] 300 mcg SQ Q7D PRN 05/25/19 [History] Ascorbic Acid [Vitamin C with Anum Hips] 500 mg PO DAILY 06/02/19 [History] Furosemide [Lasix] 40 mg PO DAILY 06/02/19 [History] Lidocaine 5% [Lidoderm 5%] 700 mg TOP Q24H MDD 12 hours on, 12 hours off [History] Melatonin 3 mg PO BEDTIME PRN 06/02/19 [History] rOPINIRole [Requip] 2 mg PO TID PRN 06/02/19 [History] traZODone HCl [Trazodone HCl] 50 mg PO BEDTIME 06/02/19 [History] Piperacillin/Tazobactam [Zosyn] 3.375 gm IV Q8HR 10 Days vial 06/17/19 [Rx] Acetaminophen 325 mg PO Q8HR PRN 06/20/19 [History] Ibuprofen 400 mg PO Q8HR PRN 06/20/19 [History] Past Medical History HEENT History: Reports: Impaired Vision, Other (See Below) Other HEENT History: reading glasses Cardiovascular History: Reports: Afib, CAD, Hypertension, [place] Respiratory History: Reports: COPD, Intubation, Previous, Pneumonia, Recurrent, Pneumothorax, SOB Gastrointestinal History: Reports: None, Chronic Constipation Genitourinary History: Reports: None Musculoskeletal History: Reports: Arthritis, Back Pain, Chronic, Fracture Other Musculoskeletal History: fractured ribs, compression fractures(lumbar) Neurological History: Reports: CVA, Other (See Below) Other Neuro History: restless legs Psychiatric History: Reports: None Endocrine/Metabolic History: Reports: None Hematologic History: Reports: Anemia Other Hematologic History: myelodysplastic syndrome Immunologic History: Reports: None Oncologic (Cancer) History: Reports: Lung Other Oncologic History: skin Dermatologic History: Reports: Other (See Below) Other Dermatologic History: 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 - Infectious Disease History Other Infectious Disease History: pt cannot remember - Past Surgical History Head Surgeries/Procedures: Reports: None HEENT Surgical History: Reports: None Cardiovascular Surgical History: Reports: Carotid Stents, Other (See Below) Other Cardiovascular Surgeries/Procedures: cardiac stents Respiratory Surgical History: Reports: Lung Biopsies, Lung Resection, Thoracotomy, Other (See Below) Other Respiratory Surgeries/Procedures: right lower lobe resection(Sept 10th) GI Surgical History: Reports: Appendectomy Neurological Surgical History: Reports: None Musculoskeletal Surgical History: Reports: None Oncologic Surgical History: Reports: Lobectomy Dermatological Surgical History: Reports: None Social & Family History - Family History Family Medical History: Noncontributory - Caffeine Use Caffeine Use: Reports: Coffee - Living Situation & Occupation Living situation: Reports: , with Spouse Occupation: Retired H&P Review of Systems - Review of Systems: Review Of Systems: See Below General: Reports: No Symptoms HEENT: Reports: No Symptoms Pulmonary: Reports: No Symptoms Cardiovascular: Reports: No Symptoms Gastrointestinal: Reports: No Symptoms Genitourinary: Reports: No Symptoms Musculoskeletal: Reports: No Symptoms Skin: Reports: No Symptoms Psychiatric: Reports: No Symptoms Neurological: Reports: No Symptoms Hematologic/Lymphatic: Reports: No Symptoms Immunologic: Reports: No Symptoms Exam - Exam Exam: See Below (Not acutely ill looking) - Exam Quality Assessment: DVT Prophylaxis, Other (Not ill looking. ) General: Alert, Oriented, 4 HEENT: PERRLA, Hearing Intact, Mucosa Moist & [place], Nares Patent, Normal Nasal Septum, Posterior Pharynx Clear, Conjunctiva Clear, EOMI, EACs Clear, TMs Clear Neck: Supple, Trachea Midline, 2 Lungs: Clear to Auscultation, Normal Respiratory Effort Cardiovascular: Regular Rate, Regular Rhythm GI/Abdominal Exam: Normal Bowel Sounds, Soft, Non-Tender, No Organomegaly, No Distention, No Abnormal Bruit, No Mass, Pelvis Stable (Male) Exam: No Hernia, Normal Inspection, Normal Prostate, Circumcised Rectal (Males) Exam: Normal Exam, Normal Rectal Tone, Prostate Normal Back Exam: Normal Inspection, Full Range of Motion, NT Extremities: Normal Inspection, Normal Range of Motion, Non-Tender, No Pedal Edema, Normal Capillary Refill Skin: Warm, Dry, Intact Neurological: Cranial Nerves Intact, Reflexes Equal Bilateral Neuro Extensive - Mental Status: Alert, Oriented x3, Normal Mood/Affect, Normal Cognition Neuro Extensive - Motor, Sensory, Reflexes: CN II-XII Intact, Normal Gait, Normal Reflexes Psychiatric: Alert, Normal Affect, Normal Mood - Problem List (1) Abnormal LFTs SNOMED Code(s): 858517844 ICD Code: R94.5 - ABNORMAL RESULTS OF LIVER FUNCTION STUDIES Status: Acute Current Visit: Yes (2) Abnormal LFTs (liver function tests) SNOMED Code(s): 390589536 ICD Code: R94.5 - ABNORMAL RESULTS OF LIVER FUNCTION STUDIES Status: Acute Current Visit: Yes (3) Acute CHF (congestive heart failure) SNOMED Code(s): 78705804 ICD Code: I50.9 - HEART FAILURE, UNSPECIFIED Status: Acute Current Visit : No Qualifiers: Heart failure type: unspecified Qualified Code(s): I50.9 - Heart failure, unspecified (4) Acute ischemic heart disease SNOMED Code(s): 560130909 ICD Code: I24.9 - ACUTE ISCHEMIC HEART DISEASE, UNSPECIFIED Status: Acute Current Visit: No (5) Hypoxemia SNOMED Code(s): 253473141 ICD Code: R09.02 - HYPOXEMIA Status: Acute Current Visit: No (6) Pneumonia SNOMED Code(s): 072487472 ICD Code: J18.9 - PNEUMONIA, UNSPECIFIED ORGANISM Status: Acute Current Visit: No Problem List Initiated/Reviewed/Updated: Yes Orders Last 24hrs: Active Orders 24 hr Category Date Time Status Patient Status [ADT] Routine ADT 06/20/19 13:28 Active Ambulate [RC] ASDIRECTED Care 06/20/19 13:28 Active Notify Provider Vital Signs [RC] ASDIRECTED Care 06/20/19 13:36 Active Oxygen Therapy [RC] PRN Care 06/20/19 13:28 Active Pulse Oximetry [RC] PRN Care 06/20/19 13:36 Active VTE/DVT Education [RC] PER UNIT ROUTINE Care 06/20/19 13:28 Active Vital Signs [RC] Q4H Care 06/20/19 13:28 Active OT Evaluation and Treatment [CONS] Routine Cons 06/20/19 13:28 Active PT Evaluation and Treatment [CONS] Routine Cons 06/20/19 13:28 Active Heart Healthy Diet [DIET] Diet 06/20/19 Dinner Active Acetaminophen [Tylenol] Med 06/20/19 13:28 Ordered 650 mg PO Q4H PRN Enoxaparin [Lovenox] Med 06/21/19 09:00 Ordered 40 mg SUBCUT DAILY Ondansetron [Zofran] Med 06/20/19 13:28 Ordered 4 mg IVPUSH Q6H PRN Resuscitation Status Routine Resus Stat 06/20/19 13:28 Ordered Medication Orders Acetaminophen (Tylenol) 650 mg PO Q4H PRN PRN Reason: Pain (Mild 1-3)/fever Enoxaparin Sodium (Lovenox) 40 mg SUBCUT DAILY JOE Ondansetron HCl (Zofran) 4 mg IVPUSH Q6H PRN PRN Reason: Nausea/Vomiting Assessment/Plan Comment:: #Asymptomatic dilatation of common bile duct.Pancreatic duct. Etiology not clear -S/p GI evaluation and EUS -Follow GI recommendations -Weekly LFTs. Last one was 06/18/2019 #Empyema / pneumonia -Continue Zosyn -Supplemental oxygen #Chronic back pain -Continue home meds #Lung cancer, squamous cell -s/p VATS, RML and RLL lobectomy -Procedure was complicated by development of right-sided hydropneumothorax for which he required chest tube. Chest tube was removed -Incentive spirometry q1h #Afib -Rate controlled on metoprolol. Continue -Continue apixaban for chronic anti-coagulation #CAD -Continue asa, statin #COPD -no exacerbation, continue home meds -Oxygen prn #Physical deconditioning -PT/OT #GERd -Continue PPI #Hypertension -Continue home medications -Monitor BP closely #Full code
[2019-06-20] MEDS ORDERED: Albuterol 6.7 GM Inhaler INH PRN (14:30)
[2019-06-20] MEDS ORDERED: Ibuprofen 400 MG Tab PO PRN (14:30)
[2019-06-20] MEDS ORDERED: Melatonin 3 MG Tab PO PRN (14:30)
[2019-06-20] MEDS ORDERED: DARBEPOETIN ALFA SQ PRN (14:30)
[2019-06-20] MEDS ORDERED: rOPINIRole 2 MG Tab PO PRN (15:30)
[2019-06-20] MEDS: Piperacillin/Tazobactam 3.375 GM in Sodium Chloride 0.9% 100 ML IV SCH ×2 (15:32→21:36)
[2019-06-20] MEDS: Omeprazole 20 MG Cap.CR PO SCH (16:03)
[2019-06-20] MEDS ORDERED: Sodium Chloride 0.9% 10 ML Syringe FLUSH PRN (16:37)
[2019-06-20] MEDS: Albuterol/Ipratropium 3.0-0.5 MG/3 ML Neb Soln INH SCH ×2 (16:50→21:27)
[2019-06-20] MEDS: Budesonide 0.5 MG/2 ML Neb Susp NEB SCH (17:00)
[2019-06-20] MEDS: rOPINIRole 2 MG Tab PO SCH ×2 (17:06→21:36)
[2019-06-20] MEDS: traZODone 50 MG Tab PO SCH (21:27)
[2019-06-20] MEDS: APIXABAN 5 MG PO SCH (21:28)
[2019-06-21] MEDS: rOPINIRole 2 MG Tab PO SCH ×6 (02:18→21:18)
[2019-06-21] MEDS: Omeprazole 20 MG Cap.CR PO SCH ×2 (05:53→16:21)
[2019-06-21] MEDS: Piperacillin/Tazobactam 3.375 GM in Sodium Chloride 0.9% 100 ML IV SCH ×3 (05:55→21:20)
[2019-06-21] MEDS: Albuterol/Ipratropium 3.0-0.5 MG/3 ML Neb Soln INH SCH ×4 (07:01→21:18)
[2019-06-21] MEDS: Budesonide 0.5 MG/2 ML Neb Susp NEB SCH ×2 (07:04→17:32)
[2019-06-21] MEDS ORDERED: Enoxaparin 40 MG/0.4 ML Syringe SUBCUT SCH (09:00)
[2019-06-21] MEDS: Aspirin 81 MG Tab.EC PO SCH (09:36)
[2019-06-21] MEDS: Ascorbic Acid 500 MG Tab PO SCH (09:37)
[2019-06-21] MEDS: Furosemide 40 MG Tab PO SCH (09:37)
[2019-06-21] MEDS: Loratadine 10 MG Tab PO SCH (09:37)
[2019-06-21] MEDS: atorvaSTATin 10 MG Tab PO SCH (09:38)
[2019-06-21] MEDS: Metoprolol Succinate 50 MG Tab.ER PO SCH (09:38)
[2019-06-21] MEDS: Multivitamins,Therapeutic Tab PO SCH (09:39)
[2019-06-21] MEDS: Lidocaine 5% 700 MG Patch TOP SCH (09:42)
[2019-06-21] MEDS: APIXABAN 5 MG PO SCH ×2 (09:43→21:19)
[2019-06-21] MEDS: traZODone 50 MG Tab PO SCH (21:18)
[2019-06-22] MEDS: rOPINIRole 2 MG Tab PO SCH ×3 (02:34→09:52)
[2019-06-22] MEDS: Piperacillin/Tazobactam 3.375 GM in Sodium Chloride 0.9% 100 ML IV SCH (05:38)
[2019-06-22] MEDS: Omeprazole 20 MG Cap.CR PO SCH (05:38)
[2019-06-22] MEDS: Albuterol/Ipratropium 3.0-0.5 MG/3 ML Neb Soln INH SCH (07:34)
[2019-06-22] MEDS: Budesonide 0.5 MG/2 ML Neb Susp NEB SCH (07:35)
[2019-06-22 08:05] VITALS: BP 135/63; PULSE 80
[2019-06-22] MEDS: Furosemide 40 MG Tab PO SCH (08:47)
[2019-06-22] MEDS: Multivitamins,Therapeutic Tab PO SCH (08:47)
[2019-06-22] MEDS: Loratadine 10 MG Tab PO SCH (08:47)
[2019-06-22] MEDS: atorvaSTATin 10 MG Tab PO SCH (08:48)
[2019-06-22] MEDS: Metoprolol Succinate 50 MG Tab.ER PO SCH (08:48)
[2019-06-22] MEDS: Lidocaine 5% 700 MG Patch TOP SCH (08:49)
[2019-06-22] MEDS: Aspirin 81 MG Tab.EC PO SCH (08:49)
[2019-06-22] MEDS: Ascorbic Acid 500 MG Tab PO SCH (08:49)
[2019-06-22] MEDS: APIXABAN 5 MG PO SCH (08:50)
--- NOTE | 2019-06-22 12:51 | PCM.DCSUM1 ---
Discharge Summary - Hospital Course Free Text/Narrative:: King Vides a 73-year-old man with medical history of lung cancer status post partial right lung resection. Post ops was complicated by empyema with pneumonia and has been on intravenous antibiotics in swing bed. Follow up CT detected incidental asymptomatic dilation of CBD/PD. Liver enzymes were elevated. Patient was transferred back to [facility] for further evaluation by GI. Patient had EUS with Doppler without FNA. This showed dilated PD throughout the entire pancreas at 5-7 mm with some ectatic changes and wall thickening and non- shadowing debris. Significantchanges of chronic pancreatitis with lobularity with honeycombing, scattered hyperechoic foci, strandingand ectatic main PD with hyperechoic zepeda. Dilated tortuousPDin HOP and dilated CBD/CHD at 10+ mm without obviousdistal CBD choledocholithiasis. Limited visualization of ampullaand periampullary area. Dilated GB with sludgeand small stones. Recommendation was; 1. Monitor LFTs, in particular bili, during next 4 weeks during weekly labs while on IV Abx, and if stable then check LFTs every 2 weeks thereafter until repeat CT triple phase with IV contrast or MRI with IV contrast/MRCP in 6-8 weeks (second half of July,). 2. If significant elevations of bili (conjugated) or jaundice in meantime, then obtain ERCP, but if no elevations of bili or jaundice, but repeat CT triple phase with IV contrast or MRI with IV contrast/MRCP at 6-8 weeks with new lesions then repeat EUS +/- ERCP at that time as pt recovers from recent lung CA resection complicated by FNA/empyema 3.f/u withGI forpathology results 4.f/u withyourPrimary Care Physician Patient was transferred back to swing bed to complete IV abx. His LFT has been trending down. At bedside evaluation he has no complaints. He denies fever, chills, n/v, abdominal pain, jaundice. #Asymptomatic dilatation of common bile duct.Pancreatic duct. Etiology not clear -S/p GI evaluation and EUS -Follow GI recommendations -Weekly LFTs. Last one was 06/18/2019 #Empyema / pneumonia -finished tx. with Zosyn -Supplemental oxygen #Chronic back pain -Continue home meds #Lung cancer, squamous cell -s/p VATS, RML and RLL lobectomy -Procedure was complicated by development of right-sided hydropneumothorax for which he required chest tube. Chest tube was removed #Afib -Rate controlled on metoprolol. Continue -Continue apixaban for chronic anti-coagulation #CAD -Continue asa, statin #COPD -no exacerbation, continue home meds -Oxygen supplement Diagnosis: Stroke: No - Discharge Data Discharge Date: 06/22/19 Discharge Disposition: Home, Self-Care 01 Condition: Good - Referral to Home Health Primary Care Physician: Shannon Butts NP - Patient Summary/Data Consults: Consultations 06/20/19 13:28 OT Evaluation and Treatment [CONS] Routine PT Evaluation and Treatment [CONS] Routine - Patient Instructions Diet: Heart Healthy Diet Activity: As Tolerated - Discharge Plan *PRESCRIPTION DRUG MONITORING PROGRAM REVIEWED*: Not Applicable *COPY OF PRESCRIPTION DRUG MONITORING REPORT IN PATIENT JIL: Not Applicable Home Medications: Home Meds Metoprolol Succinate [Toprol Xl] 50 mg PO DAILY 06/05/14 [History] Omeprazole 20 mg PO BID 06/05/14 [History] Multivitamins,Therapeutic [Thera] 1 each PO DAILY #30 tab 06/21/14 [Rx] Albuterol [Proventil HFA] 2 puff INH Q4H PRN 04/29/15 [History] Aspirin [Ecotrin EC] 81 mg PO DAILY 12/14/17 [History] atorvaSTATin Calcium [Atorvastatin Calcium] 10 mg PO DAILY 12/14/17 [History] Umeclidinium [place]aho [Incruse Ellipta*] 1 puff IN DAILY 05/04/19 [History] Albuterol/Ipratropium [DuoNeb 3.0-0.5 MG/3 ML] 3 ml INH QID 05/20/19 [History] Apixaban [Eliquis] 2.5 mg PO BID 05/20/19 [History] Budesonide [Pulmicort] 0.5 mg IH BID 05/20/19 [History] Fexofenadine HCl [Bronwyn Allergy] 60 mg PO DAILY 05/22/19 [History] Darbepoetin Chuy [Aranesp] 300 mcg SQ Q7D PRN 05/25/19 [History] Ascorbic Acid [Vitamin C with Anum Hips] 500 mg PO DAILY 06/02/19 [History] Furosemide [Lasix] 40 mg PO DAILY 06/02/19 [History] Lidocaine 5% [Lidoderm 5%] 700 mg TOP Q24H MDD 12 hours on, 12 hours off [History] Melatonin 3 mg PO BEDTIME PRN 06/02/19 [History] rOPINIRole [Requip] 4 mg PO Q4HR PRN 06/02/19 [History] traZODone HCl [Trazodone HCl] 50 mg PO BEDTIME 06/02/19 [History] Acetaminophen 325 mg PO Q8HR PRN 06/20/19 [History] Ibuprofen 400 mg PO Q8HR PRN 06/20/19 [History] Oxygen Therapy Mode: Nasal Cannula - Discharge Summary/Plan Comment DC Time >30 min.: No - General Info Date of Service: 06/22/19 - Review of Systems General: Denies: Fever Pulmonary: Reports: Shortness of Breath (chronic on oxygen) Cardiovascular: Denies: Chest Pain Gastrointestinal: Denies: Abdominal Pain Neurological: Denies: Confusion - Patient Data Vitals - Most Recent: Last Vital Signs Temp 37.2 C 06/22/19 08:00 Pulse 80 06/22/19 08:48 Resp 18 06/22/19 08:00 BP 135/63 06/22/19 08:48 Pulse Ox 96 06/22/19 08:00 Weight - Most Recent: 56.245 kg I&O - Last 24 hours: Intake & Output 06/21/19 06/22/19 06/22/19 22:59 06:59 14:59 Intake Total 1720 220 Balance 1720 220 Med Orders - Current: Current Medications Acetaminophen (Tylenol) 650 mg PO Q4H PRN PRN Reason: Pain (Mild 1-3)/fever Albuterol (Proventil Hfa) 0 gm INH Q4H PRN PRN Reason: Shortness of Breath Albuterol/Ipratropium (Duoneb 3.0-0.5 Mg/3 Ml) 3 ml INH QIDRT [facility] Last Admin: 06/22/19 07:34 Dose: 3 ml Ascorbic Acid (Vitamin C) 500 mg PO DAILY [facility] Last Admin: 06/22/19 08:49 Dose: 500 mg Aspirin (Halfprin) 81 mg PO DAILY [facility] Last Admin: 06/22/19 08:49 Dose: 81 mg Atorvastatin Calcium (Lipitor) 10 mg PO DAILY [facility] Last Admin: 06/22/19 08:48 Dose: 10 mg Budesonide (Pulmicort) 0.5 mg NEB BIDRT [facility] Last Admin: 06/22/19 07:35 Dose: 0.5 mg Furosemide (Lasix) 40 mg PO DAILY [facility] Last Admin: 06/22/19 08:47 Dose: 40 mg Piperacillin Sod/Tazobactam (Sod 3.375 gm/ Sodium Chloride) 100 mls @ 200 mls/ hr IV Q8HR [facility] Last Admin: 06/22/19 05:38 Dose: 200 mls/hr Ibuprofen (Motrin) 400 mg PO Q8HR PRN PRN Reason: Pain (mild 1-3) Lidocaine (Lidoderm 5%) 700 mg TOP Q24H [facility] Last Admin: 06/22/19 08:49 Dose: 700 mg Loratadine (Claritin) 10 mg PO DAILY [facility] Last Admin: 06/22/19 08:47 Dose: 10 mg Melatonin (Melatonin) 3 mg PO BEDTIME PRN PRN Reason: Sleep Metoprolol Succinate (Toprol Xl) 50 mg PO DAILY [facility] Last Admin: 06/22/19 08:48 Dose: 50 mg Miscellaneous Information (Remove Patch) 1 ea TRDERM BEDTIME [facility] Last Admin: 06/21/19 23:36 Dose: Not Given Multivitamins (Thera) 1 each PO DAILY [facility] Last Admin: 06/22/19 08:47 Dose: 1 each Apixaban [Eliquis] 5 (Mg Nonform Med) 2.5 mg PO BID [facility] Last Admin: 06/22/19 08:50 Dose: 2.5 mg Darbepoetin Chuy [ Aranesp] 300 Mcg- Pt Own Med 300 mcg SQ Q7D PRN PRN Reason: Other Umeclidinium [place] [Incruse Ellipta] Inhaler 1 puff IN DAILY [facility] Last Admin: 06/22/19 08:51 Dose: 1 puff Omeprazole (Omeprazole) 20 mg PO BIDAC [facility] Last Admin: 06/22/19 05:38 Dose: 20 mg Ondansetron HCl (Zofran) 4 mg IVPUSH Q6H PRN PRN Reason: Nausea/Vomiting Ropinirole HCl (Requip) 4 mg PO Q4H [facility] Last Admin: 06/22/19 09:52 Dose: 4 mg Sodium Chloride (Saline Flush) 10 ml FLUSH ASDIRECTED PRN PRN Reason: Keep Vein Open Last Admin: 06/21/19 13:50 Dose: 10 ml Trazodone HCl (Trazodone) 50 mg PO BEDTIME [facility] Last Admin: 06/21/19 21:18 Dose: 50 mg Discontinued Medications Enoxaparin Sodium (Lovenox) 40 mg SUBCUT DAILY [facility] Piperacillin Sod/Tazobactam Sod (Zosyn) 3.375 gm IV Q8HR [facility]E Ropinirole HCl (Requip) 2 mg PO TID PRN PRN Reason: RLS PAIN - Exam General: Reports: Alert, Oriented Neck: Reports: Supple Lungs: Reports: Decreased Breath Sounds GI/Abdominal Exam: Normal Bowel Sounds, Soft, Non-Tender Extremities: No Pedal Edema Skin: Reports: Warm, Dry Psy/Mental Status: Reports: Alert, Normal Affect, Normal Mood
== END 2019-06-22 14:20 | disposition home or self-care (01) | DRG 177 ==
LOC: DL.MS 13:28
PROVIDERS: ADMIT Student in an Organized Health Care Education/Training Program; ATTEND Internal Medicine
DX: J86.9 Pyothorax without fistula (principal); J18.9 Pneumonia, unspecified organism; K86.1 Other chronic pancreatitis; K80.70 Calculus of gallbladder and bile duct without cholecystitis without obstruction; K86.89 Other specified diseases of pancreas; G89.29 Other chronic pain; M54.9 Dorsalgia, unspecified; I48.91 Unspecified atrial fibrillation; R74.8 Abnormal levels of other serum enzymes; I25.10 Atherosclerotic heart disease of native coronary artery without angina pectoris; J44.9 Chronic obstructive pulmonary disease, unspecified; K21.9 Gastro-esophageal reflux disease without esophagitis; I10 Essential (primary) hypertension; Z98.890 Other specified postprocedural states; Z85.118 Personal history of other malignant neoplasm of bronchus and lung; Z99.81 Dependence on supplemental oxygen; Z79.899 Other long term (current) drug therapy; Z79.82 Long term (current) use of aspirin
CPT/HCPCS: 36415; 82565; 84460; 85025; 85651; 86140; 94640; 94760; 97162-GP; 97165-GO; A9270-GY; J2543; J7050; J7620-GY

== ENCOUNTER 2019-08-14 09:54 | Inpatient (IN) | payer MEDICARE, BC ==
[2019-08-14] MEDS ORDERED: Sodium Chloride 0.9% 10 ML Syringe FLUSH PRN (10:08)
--- NOTE | 2019-08-14 10:08 | EDM.PDOC ---
ED HPI GENERAL MEDICAL PROBLEM - General Chief Complaint: Chest Pain Stated Complaint: STOMACH PAIN Time Seen by Provider: 08/14/19 10:08 Source of Information: Reports: Patient, Family, RN, RN Notes Reviewed History Limitations: Reports: No Limitations - History of Present Illness INITIAL COMMENTS - FREE TEXT/NARRATIVE: patient to the ER with complaint of abdominal pain that began approximately at midnight last night. Patient states he woke up and had an insured, and the pain continued to get worse. Patient has an ERCP scheduled in [facility] at a later date in August, patient is to have a stent removed at that time. Patient denies fever or chills, admits to shortness of breath and mild chest pain. Patient states he is on home oxygen, has had a history of lung cancer with a right lower lobe lobectomy. Patient states oxygen saturation at home was in the mid to upper 80s. Onset: Gradual Abdomen Pain Score (Numeric/FACES): 5 - Related Data Allergies Allergy/AdvReac Type Severity Reaction Status Date / Time bee venom protein (honey bee) Allergy Facial Verified 08/29/19 14:26 Swelling naproxen [From Naprosyn] Allergy Swelling Verified 08/29/19 14:26 gabapentin AdvReac Cannot Verified 08/29/19 14:26 Remember pregabalin [From Lyrica] AdvReac Excitabilit Verified 08/29/19 14:26 y Home Meds: Home Meds Metoprolol Succinate [Toprol Xl] 50 mg PO DAILY 06/05/14 [History] Omeprazole 20 mg PO BID 06/05/14 [History] Albuterol [Proventil HFA] 2 puff INH Q4H PRN 04/29/15 [History] Aspirin [Ecotrin EC] 81 mg PO DAILY 12/14/17 [History] Umeclidinium [place] [Incruse Ellipta*] 1 puff IN DAILY 05/04/19 [History] Albuterol/Ipratropium [DuoNeb 3.0-0.5 MG/3 ML] 3 ml INH QID 05/20/19 [History] Apixaban [Eliquis] 2.5 mg PO BID 05/20/19 [History] Budesonide [Pulmicort] 0.5 mg IH BID 05/20/19 [History] Fexofenadine HCl [Bronwyn Allergy] 60 mg PO DAILY 05/22/19 [History] Darbepoetin Chuy [Aranesp] 300 mcg SQ Q7D PRN 05/25/19 [History] Ascorbic Acid [Vitamin C with Anum Hips] 500 mg PO DAILY 06/02/19 [History] Furosemide [Lasix] 40 mg PO DAILY 06/02/19 [History] Lidocaine 5% [Lidoderm 5%] 700 mg TOP Q24H MDD 12 hours on, 12 hours off [History] rOPINIRole [Requip] 4 mg PO Q4HR PRN 06/02/19 [History] Acetaminophen 325 mg PO Q4H PRN 06/20/19 [History] Acetaminophen [Tylenol Extra Strength] 500 mg PO Q8H PRN 08/29/19 [History] Levofloxacin [Levaquin] 500 mg PO DAILY 08/29/19 [History] predniSONE 20 mg PO DAILY 08/29/19 [History] Past Medical History HEENT History: Reports: Impaired Vision, Other (See Below) Other HEENT History: reading glasses Cardiovascular History: Reports: Afib, CAD, Hypertension, DC Respiratory History: Reports: COPD, Intubation, Previous, Pneumonia, Recurrent, Pneumothorax, SOB Gastrointestinal History: Reports: None, Chronic Constipation Genitourinary History: Reports: None Musculoskeletal History: Reports: Arthritis, Back Pain, Chronic, Fracture Other Musculoskeletal History: fractured ribs, compression fractures(lumbar) Neurological History: Reports: CVA, Other (See Below) Other Neuro History: restless legs Psychiatric History: Reports: None Endocrine/Metabolic History: Reports: None Hematologic History: Reports: Anemia Other Hematologic History: myelodysplastic syndrome Immunologic History: Reports: None Oncologic (Cancer) History: Reports: Lung Other Oncologic History: skin Dermatologic History: Reports: Other (See Below) Other Dermatologic History: 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 - Infectious Disease History Other Infectious Disease History: pt cannot remember - Past Surgical History Head Surgeries/Procedures: Reports: None HEENT Surgical History: Reports: None Cardiovascular Surgical History: Reports: Carotid Stents, Other (See Below) Other Cardiovascular Surgeries/Procedures: cardiac stents Respiratory Surgical History: Reports: Lung Biopsies, Lung Resection, Thoracotomy, Other (See Below) Other Respiratory Surgeries/Procedures: right lower lobe resection(Sept 10th) GI Surgical History: Reports: Appendectomy Neurological Surgical History: Reports: None Musculoskeletal Surgical History: Reports: None Oncologic Surgical History: Reports: Lobectomy Dermatological Surgical History: Reports: None Social & Family History - Family History Family Medical History: Noncontributory - Caffeine Use Caffeine Use: Reports: Coffee - Living Situation & Occupation Living situation: Reports: , with Spouse Occupation: Retired ED ROS GENERAL - Review of Systems Review Of Systems: Comprehensive ROS is negative, except as noted in HPI. ED EXAM, GI/ABD - Physical Exam Exam: See Below Exam Limited By: No Limitations General Appearance: Alert, WD/WN, Mild Distress Eyes: Bilateral: Normal Appearance, EOMI Ears: Normal External Exam, Hearing Grossly Normal Nose: Normal Inspection Throat/Mouth: Normal Inspection Head: Atraumatic, Normocephalic Neck: Normal Inspection Respiratory/Chest: No Respiratory Distress, Decreased Breath Sounds, Crackles ( right upper left lower) Cardiovascular: Normal Peripheral Pulses, Regular Rate, Rhythm, No Edema, No Gallop, No JVD, No Murmur, No Rub GI/Abdominal Exam: Normal Bowel Sounds, Soft, Non-Tender, No Organomegaly, No Distention, No Abnormal Bruit, No Mass, Pelvis Stable (Male) Exam: Deferred Rectal (Males) Exam: Deferred Back Exam: Normal Inspection, Full Range of Motion, NT Extremities: Normal Inspection, Normal Range of Motion, Non-Tender, Normal Capillary Refill, No Pedal Edema Neurological: Alert, Oriented, CN II-XII Intact, Normal Cognition, Normal Gait, Normal Reflexes, No Motor/Sensory Deficits Psychiatric: Normal Affect, Normal Mood Skin Exam: Warm, Dry, Intact, Normal Color, No Rash Lymphatic: No Adenopathy Course - Vital Signs Last Recorded V/S: Last Vital Signs Temp 101.0 F H 08/14/19 14:46 Pulse 84 08/14/19 15:49 Resp 26 H 08/14/19 14:46 BP 135/119 H 08/14/19 14:46 Pulse Ox 84 L 08/14/19 15:54 - Orders/Labs/Meds Labs: Laboratory Tests 08/14/19 08/14/19 08/14/19 Range/Units 10:16 10:16 10:16 WBC 7.4 (5.0-10.0) 10^3/uL RBC 2.97 L (4.6-6.2) 10^6/uL Hgb 9.4 L (14.0-18.0) g/dL Hct 29.4 L (40.0-54.0) % MCV 99.0 D (80-100) fL MCH 31.6 (27.0-34.0) pg MCHC 32.0 L (33.0-35.0) g/dL Plt Count 166 (150-450) 10^3/uL Lymph % (Auto) 10.4 L (20.5-50.1) % Scurry % (Auto) 13.0 H (2-8) % Eos % (Auto) 0.1 L (1.0-3.0) % Add Manual Diff Yes Neutrophils % (Manual) 62 (42-75) % Band Neutrophils % 9 % Lymphocytes % (Manual) 12 L (20-50) % Monocytes % (Manual) 11 H (2-8) % Metamyelocytes % 6 Hypochromasia 1+ slight Stomatocytes 1+ slight PT 11.5 (9.0-12.0) SEC INR 1.1 (0.9-1.2) Sodium 134 L (135-145) mmol/L Potassium 4.7 (3.6-5.0) mmol/L Chloride 97 L (101-111) mmol/L Carbon Dioxide 23.0 (21.0-31.0) mmol/L Anion Gap 18.7 BUN 23 H (7-18) mg/dL Creatinine 1.0 (0.6-1.3) mg/dL Est Cr Clr Drug Dosing 58.21 mL/min Estimated GFR (MDRD) > 60 BUN/Creatinine Ratio 23.00 Glucose 98 (74-105) mg/dL Lactic Acid (0.5-2.2) mmol/L Calcium 8.6 (8.4-10.2) mg/dl Total Bilirubin 5.5 H (0.2-1.0) mg/dL AST 113 H (10-42) IU/L ALT 79 H (10-60) IU/L Alkaline Phosphatase 151 H (42-121) IU/L Ammonia (11-35) umol/L Troponin I 0.05 H* (0.00-0.02) ng/ml B-Natriuretic Peptide 724 H (0-100) pg/ml Total Protein 7.4 (6.7-8.2) g/dl Albumin 4.0 (3.2-5.5) g/dl Globulin 3.4 Albumin/Globulin Ratio 1.18 Amylase 127 H (28-100) U/L Lipase 139 H (22-51) U/L Urine Color (YELLOW) Urine Appearance (CLEAR) Urine pH (5.0-9.0) Ur Specific [place] (1.005-1.030) Urine Protein (NEGATIVE) Urine Glucose (UA) (NEGATIVE) Urine Ketones (NEGATIVE) Urine Occult Blood (NEGATIVE) Urine Nitrite (NEGATIVE) Urine Bilirubin (NEGATIVE) Urine Urobilinogen (0.2-1.0) mg/dL Ur Leukocyte Esterase (NEGATIVE) Urine RBC /HPF Urine WBC (0-5/HPF) /HPF Ur Epithelial Cells (NOT SEEN) /HPF Urine Bacteria (0-FEW/HPF) /HPF 08/14/19 08/14/19 08/14/19 Range/Units 10:16 10:16 10:33 WBC (5.0-10.0) 10^3/uL RBC (4.6-6.2) 10^6/uL Hgb (14.0-18.0) g/dL Hct (40.0-54.0) % MCV (80-100) fL MCH (27.0-34.0) pg MCHC (33.0-35.0) g/dL Plt Count (150-450) 10^3/uL Lymph % (Auto) (20.5-50.1) % Scurry % (Auto) (2-8) % Eos % (Auto) (1.0-3.0) % Add Manual Diff Neutrophils % (Manual) (42-75) % Band Neutrophils % % Lymphocytes % (Manual) (20-50) % Monocytes % (Manual) (2-8) % Metamyelocytes % Hypochromasia Stomatocytes PT (9.0-12.0) SEC INR (0.9-1.2) Sodium (135-145) mmol/L Potassium (3.6-5.0) mmol/L Chloride (101-111) mmol/L Carbon Dioxide (21.0-31.0) mmol/L Anion Gap BUN (7-18) mg/dL Creatinine (0.6-1.3) mg/dL Est Cr Clr Drug Dosing mL/min Estimated GFR (MDRD) BUN/Creatinine Ratio Glucose (74-105) mg/dL Lactic Acid 2.5 H (0.5-2.2) mmol/L Calcium (8.4-10.2) mg/dl Total Bilirubin (0.2-1.0) mg/dL AST (10-42) IU/L ALT (10-60) IU/L Alkaline Phosphatase (42-121) IU/L Ammonia 25 (11-35) umol/L Troponin I (0.00-0.02) ng/ml B-Natriuretic Peptide (0-100) pg/ml Total Protein (6.7-8.2) g/dl Albumin (3.2-5.5) g/dl Globulin Albumin/Globulin Ratio Amylase (28-100) U/L Lipase (22-51) U/L Urine Color Dark yellow (YELLOW) Urine Appearance Slightly cloudy (CLEAR) Urine pH 7.0 (5.0-9.0) Ur Specific [place] 1.020 (1.005-1.030) Urine Protein 30 H (NEGATIVE) Urine Glucose (UA) Negative (NEGATIVE) Urine Ketones Negative (NEGATIVE) Urine Occult Blood Negative (NEGATIVE) Urine Nitrite Negative (NEGATIVE) Urine Bilirubin Small H (NEGATIVE) Urine Urobilinogen 2.0 H (0.2-1.0) mg/dL Ur Leukocyte Esterase Negative (NEGATIVE) Urine RBC 0-5 /HPF Urine WBC 0-5 (0-5/HPF) /HPF Ur Epithelial Cells Rare (NOT SEEN) /HPF Urine Bacteria Rare (0-FEW/HPF) /HPF Meds: Medications Discontinued Medications Generic Name Dose Route Start Last Admin Trade Name Freq PRN Reason Stop Dose Admin Acetaminophen 650 mg 08/14/19 12:44 08/14/19 12:48 Tylenol PO 08/14/19 12:45 650 mg NOW ONE Administration Albuterol/Ipratropium Confirm 08/14/19 15:41 Duoneb 3.0-0.5 Mg/3 Ml Administered 08/14/19 15:42 Dose 3 ml .ROUTE .STK-MED ONE Docusate Sodium 100 mg 08/14/19 14:46 Colace PO DAILY PRN Constipation Piperacillin Sod/Tazobactam 100 mls @ 200 mls/hr 08/14/19 15:00 Sod 3.375 gm/ Sodium Chloride IV Q6H JOE Midazolam HCl 1 mg 08/14/19 16:33 Versed 1 Mg/Ml IVPUSH 08/14/19 16:34 ONETIME ONE Sodium Chloride 10 ml 08/14/19 10:08 08/14/19 10:14 Saline Flush FLUSH 10 ml ASDIRECTED PRN Administration Keep Vein Open - Radiology Interpretation Free Text/Narrative:: CT of abdomen/pelvis with contrast from 08/12/29: PROCEDURE INFORMATION: Exam: CT Abdomen Without And With Contrast Exam date and time: 08/12/2019 9:33 AM Age: 73 years old Clinical indication: Other: Abnormal liver function tests; Prior surgery; Surgery date: 6+ months; Surgery type: Removed lung tumor; Patient HX: Lung CA; Additional info: R/O liver or pancreas mets, R/O biliary/pancreatic lesions with prior dilated cbd/pd, unremarkable ercp brushings, eus with changes of chronic pancreatitis, in 4-6 weeks (end of - start of aug 2019 ) TECHNIQUE: Imaging protocol: Computed tomography images of the abdomen without and with intravenous contrast. Radiation optimization: All CT scans at this facility use at least one of these dose optimization techniques: automated exposure control; mA and/or kV adjustment per patient size (includes targeted exams where dose is matched to clinical indication); or iterative reconstruction. Contrast material: ISOVUE 300; Contrast volume: 100 ml; Contrast route: LAC; Other contrast: Route: Oral, Material: Readicat, Volume: 450; COMPARISON: CT Abdomen Pelvis w Cont 06/16/2019 2:00 PM FINDINGS: Lungs: Bibasilar emphysematous changes and multiple foci of parenchymal scarring. Pleural space: Small right pleural effusion with a parenchymal infiltrate at the right lung base with air bronchograms which may represent atelectasis although neoplasm and/or central obstruction not excluded. Heart: Cardiomegaly. Liver: Normal. No mass. Gallbladder and bile ducts: Status post interval placement of an indwelling biliary stent. There is mild to moderate intrahepatic biliary ductal dilatation and dilatation of the common hepatic duct measuring 8 mm. The mid and distal common bile duct are not dilated. The gallbladder is hydropic with diffuse thickening of the gallbladder wall. No calculi or mass or demonstrated. Clinical correlation to exclude gallbladder inflammation suggested. Pancreas: Irregular enlargement of the pancreatic duct measuring up to 9 mm in the pancreatic neck, findings consistent with reported history of chronic pancreatitis. No pancreatic calcifications are demonstrated. Spleen: Normal. No splenomegaly. Adrenals: Normal. No mass. Kidneys and ureters: Multiple bilateral simple renal cysts again demonstrated and are stable in appearance. The previously demonstrated fluid level in 1 of the cyst in the left kidney is not visualized as a hyperdense cyst on today's study. The finding may have been artifactual. Stomach and bowel: There is increased feces throughout the visualized colon consistent with constipation. Intraperitoneal space: Unremarkable. No free air. No significant fluid collection. Lymph nodes: Unremarkable. No enlarged lymph nodes. Vasculature: There is severe atherosclerotic calcification of the coronary arteries. The aorta demonstrates moderate atherosclerotic calcification. Bones/joints: The spine demonstrates mild degenerative changes. Soft tissues: Unremarkable. IMPRESSION: 1. Small right pleural effusion with a parenchymal infiltrate at the right lung base with air bronchograms which may represent atelectasis although neoplasm and/or central obstruction not excluded. 2. Status post interval placement of an indwelling biliary stent. There is mild to moderate intrahepatic biliary ductal dilatation and dilatation of the common hepatic duct measuring 8 mm. The mid and distal common bile duct are not dilated. 3. Irregular enlargement of the pancreatic duct measuring up to 9 mm in the pancreatic neck, findings consistent with reported history of chronic pancreatitis. No pancreatic calcifications are demonstrated. 4. The gallbladder is hydropic with diffuse thickening of the gallbladder wall. No calculi or mass or demonstrated. Clinical correlation to exclude gallbladder inflammation suggested. 5. There is increased feces throughout the visualized colon consistent with constipation. Thank you for allowing us to participate in the care of your patient. Dictated and Authenticated by: Mike Rosario MD 08/12/2019 4:28 PM Central Time ([place] & [place]) Declining respiratory status, repeat chest xray: FINDINGS: Lungs: Atelectasis/pneumonia at right lung base and elevated right hemidiaphragm. Left lung is clear Pleural space: Costophrenic angles are sharp. No pneumothorax. Heart/Mediastinum: Unremarkable. No cardiomegaly. Bones/joints: Age appropriate. IMPRESSION: Atelectasis/pneumonia at right lung base and elevated right hemidiaphragm. Not changed significantly. Thank you for allowing us to participate in the care of your patient. Dictated and Authenticated by: John Paul Lewis MD 08/14/2019 4:39 PM Central Time ([place] & [place]) See rad report - Re-Assessments/Exams Free Text/Narrative Re-Assessment/Exam: patient unable to be transferred to [facility] as there are no beds available, and weather is poor. Did call [facility] in [place] regarding transfer. [facility] does not have the capability to do an ERCP at this time, and they would most likely transfer the patient to [place]. Dr. Lopes hesitantly accepted the patient for admission to the medical floor here until a bed available, and rodents better to get him to [facility]. Once on the medical floor, patient became very short of breath, complained of chest pain. Patient was transferred back to the ER. BNP, troponin ordered. Troponin and BNP are elevated from the time they were ordered in the ER. Patient was put on BiPAP in the ER, and transferred to [place]. Departure - Departure Time of Disposition: 12:42 Disposition: Admitted As Inpatient 65 Condition: Fair Clinical Impression: NSTEMI (non-ST elevated myocardial infarction), Respiratory distress - Discharge Information *PRESCRIPTION DRUG MONITORING PROGRAM REVIEWED*: No *COPY OF PRESCRIPTION DRUG MONITORING REPORT IN PATIENT JIL: No Sepsis Event Note - Evaluation Sepsis Screening Result: No Definite Risk - Focused Exam Date Exam was Performed: 09/02/19 Time Exam was Performed: 11:11
[2019-08-14 10:46] LABS: ANION GAP 18.7; CHLORIDE,CL 97 mmol/L (101-111); SODIUM,NA 134 mmol/L (135-145)
[2019-08-14] MEDS ORDERED: Acetaminophen 325 MG Tab PO ONE (12:44)
--- NOTE | 2019-08-14 14:15 | PCM.HP ---
H&P History of Present Illness - General Date of Service: 08/14/19 Admit Problem/Dx: Admitted with : Abdominal pain, Elevated LFT Source of Information: Patient, Old Records History Limitations: Reports: No Limitations - History of Present Illness Initial Comments - Free Text/Narative: This is a 73 Y/O M with medical history of Lung cancer, S/P partial right lung resection,Patient subsequently developed empyema with pneumonia. Patient has been admitted multiple times to the hospital. post op status complicated by Empyema with pneumonia, and has received abx IV in swing bed. He had CT that showed dilation of CBD/PD, liver enzymes were elevated transferred back to [facility] evaluated by GI and had EUS with doppler aithout FNA. This showed dilated PD throughout the entire pancreas at 5-7 mm with some ectatic changes and wall thickening and non-shadowing debris. Pt had ERCP on 07/04/19 with billary stent placement and recommended stent removal in 2-[address] abd/pelvis 08/12/19 with contrast and the impression was: MPRESSION: 1. Small right pleural effusion with a parenchymal infiltrate at the right lung base with air bronchograms which may represent atelectasis although neoplasm and/or central obstruction not excluded. 2. Status post interval placement of an indwelling biliary stent. There is mild to moderate intrahepatic biliary ductal dilatation and dilatation of the common hepatic duct measuring 8 mm. The mid and distal common bile duct are not dilated. 3. Irregular enlargement of the pancreatic duct measuring up to 9 mm in the pancreatic neck, findings consistent with reported history of chronic pancreatitis. No pancreatic calcifications are demonstrated. 4. The gallbladder is hydropic with diffuse thickening of the gallbladder wall. No calculi or mass or demonstrated. Clinical correlation to exclude gallbladder inflammation suggested. 5. There is increased feces throughout the visualized colon consistent with constipation. Thank you for allowing us to participate in the care of your patient. Dictated and Authenticated by: Mike Rosario MD 08/12/2019 4:28 PM Central Time ([place] & [place]) Onset of Symptoms: Reports: Sudden, Gradual Duration of Symptoms: Reports: Day(s): Location: Reports: Abdomen Severity: Moderate Abdomen Pain Score (Numeric/FACES): 5 - Related Data Allergies/Adverse Reactions: Allergies Allergy/AdvReac Type Severity Reaction Status Date / Time bee venom protein (honey bee) Allergy Facial Verified 08/14/19 10:05 Swelling naproxen [From Naprosyn] Allergy Swelling Verified 08/14/19 10:05 gabapentin AdvReac Cannot Verified 08/14/19 10:05 Remember pregabalin [From Lyrica] AdvReac Excitabilit Verified 08/14/19 10:05 y Home Medications: Home Meds Metoprolol Succinate [Toprol Xl] 50 mg PO DAILY 06/05/14 [History] Omeprazole 20 mg PO BID 06/05/14 [History] Multivitamins,Therapeutic [Thera] 1 each PO DAILY #30 tab 06/21/14 [Rx] Albuterol [Proventil HFA] 2 puff INH Q4H PRN 04/29/15 [History] Aspirin [Ecotrin EC] 81 mg PO DAILY 12/14/17 [History] atorvaSTATin Calcium [Atorvastatin Calcium] 10 mg PO DAILY 12/14/17 [History] Umeclidinium [place] [Incruse Ellipta*] 1 puff IN DAILY 05/04/19 [History] Albuterol/Ipratropium [DuoNeb 3.0-0.5 MG/3 ML] 3 ml INH QID 05/20/19 [History] Apixaban [Eliquis] 2.5 mg PO BID 05/20/19 [History] Budesonide [Pulmicort] 0.5 mg IH BID 05/20/19 [History] Fexofenadine HCl [[place] Allergy] 60 mg PO DAILY 05/22/19 [History] Darbepoetin [place] [Aranesp] 300 mcg SQ Q7D PRN 05/25/19 [History] Ascorbic Acid [Vitamin C with Anum Hips] 500 mg PO DAILY 06/02/19 [History] Furosemide [Lasix] 40 mg PO DAILY 06/02/19 [History] Lidocaine 5% [Lidoderm 5%] 700 mg TOP Q24H MDD 12 hours on, 12 hours off [History] Melatonin 3 mg PO BEDTIME PRN 06/02/19 [History] rOPINIRole [Requip] 4 mg PO Q4HR PRN 06/02/19 [History] traZODone HCl [Trazodone HCl] 50 mg PO BEDTIME 06/02/19 [History] Acetaminophen 325 mg PO Q8HR PRN 06/20/19 [History] Ibuprofen 400 mg PO Q8HR PRN 06/20/19 [History] Past Medical History HEENT History: Reports: Impaired Vision, Other (See Below) Other HEENT History: reading glasses Cardiovascular History: Reports: Afib, CAD, Hypertension, [place] Respiratory History: Reports: COPD, Intubation, Previous, Pneumonia, Recurrent, Pneumothorax, SOB Gastrointestinal History: Reports: None, Chronic Constipation Genitourinary History: Reports: None Musculoskeletal History: Reports: Arthritis, Back Pain, Chronic, Fracture Other Musculoskeletal History: fractured ribs, compression fractures(lumbar) Neurological History: Reports: CVA, Other (See Below) Other Neuro History: restless legs Psychiatric History: Reports: None Endocrine/Metabolic History: Reports: None Hematologic History: Reports: Anemia Other Hematologic History: myelodysplastic syndrome Immunologic History: Reports: None Oncologic (Cancer) History: Reports: Lung Other Oncologic History: skin Dermatologic History: Reports: Other (See Below) Other Dermatologic History: 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 - Infectious Disease History Other Infectious Disease History: pt cannot remember - Past Surgical History Head Surgeries/Procedures: Reports: None HEENT Surgical History: Reports: None Cardiovascular Surgical History: Reports: Carotid Stents, Other (See Below) Other Cardiovascular Surgeries/Procedures: cardiac stents Respiratory Surgical History: Reports: Lung Biopsies, Lung Resection, Thoracotomy, Other (See Below) Other Respiratory Surgeries/Procedures: right lower lobe resection(Sept 10th) GI Surgical History: Reports: Appendectomy Neurological Surgical History: Reports: None Musculoskeletal Surgical History: Reports: None Oncologic Surgical History: Reports: Lobectomy Dermatological Surgical History: Reports: None Social & Family History - Family History Family Medical History: Noncontributory - Tobacco Use Smoking Status *Q: Former Smoker Used Tobacco, but Quit: Yes Month/Year Tobacco Last Used: unknown - Caffeine Use Caffeine Use: Reports: Coffee - Recreational Drug Use Recreational Drug Use: No - Living Situation & Occupation Living situation: Reports: , with Spouse Occupation: Retired H&P Review of Systems - Review of Systems: Review Of Systems: See Below General: Reports: Fever, Malaise, Weakness HEENT: Reports: Other (icteric sclera). Denies: Dysphasia, Headaches, Sinus Congestion, Visual Changes Pulmonary: Reports: Shortness of Breath. Denies: Wheezing, Cough, Sputum Cardiovascular: Reports: Dyspnea on Exertion. Denies: Lightheadedness Gastrointestinal: Reports: Abdominal Pain. Denies: Distension, Nausea, Vomiting Genitourinary: Denies: Dysuria, Burning, Urgency, Flank Pain Musculoskeletal: Reports: Back Pain. Denies: Neck Pain, Leg Pain, Foot Pain Skin: Denies: Cyanosis, Jaundice, Change in Color Psychiatric: Denies: Confusion, Anxiety Neurological: Denies: Confusion, Numbness, Tremors Hematologic/Lymphatic: Reports: Anemia Immunologic: Reports: No Symptoms Exam - Exam Exam: See Below - Vital Signs Vital Signs: Last Vital Signs Temp 39.0 C H 08/14/19 13:30 Pulse 115 H 08/14/19 09:58 Resp 20 08/14/19 09:58 BP 134/101 H 08/14/19 09:58 Pulse Ox 93 L 08/14/19 10:20 Weight: 63.503 kg - Exam Quality Assessment: Supplemental Oxygen, DVT Prophylaxis. No: Urinary Catheter General: Alert, Oriented, Cooperative HEENT: EOMI, Hearing Intact, Mucosa Moist & [place], Scleral Icterus Neck: No: Lymphadenopathy, JVD, Thyromegaly Lungs: Clear to Auscultation, Normal Respiratory Effort, Crackles Cardiovascular: Irregular Rhythm, Systolic Murmur GI/Abdominal Exam: Normal Bowel Sounds, Soft. No: Guarding, Rigid, Rebound (Male) Exam: Deferred Rectal (Males) Exam: Deferred Back Exam: Normal Inspection Extremities: Normal Inspection, No Pedal Edema Skin: Warm, Dry, Intact Neurological: Cranial Nerves Intact Neuro Extensive - Mental Status: Alert, Oriented x3, Normal Mood/Affect, Normal Cognition, Memory Intact Neuro Extensive - Motor, Sensory, Reflexes: CN II-XII Intact Psychiatric: Alert, Normal Affect, Normal Mood - Patient Data Lab Results Last 24 hrs: Laboratory Results - last 24 hr 08/14/19 08/14/19 08/14/19 Range/Units 10:16 10:16 10:16 WBC 7.4 (5.0-10.0) 10^3/uL RBC 2.97 L (4.6-6.2) 10^6/uL Hgb 9.4 L (14.0-18.0) g/dL Hct 29.4 L (40.0-54.0) % MCV 99.0 D (80-100) fL MCH 31.6 (27.0-34.0) pg MCHC 32.0 L (33.0-35.0) g/dL Plt Count 166 (150-450) 10^3/uL Lymph % (Auto) 10.4 L (20.5-50.1) % [place] % (Auto) 13.0 H (2-8) % Eos % (Auto) 0.1 L (1.0-3.0) % Add Manual Diff Yes Neutrophils % (Manual) 62 (42-75) % Band Neutrophils % 9 % Lymphocytes % (Manual) 12 L (20-50) % Monocytes % (Manual) 11 H (2-8) % Metamyelocytes % 6 Hypochromasia 1+ slight Stomatocytes 1+ slight PT 11.5 (9.0-12.0) SEC INR 1.1 (0.9-1.2) Sodium 134 L (135-145) mmol/L Potassium 4.7 (3.6-5.0) mmol/L Chloride 97 L (101-111) mmol/L Carbon Dioxide 23.0 (21.0-31.0) mmol/L Anion Gap 18.7 BUN 23 H (7-18) mg/dL Creatinine 1.0 (0.6-1.3) mg/dL Est Cr Clr Drug Dosing 58.21 mL/min Estimated GFR (MDRD) > 60 BUN/Creatinine Ratio 23.00 Glucose 98 (74-105) mg/dL Lactic Acid (0.5-2.2) mmol/L Calcium 8.6 (8.4-10.2) mg/dl Total Bilirubin 5.5 H (0.2-1.0) mg/dL AST 113 H (10-42) IU/L ALT 79 H (10-60) IU/L Alkaline Phosphatase 151 H (42-121) IU/L Ammonia (11-35) umol/L Troponin I 0.05 H* (0.00-0.02) ng/ml B-Natriuretic Peptide 724 H (0-100) pg/ml Total Protein 7.4 (6.7-8.2) g/dl Albumin 4.0 (3.2-5.5) g/dl Globulin 3.4 Albumin/Globulin Ratio 1.18 Amylase 127 H (28-100) U/L Lipase 139 H (22-51) U/L Urine Color (YELLOW) Urine Appearance (CLEAR) Urine pH (5.0-9.0) Ur Specific [place] (1.005-1.030) Urine Protein (NEGATIVE) Urine Glucose (UA) (NEGATIVE) Urine Ketones (NEGATIVE) Urine Occult Blood (NEGATIVE) Urine Nitrite (NEGATIVE) Urine Bilirubin (NEGATIVE) Urine Urobilinogen (0.2-1.0) mg/dL Ur Leukocyte Esterase (NEGATIVE) Urine RBC /HPF Urine WBC (0-5/HPF) /HPF Ur Epithelial Cells (NOT SEEN) /HPF Urine Bacteria (0-FEW/HPF) /HPF 08/14/19 08/14/19 08/14/19 Range/Units 10:16 10:16 10:33 WBC (5.0-10.0) 10^3/uL RBC (4.6-6.2) 10^6/uL Hgb (14.0-18.0) g/dL Hct (40.0-54.0) % MCV (80-100) fL MCH (27.0-34.0) pg MCHC (33.0-35.0) g/dL Plt Count (150-450) 10^3/uL Lymph % (Auto) (20.5-50.1) % [place] % (Auto) (2-8) % Eos % (Auto) (1.0-3.0) % Add Manual Diff Neutrophils % (Manual) (42-75) % Band Neutrophils % % Lymphocytes % (Manual) (20-50) % Monocytes % (Manual) (2-8) % Metamyelocytes % Hypochromasia Stomatocytes PT (9.0-12.0) SEC INR (0.9-1.2) Sodium (135-145) mmol/L Potassium (3.6-5.0) mmol/L Chloride (101-111) mmol/L Carbon Dioxide (21.0-31.0) mmol/L Anion Gap BUN (7-18) mg/dL Creatinine (0.6-1.3) mg/dL Est Cr Clr Drug Dosing mL/min Estimated GFR (MDRD) BUN/Creatinine Ratio Glucose (74-105) mg/dL Lactic Acid 2.5 H (0.5-2.2) mmol/L Calcium (8.4-10.2) mg/dl Total Bilirubin (0.2-1.0) mg/dL AST (10-42) IU/L ALT (10-60) IU/L Alkaline Phosphatase (42-121) IU/L Ammonia 25 (11-35) umol/L Troponin I (0.00-0.02) ng/ml B-Natriuretic Peptide (0-100) pg/ml Total Protein (6.7-8.2) g/dl Albumin (3.2-5.5) g/dl Globulin Albumin/Globulin Ratio Amylase (28-100) U/L Lipase (22-51) U/L Urine Color Dark yellow (YELLOW) Urine Appearance Slightly cloudy (CLEAR) Urine pH 7.0 (5.0-9.0) Ur Specific [place] 1.020 (1.005-1.030) Urine Protein 30 H (NEGATIVE) Urine Glucose (UA) Negative (NEGATIVE) Urine Ketones Negative (NEGATIVE) Urine Occult Blood Negative (NEGATIVE) Urine Nitrite Negative (NEGATIVE) Urine Bilirubin Small H (NEGATIVE) Urine Urobilinogen 2.0 H (0.2-1.0) mg/dL Ur Leukocyte Esterase Negative (NEGATIVE) Urine RBC 0-5 /HPF Urine WBC 0-5 (0-5/HPF) /HPF Ur Epithelial Cells Rare (NOT SEEN) /HPF Urine Bacteria Rare (0-FEW/HPF) /HPF Result Diagrams: 08/14/19 10:16 08/14/19 10:16 [place] Results Last 24 hrs: Microbiology 08/14/19 10:26 Influenza Type A Antigen Screen - Final Nasal, Unspecified NEGATIVE INFLUENZA A VIRUS AG REFERENCE RANGE: NEGATIVE Influenza Type B Antigen Screen - Final NEGATIVE INFLUENZA B VIRUS AG REFERENCE RANGE: NEGATIVE - Problem List (1) Abnormal LFTs SNOMED Code(s): 047394574 ICD Code: R94.5 - ABNORMAL RESULTS OF LIVER FUNCTION STUDIES Status: Acute Current Visit: No (2) Anemia SNOMED Code(s): 378431017 ICD Code: D64.9 - ANEMIA, UNSPECIFIED Status: Acute Current Visit: No (3) Pneumonia SNOMED Code(s): 156181497 ICD Code: J18.9 - PNEUMONIA, UNSPECIFIED ORGANISM Status: Acute Current Visit: Yes Problem List Initiated/Reviewed/Updated: Yes Orders Last 24hrs: Active Orders 24 hr Category Date Time Status EKG Documentation Completion [RC] STAT Care 08/14/19 10:08 Active Peripheral IV Care [RC] . DIRECTED Care 08/14/19 10:09 Active Chest 1V Frontal [CR] Stat Exams 08/14/19 10:24 Taken CULTURE BLOOD [BC] Stat Lab 08/14/19 10:16 Received CULTURE BLOOD [BC] Stat Lab 08/14/19 10:46 Received Sodium Chloride 0.9% [Saline Flush] Med 08/14/19 10:08 Active 10 ml FLUSH ASDIRECTED PRN Blood Culture x2 Reflex Set [OM.PC] Stat Oth 08/14/19 10:12 Ordered Peripheral IV Insertion Adult [OM.PC] Stat Oth 08/14/19 10:08 Ordered Medication Orders Sodium Chloride (Saline Flush) 10 ml FLUSH ASDIRECTED PRN PRN Reason: Keep Vein Open Last Admin: 08/14/19 10:14 Dose: 10 ml Assessment/Plan Comment:: This is a 73 Y/O M with complicated medical problem admitted with elevated LFT, abdominal pain, likely right lower lobe pneumonia, S/P Biliary stent 07/04/19 Impression and Plan: 1. Elevated LEFT: Pt has history of common and pancreatic duct Dilatation and he is S/P Biliary stent placement by GI on 07/04/18 -It is not clear if there is any in-stent obstruction, tried to send to [facility] bur has no bed and also because of Bad weather fixed wing plane can not only fly -Tried to send to [place] but the GI doctor can not do ERCP or look into stent -Will keep him here and once the weather Improves then plan to transfer to [facility] -With history of Chronic pancreatitis and abdominal pain will keep him on clear liquid diet -CMP in AM 2. Lung Cancer: S/P VATS, RML and RLL lobectomy and CT showing right lung ( parenchymal) infiltrate -Will start him on IV zosyn -Will also get B/C X2 3. A-Fib: Rate controlled andv will continue Metoprolol and continue Apixaban for chronic anti-coagulation 4. COPD: there is no COPD exacerbation , continue home medication and Oxygen supplement 5. DVT prophylaxis: On anticoagulation Code status: Discussed Code status with pt and he is FULL CODE
[2019-08-14] MEDS ORDERED: Docusate Sodium 100 MG Cap PO PRN (14:46)
[2019-08-14] MEDS ORDERED: Piperacillin/Tazobactam 3.375 GM in Sodium Chloride 0.9% 100 ML IV SCH (15:00)
[2019-08-14] MEDS ORDERED: Albuterol/Ipratropium 3.0-0.5 MG/3 ML Neb Soln ONE (15:41)
[2019-08-14 15:54] VITALS: PULSE 84
[2019-08-14] MEDS ORDERED: Midazolam 1 MG/ML 2 ML SDV IVPUSH ONE (16:33)
--- NOTE | 2019-08-14 16:37 | PCM.DCSUM1 ---
Discharge Summary - Hospital Course Free Text/Narrative:: This is a 73 Y/O M with medical history of Lung cancer, S/P partial right lung resection,Patient subsequently developed empyema with pneumonia. Patient has been admitted multiple times to the hospital. post op status complicated by Empyema with pneumonia, and has received abx IV in swing bed. He had CT that showed dilation of CBD/PD, liver enzymes were elevated transferred back to [facility] evaluated by GI and had EUS with doppler aithout FNA. This showed dilated PD throughout the entire pancreas at 5-7 mm with some ectatic changes and wall thickening and non-shadowing debris. Pt had ERCP on 07/04/19 with billary stent placement and recommended stent removal in 2-[address] abd/pelvis 08/12/19 with contrast and the impression was: MPRESSION: 1. Small right pleural effusion with a parenchymal infiltrate at the right lung base with air bronchograms which may represent atelectasis although neoplasm and/or central obstruction not excluded. 2. Status post interval placement of an indwelling biliary stent. There is mild to moderate intrahepatic biliary ductal dilatation and dilatation of the common hepatic duct measuring 8 mm. The mid and distal common bile duct are not dilated. 3. Irregular enlargement of the pancreatic duct measuring up to 9 mm in the pancreatic neck, findings consistent with reported history of chronic pancreatitis. No pancreatic calcifications are demonstrated. 4. The gallbladder is hydropic with diffuse thickening of the gallbladder wall. No calculi or mass or demonstrated. Clinical correlation to exclude gallbladder inflammation suggested. 5. There is increased feces throughout the visualized colon consistent with constipation. Thank you for allowing us to participate in the care of your patient. Dictated and Authenticated by: Mike Rosario MD 08/12/2019 4:28 PM Central Time ([place] & [place]) After Admission to Medical floor within few hours his status deteriorated and his Respiratory status deteriorated and his Respiratory rate was 48 and oxygen saturation was 79% on 4 L, rapid response was called and was planning him to be intubated but with bagging of air his 02 sat stated to Improve and his Respiratory status Improved after staring him on BiPAP. Since he is better with BiPAP will not intubate him and he will be transferred to [facility]) for [place] Level of care. - Discharge Data Discharge Date: 08/14/19 Discharge Disposition: DC/Tfer to Acute Hospital 02 Condition: Good - Referral to Home Health Primary Care Physician: PCP Unobtainable - Discharge Diagnosis/Problem(s) (1) Abnormal LFTs SNOMED Code(s): 694784265 ICD Code: R94.5 - ABNORMAL RESULTS OF LIVER FUNCTION STUDIES Status: Acute Current Visit: No (2) Anemia SNOMED Code(s): 912043375 ICD Code: D64.9 - ANEMIA, UNSPECIFIED Status: Acute Current Visit: No (3) Pneumonia SNOMED Code(s): 781552768 ICD Code: J18.9 - PNEUMONIA, UNSPECIFIED ORGANISM Status: Acute Current Visit: Yes - Patient Instructions Diet: Heart Healthy Diet Activity: As Tolerated - Discharge Plan Home Medications: Home Meds Metoprolol Succinate [Toprol Xl] 50 mg PO DAILY 06/05/14 [History] Omeprazole 20 mg PO BID 06/05/14 [History] Multivitamins,Therapeutic [Thera] 1 each PO DAILY #30 tab 06/21/14 [Rx] Albuterol [Proventil HFA] 2 puff INH Q4H PRN 04/29/15 [History] Aspirin [Ecotrin EC] 81 mg PO DAILY 12/14/17 [History] atorvaSTATin Calcium [Atorvastatin Calcium] 10 mg PO DAILY 12/14/17 [History] Umeclidinium [place] [Incruse Ellipta*] 1 puff IN DAILY 05/04/19 [History] Albuterol/Ipratropium [DuoNeb 3.0-0.5 MG/3 ML] 3 ml INH QID 05/20/19 [History] Apixaban [Eliquis] 2.5 mg PO BID 05/20/19 [History] Budesonide [Pulmicort] 0.5 mg IH BID 05/20/19 [History] Fexofenadine HCl [Bronwyn Allergy] 60 mg PO DAILY 05/22/19 [History] Darbepoetin Chuy [Aranesp] 300 mcg SQ Q7D PRN 05/25/19 [History] Ascorbic Acid [Vitamin C with Anum Hips] 500 mg PO DAILY 06/02/19 [History] Furosemide [Lasix] 40 mg PO DAILY 06/02/19 [History] Lidocaine 5% [Lidoderm 5%] 700 mg TOP Q24H MDD 12 hours on, 12 hours off [History] Melatonin 3 mg PO BEDTIME PRN 06/02/19 [History] rOPINIRole [Requip] 4 mg PO Q4HR PRN 06/02/19 [History] traZODone HCl [Trazodone HCl] 50 mg PO BEDTIME 06/02/19 [History] Acetaminophen 325 mg PO Q4H PRN 06/20/19 [History] Ibuprofen 400 mg PO Q8HR PRN 06/20/19 [History] Oxygen Therapy Mode: BiPAP Forms: ED Department Discharge Referrals: PCP,Unobtain [Primary Care Provider] - - Discharge Summary/Plan Comment DC Time >30 min.: Yes Discharge Summary/Plan Comment: This is a 73 Y/O M with complicated medical problem admitted with elevated LFT, abdominal pain, likely right lower lobe pneumonia, S/P Biliary stent 07/04/19 Impression and Plan: 1. Elevated LEFT: Pt has history of common and pancreatic duct Dilatation and he is S/P Biliary stent placement by GI on 07/04/18 -It is not clear if there is any in-stent obstruction, tried to send to [facility] bur has no bed and also because of Bad weather fixed wing plane can not only fly -Tried to send to [place] but the GI doctor can not do ERCP or look into stent -Will keep him here and once the weather Improves then plan to transfer to [facility] -With history of Chronic pancreatitis and abdominal pain will keep him on clear liquid diet -CMP in AM 2. Lung Cancer: S/P VATS, RML and RLL lobectomy and CT showing right lung ( parenchymal) infiltrate -Will continue him on IV zosyn -Will also get B/C X2 3. A-Fib: Rate controlled and will continue Metoprolol and continue Apixaban for chronic anti-coagulation 4. COPD: there is no COPD exacerbation , continue home medication and Oxygen supplement and nebulization Treatment 5. DVT prophylaxis: On anticoagulation 6. Acute Hypoxic Respiratory Failure: Pt developed Respiratory distress and stated to have labored breathing, rapid response was called for Intubation but he did with bagging and placed on BiPAP -He will be transferred to [place] ( [facility]) for higher level of care Code status: Discussed Code status with pt and he is FULL CODE - General Info Date of Service: 08/14/19 Admission Dx/Problem (Free Text: Admitted with : Abdominal pain, Elevated LFT Subjective Update: Pt went into respiratory failure and now on BiPAP doing better, he will be transferred to [place] ( [facility]) Functional Status: Reports: Pain Controlled, Urinating - Review of Systems General: Reports: Weakness, Appetite (Poor). Denies: Fever, Chills HEENT: Denies: Dysphasia, Headaches, Sinus Congestion, Visual Changes Pulmonary: Reports: Shortness of Breath. Denies: Sputum, Wheezing Cardiovascular: Denies: Chest Pain, Edema Genitourinary: Denies: Dysuria, Burning, Urgency Musculoskeletal: Reports: Neck Pain. Denies: Leg Pain, Joint Swelling Skin: Reports: Jaundice. Denies: Bruising, Pruritis, Rash Neurological: Denies: Confusion, Numbness, Tremors Psychiatric: Reports: No Symptoms - Patient Data Vitals - Most Recent: Last Vital Signs Temp 38.8 C H 08/14/19 14:20 Pulse 84 08/14/19 15:49 Resp 22 H 08/14/19 14:20 BP 104/50 L 08/14/19 14:20 Pulse Ox 84 L 08/14/19 15:54 Weight - Most Recent: 63.503 kg Lab Results - Last 24 hrs: Laboratory Results - last 24 hr 08/14/19 08/14/19 08/14/19 Range/Units 10:16 10:16 10:16 WBC 7.4 (5.0-10.0) 10^3/uL RBC 2.97 L (4.6-6.2) 10^6/uL Hgb 9.4 L (14.0-18.0) g/dL Hct 29.4 L (40.0-54.0) % MCV 99.0 D (80-100) fL MCH 31.6 (27.0-34.0) pg MCHC 32.0 L (33.0-35.0) g/dL Plt Count 166 (150-450) 10^3/uL Lymph % (Auto) 10.4 L (20.5-50.1) % Collin % (Auto) 13.0 H (2-8) % Eos % (Auto) 0.1 L (1.0-3.0) % Add Manual Diff Yes Neutrophils % (Manual) 62 (42-75) % Band Neutrophils % 9 % Lymphocytes % (Manual) 12 L (20-50) % Monocytes % (Manual) 11 H (2-8) % Metamyelocytes % 6 Hypochromasia 1+ slight Stomatocytes 1+ slight PT 11.5 (9.0-12.0) SEC INR 1.1 (0.9-1.2) Sodium 134 L (135-145) mmol/L Potassium 4.7 (3.6-5.0) mmol/L Chloride 97 L (101-111) mmol/L Carbon Dioxide 23.0 (21.0-31.0) mmol/L Anion Gap 18.7 BUN 23 H (7-18) mg/dL Creatinine 1.0 (0.6-1.3) mg/dL Est Cr Clr Drug Dosing 58.21 mL/min Estimated GFR (MDRD) > 60 BUN/Creatinine Ratio 23.00 Glucose 98 (74-105) mg/dL Lactic Acid (0.5-2.2) mmol/L Calcium 8.6 (8.4-10.2) mg/dl Total Bilirubin 5.5 H (0.2-1.0) mg/dL AST 113 H (10-42) IU/L ALT 79 H (10-60) IU/L Alkaline Phosphatase 151 H (42-121) IU/L Ammonia (11-35) umol/L Troponin I 0.05 H* (0.00-0.02) ng/ml B-Natriuretic Peptide 724 H (0-100) pg/ml Total Protein 7.4 (6.7-8.2) g/dl Albumin 4.0 (3.2-5.5) g/dl Globulin 3.4 Albumin/Globulin Ratio 1.18 Amylase 127 H (28-100) U/L Lipase 139 H (22-51) U/L Urine Color (YELLOW) Urine Appearance (CLEAR) Urine pH (5.0-9.0) Ur Specific Boles (1.005-1.030) Urine Protein (NEGATIVE) Urine Glucose (UA) (NEGATIVE) Urine Ketones (NEGATIVE) Urine Occult Blood (NEGATIVE) Urine Nitrite (NEGATIVE) Urine Bilirubin (NEGATIVE) Urine Urobilinogen (0.2-1.0) mg/dL Ur Leukocyte Esterase (NEGATIVE) Urine RBC /HPF Urine WBC (0-5/HPF) /HPF Ur Epithelial Cells (NOT SEEN) /HPF Urine Bacteria (0-FEW/HPF) /HPF 08/14/19 08/14/19 08/14/19 Range/Units 10:16 10:16 10:33 WBC (5.0-10.0) 10^3/uL RBC (4.6-6.2) 10^6/uL Hgb (14.0-18.0) g/dL Hct (40.0-54.0) % MCV (80-100) fL MCH (27.0-34.0) pg MCHC (33.0-35.0) g/dL Plt Count (150-450) 10^3/uL Lymph % (Auto) (20.5-50.1) % Collin % (Auto) (2-8) % Eos % (Auto) (1.0-3.0) % Add Manual Diff Neutrophils % (Manual) (42-75) % Band Neutrophils % % Lymphocytes % (Manual) (20-50) % Monocytes % (Manual) (2-8) % Metamyelocytes % Hypochromasia Stomatocytes PT (9.0-12.0) SEC INR (0.9-1.2) Sodium (135-145) mmol/L Potassium (3.6-5.0) mmol/L Chloride (101-111) mmol/L Carbon Dioxide (21.0-31.0) mmol/L Anion Gap BUN (7-18) mg/dL Creatinine (0.6-1.3) mg/dL Est Cr Clr Drug Dosing mL/min Estimated GFR (MDRD) BUN/Creatinine Ratio Glucose (74-105) mg/dL Lactic Acid 2.5 H (0.5-2.2) mmol/L Calcium (8.4-10.2) mg/dl Total Bilirubin (0.2-1.0) mg/dL AST (10-42) IU/L ALT (10-60) IU/L Alkaline Phosphatase (42-121) IU/L Ammonia 25 (11-35) umol/L Troponin I (0.00-0.02) ng/ml B-Natriuretic Peptide (0-100) pg/ml Total Protein (6.7-8.2) g/dl Albumin (3.2-5.5) g/dl Globulin Albumin/Globulin Ratio Amylase (28-100) U/L Lipase (22-51) U/L Urine Color Dark yellow (YELLOW) Urine Appearance Slightly cloudy (CLEAR) Urine pH 7.0 (5.0-9.0) Ur Specific Boles 1.020 (1.005-1.030) Urine Protein 30 H (NEGATIVE) Urine Glucose (UA) Negative (NEGATIVE) Urine Ketones Negative (NEGATIVE) Urine Occult Blood Negative (NEGATIVE) Urine Nitrite Negative (NEGATIVE) Urine Bilirubin Small H (NEGATIVE) Urine Urobilinogen 2.0 H (0.2-1.0) mg/dL Ur Leukocyte Esterase Negative (NEGATIVE) Urine RBC 0-5 /HPF Urine WBC 0-5 (0-5/HPF) /HPF Ur Epithelial Cells Rare (NOT SEEN) /HPF Urine Bacteria Rare (0-FEW/HPF) /HPF LAINEY Results - Last 24 hrs: Microbiology 08/14/19 10:26 Influenza Type A Antigen Screen - Final Nasal, Unspecified NEGATIVE INFLUENZA A VIRUS AG REFERENCE RANGE: NEGATIVE Influenza Type B Antigen Screen - Final NEGATIVE INFLUENZA B VIRUS AG REFERENCE RANGE: NEGATIVE Med Orders - Current: Current Medications Docusate Sodium (Colace) 100 mg PO DAILY PRN PRN Reason: Constipation Piperacillin Sod/Tazobactam (Sod 3.375 gm/ Sodium Chloride) 100 mls @ 200 mls/ hr IV Q6H JOE Sodium Chloride (Saline Flush) 10 ml FLUSH ASDIRECTED PRN PRN Reason: Keep Vein Open Last Admin: 08/14/19 10:14 Dose: 10 ml Discontinued Medications Acetaminophen (Tylenol) 650 mg PO NOW ONE Stop: 08/14/19 12:45 Last Admin: 08/14/19 12:48 Dose: 650 mg Albuterol/Ipratropium (Duoneb 3.0-0.5 Mg/3 Ml) Confirm Administered Dose 3 ml .ROUTE .STK-MED ONE Stop: 08/14/19 15:42 - Exam Quality Assessment: Reports: Supplemental Oxygen (on BiPAP), Urine Catheter, DVT Prophylaxis General: Reports: Alert, Oriented, Cooperative, Moderate Distress HEENT: Reports: Pupils Equal, Mucous Membr. Moist/[place], Scleral Icterus Neck: Reports: No JVD, No Thyromegaly. Denies: Lymphadenopathy Lungs: Reports: Clear to Auscultation, Normal Respiratory Effort Cardiovascular: Reports: Irregular Rhythm, Murmurs GI/Abdominal Exam: Normal Bowel Sounds, Non-Tender, No Organomegaly, No Distention. No: Guarding, Rigid, Rebound (Male) Exam: Deferred Rectal (Males) Exam: Deferred Back Exam: Reports: Normal Inspection Extremities: Normal Inspection, No Pedal Edema Skin: Reports: Warm, Dry, Intact Neurological: Reports: No New Focal Deficit Psy/Mental Status: Reports: Alert, Normal Affect, Normal Mood
[2019-08-14 16:42] VITALS: BP 135/119
[2019-08-14 18:05] LABS: BASE EXCESS ARTERIAL -7 mmol/L ((-2)-(+3)); BICARBONATE,ARTERIAL 16.6 mmol/L (22-26); O2 DELIVERY DEVICE NASAL CANNULA; O2 SATURATION ARTERIAL 89 % (95-100); PCO2 ARTERIAL 26 mmHg (35-45); PO2 ARTERIAL 58 mmHg (70-100)
== END 2019-08-14 16:45 | DRG 193 ==
LOC: DL.ED 09:54 → DL.MS 13:45 → UNDOADMIN 13:45 → DL.MS 14:46
PROVIDERS: ADMIT Internal Medicine Nephrology; ATTEND Internal Medicine Nephrology
PROC: 5A09357 Assistance with Respiratory Ventilation, Less than 24 Consecutive Hours, Continuous Positive Airway Pressure (ICD-10-PCS; principal; 2019-08-14)
DX: R06.02 Shortness of breath (principal); I21.4 Non-ST elevation (NSTEMI) myocardial infarction; R06.03 Acute respiratory distress; J18.9 Pneumonia, unspecified organism; J96.01 Acute respiratory failure with hypoxia; J44.0 Chronic obstructive pulmonary disease with (acute) lower respiratory infection; Z79.82 Long term (current) use of aspirin; Z79.51 Long term (current) use of inhaled steroids; Z79.52 Long term (current) use of systemic steroids; R79.89 Other specified abnormal findings of blood chemistry; H54.7 Unspecified visual loss; I48.91 Unspecified atrial fibrillation; D64.9 Anemia, unspecified; I10 Essential (primary) hypertension; I25.10 Atherosclerotic heart disease of native coronary artery without angina pectoris; K59.09 Other constipation; Z99.81 Dependence on supplemental oxygen; M19.90 Unspecified osteoarthritis, unspecified site; Z85.118 Personal history of other malignant neoplasm of bronchus and lung; G89.29 Other chronic pain; M54.9 Dorsalgia, unspecified; Z79.01 Long term (current) use of anticoagulants; G25.81 Restless legs syndrome; D46.9 Myelodysplastic syndrome, unspecified; Z85.828 Personal history of other malignant neoplasm of skin; Z79.899 Other long term (current) drug therapy; Z91.030 Bee allergy status; Z88.8 Allergy status to other drugs, medicaments and biological substances; I25.2 Old myocardial infarction; Z86.73 Personal history of transient ischemic attack (TIA), and cerebral infarction without residual deficits; Z87.891 Personal history of nicotine dependence
CPT/HCPCS: 36415; 71045; 80053; 81001; 82140; 82150; 83605; 83690; 83880; 84484; 85025; 85610; 87040 ×2; 87077; 87186; 87804 ×2; 93005; 99285; A9270; 36600; 82550; 82553; 82803; 94640; 94660

== ENCOUNTER 2019-08-29 11:51 | Inpatient (IN) | payer MEDICARE, BC ==
[2019-08-29 12:45] LABS: ANION GAP 15.5; CHLORIDE,CL 102 mmol/L (101-111); SODIUM,NA 139 mmol/L (135-145)
--- NOTE | 2019-08-29 12:59 | EDM.PDOC ---
ED HPI GENERAL MEDICAL PROBLEM - General Chief Complaint: Respiratory Problem Stated Complaint: COMING FROM CLINIC Time Seen by Provider: 08/29/19 12:45 Source of Information: Reports: Patient History Limitations: Reports: No Limitations - History of Present Illness INITIAL COMMENTS - FREE TEXT/NARRATIVE: This 73 yo male patient was sent to the ED from [facility] due to increased shortness of breath. The patient reports he was sent to [place] on 08/14/19 due to pneumonia and a possible heart attack. The patient was discharged from [place] on antibiotics, but started to have a possible reaction to the medication. The patient's antibiotic was changed at that time to Levaquin (08/22/19). The patient did not start taking the medication until 08/25/19 due to having a stent placed on 08/25/19 in his pancreas. Since starting the antibiotics and steroids, the patient has not been feeling any better. The patient reports increased shortness of breath and increased difficulties breathing. The patient reports his home oxygen levels have been near 78%. The patient reported to the clinic with oxygen on 3 lpm and an oxygen sat of 84%. No further work-up was done in the clinic. Onset Date: 08/25/19 Duration: Constant, Getting Worse Location: Reports: Chest Quality: Reports: Other Severity: Moderate Improves with: Reports: Rest Worsens with: Reports: Movement Context: Reports: Other Associated Symptoms: Reports: Cough, Shortness of Breath, Weakness (progressive) - Related Data Allergies Allergy/AdvReac Type Severity Reaction Status Date / Time bee venom protein (honey bee) Allergy Facial Verified 08/29/19 12:26 Swelling naproxen [From Naprosyn] Allergy Swelling Verified 08/29/19 12:26 gabapentin AdvReac Cannot Verified 08/29/19 12:26 Remember pregabalin [From Lyrica] AdvReac Excitabilit Verified 08/29/19 12:26 y Home Meds: Home Meds Metoprolol Succinate [Toprol Xl] 50 mg PO DAILY 06/05/14 [History] Omeprazole 20 mg PO BID 06/05/14 [History] Albuterol [Proventil HFA] 2 puff INH Q4H PRN 04/29/15 [History] Aspirin [Ecotrin EC] 81 mg PO DAILY 12/14/17 [History] Umeclidinium [place] [Incruse Ellipta*] 1 puff IN DAILY 05/04/19 [History] Albuterol/Ipratropium [DuoNeb 3.0-0.5 MG/3 ML] 3 ml INH QID 05/20/19 [History] Apixaban [Eliquis] 2.5 mg PO BID 05/20/19 [History] Budesonide [Pulmicort] 0.5 mg IH BID 05/20/19 [History] Fexofenadine HCl [Bronwyn Allergy] 60 mg PO DAILY 05/22/19 [History] Darbepoetin Chuy [Aranesp] 300 mcg SQ Q7D PRN 05/25/19 [History] Ascorbic Acid [Vitamin C with Anum Hips] 500 mg PO DAILY 06/02/19 [History] Furosemide [Lasix] 40 mg PO DAILY 06/02/19 [History] Lidocaine 5% [Lidoderm 5%] 700 mg TOP Q24H MDD 12 hours on, 12 hours off [History] rOPINIRole [Requip] 4 mg PO Q4HR PRN 06/02/19 [History] Acetaminophen 325 mg PO Q4H PRN 06/20/19 [History] Ibuprofen 400 mg PO Q8HR PRN 06/20/19 [History] Levofloxacin [Levaquin] 500 mg PO DAILY 08/29/19 [History] predniSONE 20 mg PO DAILY 08/29/19 [History] Past Medical History HEENT History: Reports: Impaired Vision, Other (See Below) Other HEENT History: reading glasses Cardiovascular History: Reports: Afib, CAD, Hypertension, [place] Respiratory History: Reports: COPD, Intubation, Previous, Pneumonia, Recurrent, Pneumothorax, SOB Gastrointestinal History: Reports: None, Chronic Constipation Genitourinary History: Reports: None Musculoskeletal History: Reports: Arthritis, Back Pain, Chronic, Fracture Other Musculoskeletal History: fractured ribs, compression fractures(lumbar) Neurological History: Reports: CVA, Other (See Below) Other Neuro History: restless legs Psychiatric History: Reports: None Endocrine/Metabolic History: Reports: None Hematologic History: Reports: Anemia Other Hematologic History: myelodysplastic syndrome Immunologic History: Reports: None Oncologic (Cancer) History: Reports: Lung Other Oncologic History: skin Dermatologic History: Reports: Other (See Below) Other Dermatologic History: 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 - Infectious Disease History Infectious Disease History: Reports: None Other Infectious Disease History: pt cannot remember - Past Surgical History Head Surgeries/Procedures: Reports: None HEENT Surgical History: Reports: None Cardiovascular Surgical History: Reports: Carotid Stents, Other (See Below) Other Cardiovascular Surgeries/Procedures: cardiac stents Respiratory Surgical History: Reports: Lung Biopsies, Lung Resection, Thoracotomy, Other (See Below) Other Respiratory Surgeries/Procedures: right lower lobe resection(Sept 10th) GI Surgical History: Reports: Appendectomy Neurological Surgical History: Reports: None Musculoskeletal Surgical History: Reports: None Oncologic Surgical History: Reports: Lobectomy Dermatological Surgical History: Reports: None Social & Family History - Family History Family Medical History: Noncontributory - Caffeine Use Caffeine Use: Reports: Coffee - Living Situation & Occupation Living situation: Reports: , with Spouse Occupation: Retired ED ROS GENERAL - Review of Systems Review Of Systems: Comprehensive ROS is negative, except as noted in HPI. ED EXAM, GENERAL - Physical Exam Exam: See Below Exam Limited By: No Limitations General Appearance: Alert, WD/WN, Moderate Distress Eye Exam: Bilateral Eye: EOMI, Normal Inspection, PERRL Ears: Normal External Exam, Normal Canal, Hearing Grossly Normal, Normal TMs Nose: Normal Inspection, Normal Mucosa, No Blood Throat/Mouth: Normal Inspection, Normal Lips, Normal Teeth, Normal Gums, Normal Oropharynx, Normal Voice, No Airway Compromise Head: Atraumatic, Normocephalic Neck: Normal Inspection, Supple, Non-Tender, Full Range of Motion Respiratory/Chest: No Respiratory Distress, Rhonchi (diffuse throughout), Other (absent lung sounds in right lower lobe) Cardiovascular: Normal Peripheral Pulses, Regular Rate, Rhythm, No Edema, No Gallop, No JVD, No Murmur, No Rub GI/Abdominal: Normal Bowel Sounds, Soft, Non-Tender, No Organomegaly, No Distention, No Abnormal Bruit, No Mass (Male) Exam: Deferred Rectal (Males) Exam: Deferred Back Exam: Normal Inspection, Full Range of Motion, NT Extremities: Normal Inspection, Normal Range of Motion, Non-Tender, Normal Capillary Refill, No Pedal Edema Neurological: Alert, Oriented, CN II-XII Intact, Normal Cognition, Normal Gait, Normal Reflexes, No Motor/Sensory Deficits Psychiatric: Normal Affect, Normal Mood Skin Exam: Warm, Dry, Intact, Normal Color, No Rash Lymphatic: No Adenopathy Course - Vital Signs Last Recorded V/S: Last Vital Signs Temp 37.3 C 08/29/19 12:05 Pulse 92 08/29/19 12:05 Resp 28 H 08/29/19 12:05 BP 118/72 08/29/19 12:05 Pulse Ox 92 L 08/29/19 12:05 - Orders/Labs/Meds Orders: Active Orders 24 hr Category Date Time Status Admission Diagnosis [ADT] Urgent ADT 08/29/19 13:13 Ordered Admission Status [Patient Status] [ADT] Routine ADT 08/29/19 13:13 Ordered EKG Documentation Completion [RC] URGENT Care 08/29/19 12:08 Active CBC WITH AUTO DIFF [HEME] Urgent Lab 08/29/19 12:20 Results D-DIMER QUANTITATIVE [COAG] Stat Lab 08/29/19 12:20 Received MANUAL DIFFERENTIAL QA/NC [HEME] Urgent Lab 08/29/19 12:20 Results Vancomycin 1 gm Med 08/29/19 13:14 Ordered Sodium Chloride 0.9% [Normal Saline] 250 ml IV ONETIME Labs: Laboratory Tests 08/29/19 08/29/19 08/29/19 Range/Units 12:20 12:20 12:20 WBC 16.7 H (5.0-10.0) 10^3/uL RBC 2.61 L (4.6-6.2) 10^6/uL Hgb 8.4 L (14.0-18.0) g/dL Hct 27.0 L (40.0-54.0) % MCV 103.4 H D (80-100) fL MCH 32.2 (27.0-34.0) pg MCHC 31.1 L (33.0-35.0) g/dL Plt Count 238 (150-450) 10^3/uL Lymph % (Auto) 11.6 L (20.5-50.1) % [place]ift % (Auto) 9.7 H (2-8) % Eos % (Auto) 0.1 L (1.0-3.0) % Add Manual Diff Yes Sodium 139 (135-145) mmol/L Potassium 4.5 (3.6-5.0) mmol/L Chloride 102 (101-111) mmol/L Carbon Dioxide 26.0 (21.0-31.0) mmol/L Anion Gap 15.5 BUN 29 H (7-18) mg/dL Creatinine 1.1 (0.6-1.3) mg/dL Est Cr Clr Drug Dosing TNP Estimated GFR (MDRD) > 60 BUN/Creatinine Ratio 26.36 Glucose 109 H (74-105) mg/dL Calcium 8.4 (8.4-10.2) mg/dl Total Bilirubin 4.8 H (0.2-1.0) mg/dL AST 40 (10-42) IU/L ALT 62 H (10-60) IU/L Alkaline Phosphatase 253 H (42-121) IU/L Troponin I 0.06 H* (0.00-0.02) ng/ml B-Natriuretic Peptide 1620 H (0-100) pg/ml Total Protein 6.9 (6.7-8.2) g/dl Albumin 3.4 (3.2-5.5) g/dl Globulin 3.5 Albumin/Globulin Ratio 0.97 Departure - Departure Time of Disposition: 13:17 Disposition: Admitted As Inpatient 65 Condition: Fair Clinical Impression: Pneumonia Qualifiers: Pneumonia type: due to unspecified organism Laterality: right Lung location: unspecified part of lung Qualified Code(s): J18.9 - Pneumonia, unspecified organism - Discharge Information *PRESCRIPTION DRUG MONITORING PROGRAM REVIEWED*: Not Applicable *COPY OF PRESCRIPTION DRUG MONITORING REPORT IN PATIENT JIL: Not Applicable Instructions: Community-Acquired Pneumonia, Adult, [id number] Forms: ED Department Discharge Care Plan Goals: Discussed the patient's history, examination, lab and x-ray results with Dr. Melton. Dr. Melton accepted the patient for continued evaluation and further management as an inpatient at [facility]. Sepsis Event Note - Focused Exam Vital Signs: Vital Signs Temp Pulse Resp BP Pulse Ox 08/29/19 12:05 37.3 C 92 28 H 118/72 92 L Date Exam was Performed: 08/29/19 Time Exam was Performed: 13:17 - My Orders Last 24 Hours: My Active Orders 08/29/19 12:08 EKG Documentation Completion [RC] URGENT 08/29/19 12:20 CBC WITH AUTO DIFF [HEME] Urgent D-DIMER QUANTITATIVE [COAG] Stat MANUAL DIFFERENTIAL QA/NC [HEME] Urgent 08/29/19 13:13 Admission Diagnosis [ADT] Urgent Admission Status [Patient Status] [ADT] Routine 08/29/19 13:14 Vancomycin 1 gm Sodium Chloride 0.9% [Normal Saline] 250 ml IV ONETIME - Assessment/Plan Last 24 Hours: My Active Orders 08/29/19 12:08 EKG Documentation Completion [RC] URGENT 08/29/19 12:20 CBC WITH AUTO DIFF [HEME] Urgent D-DIMER QUANTITATIVE [COAG] Stat MANUAL DIFFERENTIAL QA/NC [HEME] Urgent 08/29/19 13:13 Admission Diagnosis [ADT] Urgent Admission Status [Patient Status] [ADT] Routine 08/29/19 13:14 Vancomycin 1 gm Sodium Chloride 0.9% [Normal Saline] 250 ml IV ONETIME
[2019-08-29] MEDS ORDERED: Albuterol/Ipratropium 3.0-0.5 MG/3 ML Neb Soln NEB PRN (14:25)
[2019-08-29] MEDS ORDERED: Docusate Sodium 100 MG Cap PO PRN (14:27)
[2019-08-29] MEDS ORDERED: Ondansetron 4 MG Tab.DIS PO PRN (14:27)
[2019-08-29] MEDS ORDERED: Temazepam 15 MG Cap PO PRN (14:27)
--- NOTE | 2019-08-29 14:35 | PCM.HP ---
H&P History of Present Illness - General Date of Service: 08/29/19 Admit Problem/Dx: Admission Diagnosis/Problem Admission Diagnosis/Problem shortness of breath Source of Information: Patient, Family, Old Records ([facility]) - History of Present Illness Initial Comments - Free Text/Narative: 73-year-old with a history of paroxysmal atrial fibrillation, lung cancer status post right lung resection, History of biliary duct stricture status post stenting. About 2 weeks prior to this admission the patient presented with shortness of breath. He was found to have acute non-ST elevation myocardial infarction and pneumonia. From the [place] [facility] he was transferred to [facility]. He spent a few days in hospital. Was treated for acute congestive heart failure with diuretics as well. He was discharged on Augmentin and steroids. He developed itching and Augmentin was stopped. He was noted to have significant icterus. On 24 August the patient underwent biliary stent replacement. His icterus significantly improved. Was resumed on levofloxacin for antibiotic. In the past 3 days prior to admission the patient was increasingly short of breath, shortness of breath not associated chest pain but worse with activity better with rest. Has cough with minimal sputum production. No associated fever. Has significant leg swelling. - Related Data Allergies/Adverse Reactions: Allergies Allergy/AdvReac Type Severity Reaction Status Date / Time amoxicillin [From Augmentin] Allergy Itching Verified 08/29/19 14:28 bee venom protein (honey bee) Allergy Facial Verified 08/29/19 14:26 Swelling clavulanic acid Allergy Itching Verified 08/29/19 14:28 [From Augmentin] naproxen [From Naprosyn] Allergy Swelling Verified 08/29/19 14:26 gabapentin AdvReac Cannot Verified 08/29/19 14:26 Remember pregabalin [From Lyrica] AdvReac Excitabilit Verified 08/29/19 14:26 y Home Medications: Home Meds Metoprolol Succinate [Toprol Xl] 50 mg PO DAILY 06/05/14 [History] Omeprazole 20 mg PO BID 06/05/14 [History] Albuterol [Proventil HFA] 2 puff INH Q4H PRN 04/29/15 [History] Aspirin [Ecotrin EC] 81 mg PO DAILY 12/14/17 [History] Umeclidinium Mcbee [Incruse Ellipta*] 1 puff IN DAILY 05/04/19 [History] Albuterol/Ipratropium [DuoNeb 3.0-0.5 MG/3 ML] 3 ml INH QID 05/20/19 [History] Apixaban [Eliquis] 2.5 mg PO BID 05/20/19 [History] Budesonide [Pulmicort] 0.5 mg IH BID 05/20/19 [History] Fexofenadine HCl [Bronwyn Allergy] 60 mg PO DAILY 05/22/19 [History] Darbepoetin Chuy [Aranesp] 300 mcg SQ Q7D PRN 05/25/19 [History] Ascorbic Acid [Vitamin C with Anum Hips] 500 mg PO DAILY 06/02/19 [History] Furosemide [Lasix] 40 mg PO DAILY 06/02/19 [History] Lidocaine 5% [Lidoderm 5%] 700 mg TOP Q24H MDD 12 hours on, 12 hours off [History] rOPINIRole [Requip] 4 mg PO Q4HR PRN 06/02/19 [History] Acetaminophen 325 mg PO Q4H PRN 06/20/19 [History] Acetaminophen [Tylenol Extra Strength] 500 mg PO Q8H PRN 08/29/19 [History] Levofloxacin [Levaquin] 500 mg PO DAILY 08/29/19 [History] predniSONE 20 mg PO DAILY 08/29/19 [History] Past Medical History HEENT History: Reports: Impaired Vision, Other (See Below) Other HEENT History: reading glasses Cardiovascular History: Reports: Afib, CAD, Hypertension, [place] Respiratory History: Reports: COPD, Intubation, Previous, Pneumonia, Recurrent, Pneumothorax, SOB Gastrointestinal History: Reports: None, Chronic Constipation Genitourinary History: Reports: None Musculoskeletal History: Reports: Arthritis, Back Pain, Chronic, Fracture Other Musculoskeletal History: fractured ribs, compression fractures(lumbar) Neurological History: Reports: CVA, Other (See Below) Other Neuro History: restless legs Psychiatric History: Reports: None Endocrine/Metabolic History: Reports: None Hematologic History: Reports: Anemia Other Hematologic History: myelodysplastic syndrome Immunologic History: Reports: None Oncologic (Cancer) History: Reports: Lung Other Oncologic History: skin Dermatologic History: Reports: Other (See Below) Other Dermatologic History: 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 - Infectious Disease History Infectious Disease History: Reports: None Other Infectious Disease History: pt cannot remember - Past Surgical History Head Surgeries/Procedures: Reports: None HEENT Surgical History: Reports: None Cardiovascular Surgical History: Reports: Carotid Stents, Other (See Below) Other Cardiovascular Surgeries/Procedures: cardiac stents Respiratory Surgical History: Reports: Lung Biopsies, Lung Resection, Thoracotomy, Other (See Below) Other Respiratory Surgeries/Procedures: right lower lobe resection(Sept 10th) GI Surgical History: Reports: Appendectomy Neurological Surgical History: Reports: None Musculoskeletal Surgical History: Reports: None Oncologic Surgical History: Reports: Lobectomy Dermatological Surgical History: Reports: None Social & Family History - Family History Family Medical History: Noncontributory - Tobacco Use Smoking Status *Q: Former Smoker Used Tobacco, but Quit: Yes Month/Year Tobacco Last Used: 2018 - Caffeine Use Caffeine Use: Reports: Coffee - Recreational Drug Use Recreational Drug Use: No - Living Situation & Occupation Living situation: Reports: , with Spouse Occupation: Retired H&P Review of Systems - Review of Systems: Review Of Systems: See Below General: Reports: Malaise, Weakness. Denies: Fever, Chills Pulmonary: Reports: Shortness of Breath, Cough, Sputum. Denies: Wheezing, Pleuritic Chest Pain, Hemoptysis Cardiovascular: Reports: Edema. Denies: Chest Pain Gastrointestinal: Denies: Abdominal Pain Neurological: Denies: Confusion Exam - Exam Exam: See Below - Vital Signs Vital Signs: Last Vital Signs Temp 37.3 C 08/29/19 12:05 Pulse 92 08/29/19 12:05 Resp 28 H 08/29/19 12:05 BP 118/72 08/29/19 12:05 Pulse Ox 92 L 08/29/19 12:05 Weight: 58.967 kg - Exam Quality Assessment: Supplemental Oxygen General: Alert, Oriented Neck: Supple Lungs: Decreased Breath Sounds, Rhonchi (Left sided). No: Wheezing Cardiovascular: Regular Rate, Regular Rhythm Extremities: Pedal Edema (1+ bilateral) Skin: Warm, Dry Neuro Extensive - Mental Status: Alert, Oriented x3 - Patient Data Lab Results Last 24 hrs: Laboratory Results - last 24 hr 08/29/19 08/29/19 08/29/19 Range/Units 12:20 12:20 12:20 WBC 16.7 H (5.0-10.0) 10^3/uL RBC 2.61 L (4.6-6.2) 10^6/uL Hgb 8.4 L (14.0-18.0) g/dL Hct 27.0 L (40.0-54.0) % MCV 103.4 H D (80-100) fL MCH 32.2 (27.0-34.0) pg MCHC 31.1 L (33.0-35.0) g/dL Plt Count 238 (150-450) 10^3/uL Lymph % (Auto) 11.6 L (20.5-50.1) % Pershing % (Auto) 9.7 H (2-8) % Eos % (Auto) 0.1 L (1.0-3.0) % Add Manual Diff Yes Neutrophils % (Manual) 69 (42-75) % Band Neutrophils % 5 % Lymphocytes % (Manual) 17 L (20-50) % Monocytes % (Manual) 8 (2-8) % Eosinophils % (Manual) 1 (1-3) % D-Dimer, Quantitative (0-400) ng/mL Sodium 139 (135-145) mmol/L Potassium 4.5 (3.6-5.0) mmol/L Chloride 102 (101-111) mmol/L Carbon Dioxide 26.0 (21.0-31.0) mmol/L Anion Gap 15.5 BUN 29 H (7-18) mg/dL Creatinine 1.1 (0.6-1.3) mg/dL Est Cr Clr Drug Dosing TNP Estimated GFR (MDRD) > 60 BUN/Creatinine Ratio 26.36 Glucose 109 H (74-105) mg/dL Calcium 8.4 (8.4-10.2) mg/dl Total Bilirubin 4.8 H (0.2-1.0) mg/dL AST 40 (10-42) IU/L ALT 62 H (10-60) IU/L Alkaline Phosphatase 253 H (42-121) IU/L Troponin I 0.06 H* (0.00-0.02) ng/ml B-Natriuretic Peptide 1620 H (0-100) pg/ml Total Protein 6.9 (6.7-8.2) g/dl Albumin 3.4 (3.2-5.5) g/dl Globulin 3.5 Albumin/Globulin Ratio 0.97 / Range/Units 12:20 WBC (5.0-10.0) 10^3/uL RBC (4.6-6.2) 10^6/uL Hgb (14.0-18.0) g/dL Hct (40.0-54.0) % MCV (80-100) fL MCH (27.0-34.0) pg MCHC (33.0-35.0) g/dL Plt Count (150-450) 10^3/uL Lymph % (Auto) (20.5-50.1) % Pershing % (Auto) (2-8) % Eos % (Auto) (1.0-3.0) % Add Manual Diff Neutrophils % (Manual) (42-75) % Band Neutrophils % % Lymphocytes % (Manual) (20-50) % Monocytes % (Manual) (2-8) % Eosinophils % (Manual) (1-3) % D-Dimer, Quantitative 952 H (0-400) ng/mL Sodium (135-145) mmol/L Potassium (3.6-5.0) mmol/L Chloride (101-111) mmol/L Carbon Dioxide (21.0-31.0) mmol/L Anion Gap BUN (7-18) mg/dL Creatinine (0.6-1.3) mg/dL Est Cr Clr Drug Dosing Estimated GFR (MDRD) BUN/Creatinine Ratio Glucose (74-105) mg/dL Calcium (8.4-10.2) mg/dl Total Bilirubin (0.2-1.0) mg/dL AST (10-42) IU/L ALT (10-60) IU/L Alkaline Phosphatase (42-121) IU/L Troponin I (0.00-0.02) ng/ml B-Natriuretic Peptide (0-100) pg/ml Total Protein (6.7-8.2) g/dl Albumin (3.2-5.5) g/dl Globulin Albumin/Globulin Ratio Result Diagrams: 08/29/19 12:20 08/29/19 12:20 - Problem List (1) Acute CHF (congestive heart failure) SNOMED Code(s): 42982272 ICD Code: I50.9 - HEART FAILURE, UNSPECIFIED Status: Acute Current Visit : No Qualifiers: Heart failure type: unspecified Qualified Code(s): I50.9 - Heart failure, unspecified (2) Acute ischemic heart disease SNOMED Code(s): 878822576 ICD Code: I24.9 - ACUTE ISCHEMIC HEART DISEASE, UNSPECIFIED Status: Acute Current Visit: No (3) Pneumonia SNOMED Code(s): 069968205 ICD Code: J18.9 - PNEUMONIA, UNSPECIFIED ORGANISM Status: Acute Current Visit: No (4) Primary cancer of right lower lobe of lung SNOMED Code(s): 71708555 ICD Code: C34.31 - MALIGNANT NEOPLASM OF LOWER LOBE, RIGHT BRONCHUS OR LUNG Status: Acute Current Visit: No Problem List Initiated/Reviewed/Updated: Yes Orders Last 24hrs: Active Orders 24 hr Category Date Time Status Admission Diagnosis [ADT] Urgent ADT 08/29/19 13:13 Ordered Admission Status [Patient Status] [ADT] Routine ADT 08/29/19 13:13 Active Antiembolic Devices [RC] PER UNIT ROUTINE Care 08/29/19 14:28 Ordered EKG Documentation Completion [RC] URGENT Care 08/29/19 12:08 Active Oxygen Therapy [RC] PRN Care 08/29/19 14:27 Ordered Peripheral IV Care [RC] . DIRECTED Care 08/29/19 14:28 Ordered RT Aerosol Therapy [RC] ASDIRECTED Care 08/29/19 14:26 Ordered Up With Assistance [RC] ASDIRECTED Care 08/29/19 14:27 Ordered VTE/DVT Education [RC] PER UNIT ROUTINE Care 08/29/19 14:27 Ordered Vital Signs [RC] Q4H Care 08/29/19 14:27 Ordered Regular Diet [DIET] Diet 08/29/19 Dinner Ordered Venous Doppler Lwr Ext Bi [US] Routine Exams 08/29/19 14:17 Ordered BASIC METABOLIC PANEL,BMP [CHEM] AM Lab 08/30/19 05:15 Ordered CBC WITH AUTO DIFF [HEME] AM Lab 08/30/19 05:15 Ordered CULTURE BLOOD [BC] Stat Lab 08/29/19 13:33 Received CULTURE BLOOD [BC] Stat Lab 08/29/19 13:38 Received CULTURE SPUTUM + SMEAR [RM] Routine Lab 08/29/19 14:15 Ordered HEPATIC FUNCTION PANEL,HFP [CHEM] AM Lab 08/30/19 05:11 Ordered MAGNESIUM [CHEM] AM Lab 08/30/19 05:11 Ordered PHOSPHORUS [CHEM] AM Lab 08/30/19 05:11 Ordered TROPONIN I [CHEM] AM Lab 08/30/19 05:11 Ordered Acetaminophen [Tylenol] Med 08/29/19 14:27 Ordered 650 mg PO Q4H PRN Albuterol/Ipratropium [DuoNeb 3.0-0.5 MG/3 ML] Med 08/29/19 14:25 Ordered 3 ml NEB Q2H PRN Albuterol/Ipratropium [DuoNeb 3.0-0.5 MG/3 ML] Med 08/29/19 18:00 Ordered 3 ml NEB Q6HRRT Apixaban [Eliquis] Med 08/29/19 21:00 Ordered 2.5 mg PO BID Aspirin [Halfprin] Med 08/30/19 09:00 Ordered 81 mg PO DAILY Budesonide [Pulmicort] Med 08/29/19 21:00 Ordered 0.5 mg INH BID Docusate Sodium [Colace] Med 08/29/19 14:27 Ordered 100 mg PO BID PRN Furosemide [Lasix] Med 08/29/19 21:00 Ordered 40 mg IVPUSH BID Omeprazole Med 08/29/19 21:00 Ordered 20 mg PO BID Ondansetron [Zofran ODT] Med 08/29/19 14:27 Ordered 4 mg PO Q6H PRN Pharmacy to Dose - Vancomycin Med 08/29/19 14:15 Ordered 1 dose .XX ASDIRECTED Piperacillin/Tazobactam [Zosyn] 3.375 gm Med 08/29/19 14:30 Ordered Sodium Chloride 0.9% [Normal Saline] 100 ml IV Q6H Sodium Chloride 0.9% [Saline Flush] Med 08/29/19 14:27 Ordered 10 ml FLUSH ASDIRECTED PRN Temazepam [Restoril] Med 08/29/19 14:27 Ordered 15 mg PO BEDTIME PRN Vancomycin 1 gm Med 08/29/19 13:14 Active Sodium Chloride 0.9% [Normal Saline] 250 ml IV ONETIME rOPINIRole [Requip] Med 08/29/19 14:20 Ordered 4 mg PO Q4HR PRN Antiembolic Hose [OM.PC] Per Unit Routine Oth 08/29/19 14:27 Ordered Blood Culture x2 Reflex Set [OM.PC] Stat Oth 08/29/19 13:18 Ordered Peripheral IV Insertion Adult [OM.PC] Routine Oth 08/29/19 14:27 Ordered Saline Lock Insert [OM.PC] Routine Oth 08/29/19 14:27 Ordered Resuscitation Status Routine Resus Stat 08/29/19 14:27 Ordered Medication Orders Acetaminophen (Tylenol) 650 mg PO Q4H PRN PRN Reason: Pain (Mild 1-3)/fever Albuterol/Ipratropium (Duoneb 3.0-0.5 Mg/3 Ml) 3 ml NEB Q2H PRN PRN Reason: sob Albuterol/Ipratropium (Duoneb 3.0-0.5 Mg/3 Ml) 3 ml NEB Q6HRRT JOE Aspirin (Halfprin) 81 mg PO DAILY JOE Budesonide (Pulmicort) 0.5 mg INH BID JOE Docusate Sodium (Colace) 100 mg PO BID PRN PRN Reason: Constipation Furosemide (Lasix) 40 mg IVPUSH BID JOE Vancomycin HCl 1 gm/ Sodium (Chloride) 250 mls @ 167 mls/hr IV ONETIME ONE Stop: 08/29/19 14:43 Last Admin: 08/29/19 14:22 Dose: 167 mls/hr Piperacillin Sod/Tazobactam (Sod 3.375 gm/ Sodium Chloride) 100 mls @ 200 mls/ hr IV Q6H JOE Non-Formulary Medication (Apixaban [Eliquis]) 2.5 mg PO BID JOE Omeprazole (Omeprazole) 20 mg PO BID JOE Ondansetron HCl (Zofran Odt) 4 mg PO Q6H PRN PRN Reason: nausea, able to take PO Ropinirole HCl (Requip) 4 mg PO Q4HR PRN PRN Reason: RLS PAIN Sodium Chloride (Saline Flush) 10 ml FLUSH ASDIRECTED PRN PRN Reason: Keep Vein Open Temazepam (Restoril) 15 mg PO BEDTIME PRN PRN Reason: Sleep Vancomycin HCl (Pharmacy To Dose - Vancomycin) 1 dose .XX ASDIRECTED [facility] Assessment/Plan Comment:: 73-year-old with a history of atrial fibrillation, lung cancer status post a right lung resection, congestive heart failure likely secondary to diastolic dysfunction. Biliary obstruction status post recent stent placement Acute on chronic hypoxemic respiratory failure The patient is normally on 3-4 L nasal cannula oxygen at home We'll supplement oxygen as needed Pneumonia Likely partially treated Obtain sputum culture Open blood culture Origin is likely community-acquired but the patient is has significant healthcare exposure Will treat with vancomycin and Zosyn for potential gram-negative pneumonia COPD Will treat with aggressive nebulizers with Pulmicort, scheduled DuoNeb, as needed DuoNeb Acute congestive heart failure Last ejection fraction I have from April 2019 was 50-55% This is likely secondary to diastolic dysfunction We'll increase the patient's diuretics Continue metoprolol Pulmonary embolism is in the differential for the relatively acute onset of worsening hypoxemic respiratory failure It is less likely since the patient has been on apixaban He also noted to have a episode of hemoptysis right after admission We'll obtain lower extremity ultrasound for elevation of DVT We'll continue apixaban Pancreatic duct obstruction Status post recent pancreatic duct stenting Follow liver enzymes Mildly elevated troponin This is likely secondary to the respiratory failure We'll monitor closely Repeat troponins Continue aspirin, metoprolol, anticoagulation DVT prophylaxis with apixaban l
[2019-08-29] MEDS: Piperacillin/Tazobactam 3.375 GM in Sodium Chloride 0.9% 100 ML IV SCH ×3 (16:07→23:27)
[2019-08-29] MEDS: Furosemide 40 MG/4 ML VIAL IVPUSH SCH (16:07)
[2019-08-29] MEDS: Omeprazole 20 MG Cap.CR PO SCH (16:18)
[2019-08-29] MEDS: rOPINIRole 2 MG Tab PO PRN ×2 (16:21→20:27)
[2019-08-29] MEDS: Albuterol/Ipratropium 3.0-0.5 MG/3 ML Neb Soln NEB SCH ×2 (16:45→18:38)
[2019-08-29] MEDS: Budesonide 0.5 MG/2 ML Neb Susp INH SCH ×2 (16:51→18:38)
--- NOTE | 2019-08-29 17:12 | US ---
EXAMINATION: Venous Doppler Lwr Ext Bi SEX: Male AGE: 73 years CLINICAL HISTORY: 73-year-old male with lower extremity edema and shortness of breath (history CHF and superficial varicosities). Rule out DVT. INTERPRETATION: No sign of intraluminal venous thrombosis and normal compressibility deep veins of both groins, thigh, knee and calves of the lower extremities. Normal compressibility and augmentation and venous waveforms respectively in the peroneal/posterior tibial veins both calves, popliteal veins behind both knees, and proximally in the femoral veins of both thighs. ("Slow moving blood" distally, left lower extremity). Incidentally demonstrated 3.3 x 1.1 x 1.0 cm diameter avascular hypoechoic cyst in the popliteal fossa behind the right knee. No popliteal artery aneurysms. CONCLUSION: No current evidence deep vein thrombosis lower extremities. Popliteal cyst behind the right knee.
[2019-08-29] MEDS ORDERED: LORazepam 1 MG Tab PO PRN (19:26)
[2019-08-29] MEDS: Apixaban 5 MG Tab PO SCH (20:26)
[2019-08-29] MEDS: Sodium Chloride 0.9% 10 ML Syringe FLUSH PRN (23:26)
[2019-08-30] MEDS: Albuterol/Ipratropium 3.0-0.5 MG/3 ML Neb Soln NEB SCH ×4 (00:08→17:57)
[2019-08-30] MEDS: rOPINIRole 2 MG Tab PO PRN ×2 (00:49→14:20)
[2019-08-30] MEDS: Sodium Chloride 0.9% 10 ML Syringe FLUSH PRN ×8 (02:50→23:50)
[2019-08-30] MEDS: Omeprazole 20 MG Cap.CR PO SCH ×2 (05:47→16:39)
[2019-08-30] MEDS: Piperacillin/Tazobactam 3.375 GM in Sodium Chloride 0.9% 100 ML IV SCH ×4 (05:49→23:52)
[2019-08-30 06:53] LABS: ANION GAP 15.4
[2019-08-30] MEDS: Budesonide 0.5 MG/2 ML Neb Susp INH SCH ×2 (07:10→18:03)
[2019-08-30] MEDS: Apixaban 5 MG Tab PO SCH ×2 (08:14→20:45)
[2019-08-30] MEDS: Furosemide 40 MG/4 ML VIAL IVPUSH SCH ×2 (08:15→14:01)
[2019-08-30] MEDS: Aspirin 81 MG Tab.EC PO SCH (08:15)
[2019-08-30] MEDS: Acetaminophen 325 MG Tab PO PRN (08:23)
[2019-08-30] MEDS ORDERED: LORazepam 0.5 MG Tab PO PRN (08:31)
--- NOTE | 2019-08-30 12:17 | PCM.PN ---
- General Info Date of Service: 08/30/19 Admission Dx/Problem (Free Text): Admission Diagnosis/Problem Admission Diagnosis/Problem shortness of breath Subjective Update: had episodes of anxiety overnight sob is moderate, unchanged, worse with activity, started days ago, better with rest, associated with anxiety has had a holbrook placed, had good Uo Functional Status: Reports: Pain Controlled, Tolerating Diet - Review of Systems General: Reports: Weakness. Denies: Fever Pulmonary: Reports: Shortness of Breath Cardiovascular: Denies: Chest Pain Gastrointestinal: Denies: Abdominal Pain Neurological: Denies: Confusion - Patient Data Vitals - Most Recent: Last Vital Signs Temp 98.9 F 08/30/19 11:33 Pulse 101 H 08/30/19 11:33 Resp 20 08/30/19 11:33 BP 102/57 L 08/30/19 11:33 Pulse Ox 95 08/30/19 11:33 Weight - Most Recent: 126 lb 12.8 oz I&O - Last 24 Hours: Intake & Output 08/29/19 08/30/19 08/30/19 22:59 06:59 14:59 Intake Total 420 900 220 Output Total 1900 1075 Balance -1480 -175 220 Lab Results Last 24 Hours: Laboratory Results - last 24 hr 08/29/19 08/29/19 08/29/19 Range/Units 12:20 12:20 12:20 WBC 16.7 H (5.0-10.0) 10^3/uL RBC 2.61 L (4.6-6.2) 10^6/uL Hgb 8.4 L (14.0-18.0) g/dL Hct 27.0 L (40.0-54.0) % MCV 103.4 H D (80-100) fL MCH 32.2 (27.0-34.0) pg MCHC 31.1 L (33.0-35.0) g/dL Plt Count 238 (150-450) 10^3/uL Lymph % (Auto) 11.6 L (20.5-50.1) % [place] % (Auto) 9.7 H (2-8) % Eos % (Auto) 0.1 L (1.0-3.0) % Add Manual Diff Yes Neutrophils % (Manual) 69 (42-75) % Band Neutrophils % 5 % Lymphocytes % (Manual) 17 L (20-50) % Monocytes % (Manual) 8 (2-8) % Eosinophils % (Manual) 1 (1-3) % Hypochromasia Poikilocytosis Anisocytosis Target Cells D-Dimer, Quantitative (0-400) ng/mL Sodium 139 (135-145) mmol/L Potassium 4.5 (3.6-5.0) mmol/L Chloride 102 (101-111) mmol/L Carbon Dioxide 26.0 (21.0-31.0) mmol/L Anion Gap 15.5 BUN 29 H (7-18) mg/dL Creatinine 1.1 (0.6-1.3) mg/dL Est Cr Clr Drug Dosing TNP Estimated GFR (MDRD) > 60 BUN/Creatinine Ratio 26.36 Glucose 109 H (74-105) mg/dL Calcium 8.4 (8.4-10.2) mg/dl Phosphorus (2.5-4.6) mg/dL Magnesium (1.8-2.5) mg/dL Total Bilirubin 4.8 H (0.2-1.0) mg/dL Direct Bilirubin (0.0-0.2) mg/dL Indirect Bilirubin AST 40 (10-42) IU/L ALT 62 H (10-60) IU/L Alkaline Phosphatase 253 H (42-121) IU/L Troponin I 0.06 H* (0.00-0.02) ng/ml B-Natriuretic Peptide 1620 H (0-100) pg/ml Total Protein 6.9 (6.7-8.2) g/dl Albumin 3.4 (3.2-5.5) g/dl Globulin 3.5 Albumin/Globulin Ratio 0.97 08/29/19 08/30/19 08/30/19 Range/Units 12:20 06:15 06:15 WBC 19.0 H (5.0-10.0) 10^3/uL RBC 2.74 L (4.6-6.2) 10^6/uL Hgb 8.8 L (14.0-18.0) g/dL Hct 28.5 L (40.0-54.0) % MCV 104.0 H (80-100) fL MCH 32.1 (27.0-34.0) pg MCHC 30.9 L (33.0-35.0) g/dL Plt Count 203 (150-450) 10^3/uL Lymph % (Auto) 7.3 L (20.5-50.1) % [place] % (Auto) 10.8 H (2-8) % Eos % (Auto) 0.3 L (1.0-3.0) % Add Manual Diff Yes Neutrophils % (Manual) 76 H (42-75) % Band Neutrophils % 9 % Lymphocytes % (Manual) 7 L (20-50) % Monocytes % (Manual) 8 (2-8) % Eosinophils % (Manual) (1-3) % Hypochromasia 1+ slight Poikilocytosis 1+ slight Anisocytosis 1+ slight Target Cells 1+ slight D-Dimer, Quantitative 952 H (0-400) ng/mL Sodium 136 (135-145) mmol/L Potassium 4.4 (3.6-5.0) mmol/L Chloride 98 L (101-111) mmol/L Carbon Dioxide 27.0 (21.0-31.0) mmol/L Anion Gap 15.4 BUN 28 H (7-18) mg/dL Creatinine 1.2 (0.6-1.3) mg/dL Est Cr Clr Drug Dosing 43.94 Estimated GFR (MDRD) 59 BUN/Creatinine Ratio Glucose 102 (74-105) mg/dL Calcium 8.1 L (8.4-10.2) mg/dl Phosphorus 4.3 (2.5-4.6) mg/dL Magnesium 1.6 L (1.8-2.5) mg/dL Total Bilirubin 5.3 H (0.2-1.0) mg/dL Direct Bilirubin 2.3 H (0.0-0.2) mg/dL Indirect Bilirubin 3.0 AST 39 (10-42) IU/L ALT 57 (10-60) IU/L Alkaline Phosphatase 219 H (42-121) IU/L Troponin I 0.06 H* (0.00-0.02) ng/ml B-Natriuretic Peptide (0-100) pg/ml Total Protein 6.8 (6.7-8.2) g/dl Albumin 3.2 (3.2-5.5) g/dl Globulin 3.6 Albumin/Globulin Ratio 0.89 [place] Results Last 24 Hours: Microbiology 08/29/19 14:35 Gram Stain - Final Sputum - Expectorated Sputum Culture - Preliminary Med Orders - Current: Current Medications Acetaminophen (Tylenol) 650 mg PO Q4H PRN PRN Reason: Pain (Mild 1-3)/fever Last Admin: 08/30/19 08:23 Dose: 650 mg Albuterol/Ipratropium (Duoneb 3.0-0.5 Mg/3 Ml) 3 ml NEB Q2H PRN PRN Reason: sob Albuterol/Ipratropium (Duoneb 3.0-0.5 Mg/3 Ml) 3 ml NEB Q6HRRT [facility] Last Admin: 08/30/19 07:10 Dose: 3 ml Apixaban (Eliquis) 2.5 mg PO BID [facility] Last Admin: 08/30/19 08:14 Dose: 2.5 mg Aspirin (Halfprin) 81 mg PO DAILY [facility] Last Admin: 08/30/19 08:15 Dose: 81 mg Budesonide (Pulmicort) 0.5 mg INH BIDRT [facility] Last Admin: 08/30/19 07:10 Dose: 0.5 mg Docusate Sodium (Colace) 100 mg PO BID PRN PRN Reason: Constipation Furosemide (Lasix) 40 mg IVPUSH BIDDIURETIC [facility] Last Admin: 08/30/19 08:15 Dose: 40 mg Piperacillin Sod/Tazobactam (Sod 3.375 gm/ Sodium Chloride) 100 mls @ 200 mls/ hr IV Q6HR [facility] Last Infusion: 08/30/19 08:32 Dose: Infused Vancomycin HCl 1 gm/ Premix 200 mls @ 133.333 mls/hr IV Q12H [facility] Last Infusion: 08/30/19 04:38 Dose: Infused Influenza Virus Vaccine (Pharmacy To Dose - Influenza Vaccine) 1 each IM ONETIME ONE Stop: 08/29/19 16:19 Lorazepam (Ativan) 0.5 mg PO Q4H PRN PRN Reason: Anxiety Last Admin: 08/30/19 09:05 Dose: 0.5 mg Magnesium Oxide (Magnesium Oxide) 250 mg PO BIDM [facility] Stop: 08/30/19 18:01 Omeprazole (Omeprazole) 20 mg PO BIDAC [facility] Last Admin: 08/30/19 05:47 Dose: 20 mg Ondansetron HCl (Zofran Odt) 4 mg PO Q6H PRN PRN Reason: nausea, able to take PO Ropinirole HCl (Requip) 4 mg PO Q4HR PRN PRN Reason: RLS PAIN Last Admin: 08/30/19 00:49 Dose: 4 mg Sodium Chloride (Saline Flush) 10 ml FLUSH ASDIRECTED PRN PRN Reason: Keep Vein Open Last Admin: 08/30/19 08:15 Dose: 10 ml Temazepam (Restoril) 15 mg PO BEDTIME PRN PRN Reason: Sleep Vancomycin HCl (Pharmacy To Dose - Vancomycin) 1 dose .XX ASDIRECTED JOE Discontinued Medications Vancomycin HCl 1 gm/ Sodium (Chloride) 250 mls @ 167 mls/hr IV ONETIME ONE Stop: 08/29/19 14:43 Last Admin: 08/29/19 14:22 Dose: 167 mls/hr Lorazepam (Ativan) 1 mg PO Q4H PRN PRN Reason: Anxiety - Exam Quality Assessment: Supplemental Oxygen General: Alert Neck: Supple Lungs: Normal Respiratory Effort. No: Rhonchi, Wheezing Cardiovascular: Regular Rate, Regular Rhythm GI/Abdominal Exam: Normal Bowel Sounds, Soft, Non-Tender Extremities: Pedal Edema Skin: Warm, Dry Neurological: No New Focal Deficit Psy/Mental Status: Alert, Normal Affect, Normal Mood Sepsis Event Note - Evaluation Sepsis Screening Result: Severe Sepsis Risk - Focused Exam Vital Signs: Vital Signs Temp Pulse Resp BP BP Pulse Ox Pulse Ox 08/30/19 11:33 98.9 F 101 H 20 102/57 L 95 08/30/19 07:10 91 96 08/30/19 07:07 100 F 94 26 H 116/55 L 90 L 08/30/19 03:17 99.6 F 100 20 126/68 96 Date Exam was Performed: 08/30/19 Time Exam was Performed: 12:17 - Problem List & Annotations (1) Acute CHF (congestive heart failure) SNOMED Code(s): 62569344 Code(s): I50.9 - HEART FAILURE, UNSPECIFIED Status: Acute Current Visit: No Qualifiers: Heart failure type: unspecified Qualified Code(s): I50.9 - Heart failure, unspecified (2) Acute ischemic heart disease SNOMED Code(s): 744111495 Code(s): I24.9 - ACUTE ISCHEMIC HEART DISEASE, UNSPECIFIED Status: Acute Current Visit: No (3) Pneumonia SNOMED Code(s): 616428451 Code(s): J18.9 - PNEUMONIA, UNSPECIFIED ORGANISM Status: Acute Current Visit: No (4) Primary cancer of right lower lobe of lung SNOMED Code(s): 80362135 Code(s): C34.31 - MALIGNANT NEOPLASM OF LOWER LOBE, RIGHT BRONCHUS OR LUNG Status: Acute Current Visit: No - Problem List Review Problem List Initiated/Reviewed/Updated: Yes - My Orders Last 24 Hours: My Active Orders 08/29/19 14:15 Pharmacy to Dose - Vancomycin 1 dose .XX ASDIRECTED 08/29/19 14:20 rOPINIRole [Requip] 4 mg PO Q4HR PRN 08/29/19 14:25 Albuterol/Ipratropium [DuoNeb 3.0-0.5 MG/3 ML] 3 ml NEB Q2H PRN 08/29/19 14:26 RT Aerosol Therapy [RC] ASDIRECTED 08/29/19 14:27 Oxygen Therapy [RC] PRN Up With Assistance [RC] ASDIRECTED VTE/DVT Education [RC] Vital Signs [RC] Q4H Acetaminophen [Tylenol] 650 mg PO Q4H PRN Docusate Sodium [Colace] 100 mg PO BID PRN Ondansetron [Zofran ODT] 4 mg PO Q6H PRN Sodium Chloride 0.9% [Saline Flush] 10 ml FLUSH ASDIRECTED PRN Temazepam [Restoril] 15 mg PO BEDTIME PRN Antiembolic Hose [OM.PC] Per Unit Routine Peripheral IV Insertion Adult [OM.PC] Routine Saline Lock Insert [OM.PC] Routine Resuscitation Status Routine 08/29/19 14:28 Antiembolic Devices [RC] Peripheral IV Care [RC] 08/29/19 14:30 Piperacillin/Tazobactam [Zosyn] 3.375 gm Sodium Chloride 0.9% [Normal Saline] 100 ml IV Q6HR 08/29/19 14:35 CULTURE SPUTUM + SMEAR [RM] Routine 08/29/19 14:45 Furosemide [Lasix] 40 mg IVPUSH BIDDIURETIC 08/29/19 15:55 Dietary Supplements [RC] ,15,08/29/19 16:00 Omeprazole 20 mg PO BIDAC 08/29/19 16:18 Influenza Vaccine Charge [RC] .DISCHARGE Pharmacy to Dose - InFluenza V [Pharmacy to Dose - InFluenza Vaccine] 1 each IM ONETIME ONE 08/29/19 17:23 Urinary Catheter Assessment [RC] 08/29/19 17:30 Urinary Catheter Insertion [Insert Urinary Catheter] [OM.PC] Q24H 08/29/19 18:00 Albuterol/Ipratropium [DuoNeb 3.0-0.5 MG/3 ML] 3 ml NEB Q6HRRT Budesonide [Pulmicort] 0.5 mg INH BIDRT 08/29/19 21:00 Apixaban [Eliquis] 2.5 mg PO BID 08/29/19 Dinner Regular Diet [DIET] 08/30/19 03:00 Vancomycin/Water for INJ (PEG) [Vancomycin 1 GM/200 ML Premix] 1 gm Premix Bag 1 bag IV Q12H 08/30/19 08:31 LORazepam [Ativan] 0.5 mg PO Q4H PRN 08/30/19 09:00 Aspirin [Halfprin] 81 mg PO DAILY 08/30/19 11:30 Magnesium Oxide 250 mg PO BIDM 08/31/19 05:15 BASIC METABOLIC PANEL,BMP [CHEM] AM CBC WITH AUTO DIFF [HEME] AM 08/31/19 14:30 VANCOMYCIN TROUGH [CHEM] Timed - Plan Plan:: 73-year-old with a history of atrial fibrillation, lung cancer status post a right lung resection, congestive heart failure likely secondary to diastolic dysfunction. Biliary obstruction status post recent stent placement Acute on chronic hypoxemic respiratory failure The patient is normally on 3-4 L nasal cannula oxygen at home We'll supplement oxygen as needed Pneumonia Likely partially treated still with leukocytosis Sputum culture: prelim report: gram pos cocci blood culture: pending Origin is likely community-acquired but the patient is has significant healthcare exposure Will treat with vancomycin and Zosyn for potential gram-negative pneumonia COPD Will treat with aggressive nebulizers with Pulmicort, scheduled DuoNeb, as needed DuoNeb Acute congestive heart failure Last ejection fraction I have from April 2019 was 50-55% This is likely secondary to diastolic dysfunction continue with increased diuretics Continue metoprolol maintain holbrook cath Pulmonary embolism is in the differential for the relatively acute onset of worsening hypoxemic respiratory failure It is less likely since the patient has been on apixaban He also noted to have a episode of hemoptysis right after admission negative lower extremity ultrasound We'll continue apixaban - monitor hemoptysis Pancreatic duct obstruction Status post recent pancreatic duct stenting Follow liver enzymes Mildly elevated troponin - stable This is likely secondary to the respiratory failure Continue aspirin, metoprolol, anticoagulation DVT prophylaxis with apixaban l
[2019-08-31] MEDS: Albuterol/Ipratropium 3.0-0.5 MG/3 ML Neb Soln NEB SCH ×4 (00:01→17:41)
[2019-08-31] MEDS: Sodium Chloride 0.9% 10 ML Syringe FLUSH PRN ×6 (00:38→23:08)
[2019-08-31] MEDS: Piperacillin/Tazobactam 3.375 GM in Sodium Chloride 0.9% 100 ML IV SCH ×3 (05:32→18:16)
[2019-08-31] MEDS: Omeprazole 20 MG Cap.CR PO SCH ×2 (05:35→16:31)
[2019-08-31] MEDS: Budesonide 0.5 MG/2 ML Neb Susp INH SCH ×2 (07:08→17:41)
[2019-08-31 07:25] LABS: ANION GAP 16.5
[2019-08-31] MEDS ORDERED: Codeine/Promethazine 10-6.25 MG/5 ML Syrup 5 ML UD Cup PO PRN (07:51)
[2019-08-31] MEDS ORDERED: Potassium Chloride 10 MEQ Tab.ER PO SCH (08:00)
[2019-08-31] MEDS: Furosemide 40 MG/4 ML VIAL IVPUSH SCH ×2 (08:45→13:50)
[2019-08-31] MEDS: Apixaban 5 MG Tab PO SCH ×2 (08:46→20:42)
[2019-08-31] MEDS: Aspirin 81 MG Tab.EC PO SCH (08:46)
[2019-08-31] MEDS: Acetaminophen 325 MG Tab PO PRN ×2 (08:49→23:05)
[2019-08-31] MEDS: rOPINIRole 2 MG Tab PO PRN ×3 (08:49→20:47)
--- NOTE | 2019-08-31 10:08 | PN ---
DATE: 08/31/2019 SUBJECTIVE: The patient is a 73-year-old gentleman who was admitted because of shortness of breath, likely secondary to congestive heart failure and partially treated pneumonia. The patient is currently on vancomycin and Zosyn IV antibiotics. The patient is also on Lasix IV b.i.d. The patient this morning is still complaining of productive cough with blood-tinged sputum and he is still complaining of his shortness of breath. He denies though any chest pain, abdominal pain, syncope, nor any other complaints. LABORATORY DATA: Lab workup this morning: CBC; WBC is 13.3 (improving), hemoglobin is 8.3, hematocrit is 27.2 (stable), and platelet is 172. Chem-6 is remarkable for potassium of 3.5, chloride of 99, BUN of 36; the rest of the panel unremarkable. Total bilirubin is 4.8, direct bilirubin is 2.1. Alkaline phosphatase is 177, total protein 6.4, albumin is 3.1. OBJECTIVE: Vital Signs: Blood pressure is 123/85, pulse of 58, respirations 20, saturation is 98% on 5 L per nasal cannula, temperature is 100.1. Heart: Regular rate and rhythm. No rubs. Lungs: Diminished breath sounds bilaterally, but no significant crackles or wheezing. Abdomen: Soft, nontender. Bowel sounds positive. Extremities: Negative for any significant pedal edema. No calf tenderness. MEDICATIONS: Reviewed. PLAN: We will continue with his present management and continue with IV vancomycin and Zosyn as well as the IV Lasix. I am going to add potassium supplementation as his potassium is slightly low. We will also put him on Phenergan with codeine for symptomatic cough relief. MOD /[id number]
[2019-08-31] MEDS: Potassium Chloride 10 MEQ Tab.ER PO SCH (13:43)
[2019-09-01] MEDS: Albuterol/Ipratropium 3.0-0.5 MG/3 ML Neb Soln NEB SCH ×4 (00:18→18:06)
[2019-09-01] MEDS: Piperacillin/Tazobactam 3.375 GM in Sodium Chloride 0.9% 100 ML IV SCH ×4 (00:48→18:06)
[2019-09-01] MEDS: rOPINIRole 2 MG Tab PO PRN ×4 (00:55→21:01)
[2019-09-01] MEDS ORDERED: Sodium Chloride 0.9% 100 ML ONE (05:10)
[2019-09-01] MEDS: Omeprazole 20 MG Cap.CR PO SCH ×2 (05:31→15:00)
[2019-09-01] MEDS: Sodium Chloride 0.9% 10 ML Syringe FLUSH PRN (05:38)
[2019-09-01] MEDS: Budesonide 0.5 MG/2 ML Neb Susp INH SCH ×2 (07:35→18:06)
[2019-09-01] MEDS ORDERED: Potassium Chloride 10 MEQ Tab.ER PO ONE (08:34)
[2019-09-01] MEDS: Apixaban 5 MG Tab PO SCH ×2 (09:11→20:58)
[2019-09-01] MEDS: Aspirin 81 MG Tab.EC PO SCH (09:11)
[2019-09-01] MEDS: Potassium Chloride 10 MEQ Tab.ER PO SCH (09:11)
[2019-09-01] MEDS: Furosemide 40 MG/4 ML VIAL IVPUSH SCH ×2 (09:12→14:57)
[2019-09-01] MEDS: Acetaminophen 325 MG Tab PO PRN ×3 (09:12→21:00)
--- NOTE | 2019-09-01 11:55 | PN ---
DATE: 09/01/2019 SUBJECTIVE: The patient had a good night sleep and the patient has been diuresing well, and last night he pulled out his catheter and he did not want it to be back, but he has been urinating without the Rivera catheter. He still has shortness of breath and dyspnea on exertion, but this is slightly better, and so far the patient has not had any blood-tinged sputum. OBJECTIVE: Vital Signs: Blood pressure is 143/72, pulse of 94, temperature of 99.8, saturation is 92% on 5 L per nasal cannula. Heart: Regular rate and rhythm. Lungs: Diminished breath sounds on both bases with no significant wheezing or crackles. Abdomen: Soft, nontender. Bowel sounds positive. Extremities: Negative for any significant pedal edema. No calf tenderness. PLAN: We will continue with his IV Lasix and we will continue with his IV antibiotics that is the vancomycin and Zosyn, and we will recheck a CBC and chem- 6 in a.m. [facility] /[id number]
[2019-09-01] MEDS: Lidocaine 5% 700 MG Patch TOP SCH (11:59)
[2019-09-02] MEDS: Piperacillin/Tazobactam 3.375 GM in Sodium Chloride 0.9% 100 ML IV SCH ×2 (00:13→05:38)
[2019-09-02] MEDS: Albuterol/Ipratropium 3.0-0.5 MG/3 ML Neb Soln NEB SCH ×2 (00:19→07:16)
[2019-09-02] MEDS: Omeprazole 20 MG Cap.CR PO SCH (05:38)
[2019-09-02 07:07] LABS: ANION GAP 18.1; CHLORIDE,CL 97 mmol/L (101-111); SODIUM,NA 139 mmol/L (135-145)
[2019-09-02] MEDS: Budesonide 0.5 MG/2 ML Neb Susp INH SCH (07:16)
[2019-09-02] MEDS: Potassium Chloride 10 MEQ Tab.ER PO SCH (08:17)
[2019-09-02] MEDS: Sodium Chloride 0.9% 10 ML Syringe FLUSH PRN (08:17)
[2019-09-02] MEDS: Furosemide 40 MG/4 ML VIAL IVPUSH SCH (08:17)
[2019-09-02] MEDS: Apixaban 5 MG Tab PO SCH (08:17)
[2019-09-02] MEDS: Lidocaine 5% 700 MG Patch TOP SCH (08:17)
[2019-09-02] MEDS: rOPINIRole 2 MG Tab PO PRN (08:22)
[2019-09-02] MEDS: Aspirin 81 MG Tab.EC PO SCH (10:55)
[2019-09-02 11:34] VITALS: BP 135/63; PULSE 117
--- NOTE | 2019-09-02 11:43 | DISCH ---
FINAL DIAGNOSES: 1. Pneumonia. 2. Congestive heart failure. 3. Recent pancreatic duct stent placement. 4. Recent myocardial infarction. 5. History of lung cancer, status post right lung resection. BRIEF HISTORY OF PRESENT ILLNESS: Please see H and P, pertinent lab, x-ray, and other tests. Blood cultures negative after 3 days. Sputum culture is pending. CBC, 09/02/2019, WBC is 9.8, hemoglobin is 8.4, hematocrit is 28, platelet is 173. Repeat troponin on 09/01/2019 is 0.07 and BNP is 1320. HOSPITAL COURSE: The patient was admitted to General Medicine floor. He was started on IV vancomycin and IV Zosyn as well as IV Lasix twice a day. The patient responded well with a good diuresis and his WBC is slowly improved, but the patient continued to have dyspnea on exertion with minimal activity, and because of his complicated nature including the CHF, recent AL, and recent pancreatic duct stenting and with also his regular doctors that takes care of him including Pulmonology, Infectious Disease, and Cardiology, the patient was transferred to [facility] for further management. I did speak with Dr. Melton who is familiar with the patient and he was agreeable to accept the patient. We will transfer the patient by ambulance and condition at transfer is stable. [facility] /[id number]
[2019-09-02] MEDS ORDERED: rOPINIRole 2 MG Tab PO SCH (14:00)
--- NOTE | 2019-09-02 16:07 | PN ---
DATE: 09/02/2019 SUBJECTIVE: The patient indicated that he has talked with his that he would like to be transferred to [facility] because of his complicated case and he is still short of breath with minimal activity, and he also mentioned that he has his supply chain specialist and wire winding machine operator in [facility] in [place], and he is also being followed by Irene Cordova/infectious disease provider. We were planning to give his some blood transfusion today because of his anemia, but again, since the patient has requested for the transfer and I also agree with the patient that because of his complicated nature that he needs to be transferred. I did talk with Dr. Melton, who is the hospitalist at [facility], who is also familiar with the patient, and he is agreeable to accept the patient. CONDITION AT [facility]: Stable. We will hold the blood transfusion, and he will be seeing supply chain specialist there as well as wire winding machine operator because of his pneumonia and CHF, as well as Infectious Disease. [facility] /[id number]
--- NOTE | 2019-09-02 16:16 | PN ---
DATE: 09/02/2019 SUBJECTIVE: The patient is still complaining of dyspnea on exertion with mild activity, but he has been diuresing well, and he denies any fever or chills, and so far, has not had any problems with blood-tinged sputum. He had some lab workup done yesterday. WBC 9.8, which is improvement, hemoglobin is 8.4, hematocrit is 28 (stable) platelet is 173 which is within normal limits. Chem- 6; potassium is 4.1 (now better), BUN is 39, glucose is 114, total bilirubin is 4.1 (improving), and direct bilirubin is 1.9 (improving.) Troponin was 0.07 which is still slightly elevated and this is most likely from his CHF, and his BNP is 1320 which is better from before. This was discussed with the patient. OBJECTIVE: Vital Signs: Blood pressure is 124/79, pulse of 123, respiration of 20, temperature of 97.9. Heart: Regular rate and rhythm. No rubs. No gallops. Lungs: Diminished breath sounds on both bases, but no significant crackles, no wheezing. Abdomen: Soft and nontender. Bowel sounds positive. Extremities: Negative for any significant pedal edema. No calf tenderness. PLAN: We will continue with his IV antibiotics, that are Zosyn and vancomycin, and we will also continue with his IV Lasix for diuresis and potassium supplementation. I am going to order for a chest x-ray today for followup of his pneumonia and CHF. MOD /[id number]
--- NOTE | 2019-09-03 09:00 | CR ---
EXAMINATION: Chest 1V Frontal SEX: Male AGE: 73 years CLINICAL HISTORY: 73-year-old male presents for follow-up "pneumonia and chf." INTERPRETATION: (Upright AP portable) 1. Asymmetric elevation right hemidiaphragm and evidence of multilobar pneumonia. (Pulmonary vascularity less congested and overall decreased consolidation left upper and both lower lobes since 29 August 2019 and earlier 14 August 2019 exam.) 2. Chronic volume loss right hemithorax. No pneumothorax or pneumomediastinum. 3. Normal cardiac silhouette without new evidence of pulmonary vascular congestion or dependent pleural fluid accumulation. CONCLUSION: Subtle interval improvement "multilobar consolidation" demonstrated 29 August 2019.
== END 2019-09-02 12:00 | DRG 280 ==
LOC: DL.ED 11:51 → DL.MS 13:13
PROVIDERS: ADMIT Internal Medicine; ATTEND Internal Medicine
DX: I11.0 Hypertensive heart disease with heart failure (principal); J18.9 Pneumonia, unspecified organism; I48.91 Unspecified atrial fibrillation; I10 Essential (primary) hypertension; I21.4 Non-ST elevation (NSTEMI) myocardial infarction; J96.21 Acute and chronic respiratory failure with hypoxia; K59.09 Other constipation; I50.31 Acute diastolic (congestive) heart failure; J44.0 Chronic obstructive pulmonary disease with (acute) lower respiratory infection; I48.0 Paroxysmal atrial fibrillation; G25.81 Restless legs syndrome; D64.9 Anemia, unspecified; I25.10 Atherosclerotic heart disease of native coronary artery without angina pectoris; M54.9 Dorsalgia, unspecified; Z95.5 Presence of coronary angioplasty implant and graft; E87.6 Hypokalemia; G89.29 Other chronic pain; M19.90 Unspecified osteoarthritis, unspecified site; Z87.01 Personal history of pneumonia (recurrent); K86.89 Other specified diseases of pancreas; F41.9 Anxiety disorder, unspecified; H54.7 Unspecified visual loss; Z85.118 Personal history of other malignant neoplasm of bronchus and lung; Z79.52 Long term (current) use of systemic steroids; Z90.2 Acquired absence of lung [part of]; Z88.1 Allergy status to other antibiotic agents; Z88.0 Allergy status to penicillin; Z91.030 Bee allergy status; Z88.8 Allergy status to other drugs, medicaments and biological substances; Z79.51 Long term (current) use of inhaled steroids; Z79.82 Long term (current) use of aspirin; Z79.01 Long term (current) use of anticoagulants; Z79.2 Long term (current) use of antibiotics; Z85.828 Personal history of other malignant neoplasm of skin; Z90.49 Acquired absence of other specified parts of digestive tract; Z87.891 Personal history of nicotine dependence; Z95.818 Presence of other cardiac implants and grafts; Z99.81 Dependence on supplemental oxygen; Z86.73 Personal history of transient ischemic attack (TIA), and cerebral infarction without residual deficits
CPT/HCPCS: 36415; 51702; 71045; 71046; 80048; 80053; 80076; 80202; 83735; 83880; 84100; 84484; 85025; 85379; 87040; 87070; 87205; 93005; 93970; 94010; 94640; 94667; 99284; 99285-25; A9270-GY; J1940; J2543; J3370; J7050; J7620-GY

== ENCOUNTER 2019-09-17 11:43 | Observation (INO) | payer MEDICARE, BC ==
[2019-09-17] MEDS ORDERED: methylPREDNISolone Sodium Succinate 125 MG/2 ML SDV IVPUSH ONE (11:57)
[2019-09-17] MEDS ORDERED: Albuterol/Ipratropium 3.0-0.5 MG/3 ML Neb Soln NEB ONE (11:57)
[2019-09-17] MEDS ORDERED: Sodium Chloride 0.9% 10 ML Syringe FLUSH PRN (11:58)
[2019-09-17 12:12] LABS: BASE EXCESS ARTERIAL 3 mmol/L ((-2)-(+3)); BICARBONATE,ARTERIAL 27.1 mmol/L (22-26); O2 DELIVERY DEVICE NASAL CANNULA; O2 SATURATION ARTERIAL 93 % (95-100); PCO2 ARTERIAL 41 mmHg (35-45); PO2 ARTERIAL 69 mmHg (70-100)
[2019-09-17 12:16] LABS: ALLEN TEST POSITIVE; O2 FLOW RATE 2
[2019-09-17] MEDS ORDERED: Furosemide 40 MG/4 ML VIAL IVPUSH ONE (12:31)
[2019-09-17 12:37] LABS: ANION GAP 16.3
[2019-09-17] MEDS ORDERED: Levofloxacin/Dextrose 5%-Water 500 MG in Premix Bag 1 BAG IV ONE (12:54)
[2019-09-17] MEDS ORDERED: Acetaminophen/HYDROcodone 325-10 MG Tab PO ONE (12:55)
--- NOTE | 2019-09-17 13:08 | EDM.PDOC ---
"Scribed by Helga Nolan 09/17/19 0261 for Oliver Goff MD ED HPI GENERAL MEDICAL PROBLEM - General Chief Complaint: Respiratory Problem Stated Complaint: O2 LEVEL NOT RIGHT Time Seen by Provider: 09/17/19 11:51 Source of Information: Reports: Patient, RN, RN Notes Reviewed History Limitations: Reports: No Limitations - History of Present Illness INITIAL COMMENTS - FREE TEXT/NARRATIVE: Patient presents to ER with progressive shortness of breath for the psat 3 days , much worse since about 2:00 A.M. this morning. He admits to cough with green sputum production. Denies edema or chest pain. Has history of COPD, chronic respiratory failure, home oxygen dependent at 4 liters, CHF, CAD and lung cancer. 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 Treatments, Oxygen - Related Data Allergies Allergy/AdvReac Type Severity Reaction Status Date / Time bee venom protein (honey bee) Allergy Facial Verified 08/29/19 14:26 Swelling naproxen [From Naprosyn] Allergy Swelling Verified 08/29/19 14:26 gabapentin AdvReac Cannot Verified 08/29/19 14:26 Remember pregabalin [From Lyrica] AdvReac Excitabilit Verified 08/29/19 14:26 y Home Meds: Home Meds Metoprolol Succinate [Toprol Xl] 50 mg PO DAILY 06/05/14 [History] Omeprazole 20 mg PO BID 06/05/14 [History] Albuterol [Proventil HFA] 2 puff INH Q4H PRN 04/29/15 [History] Aspirin [Ecotrin EC] 81 mg PO DAILY 12/14/17 [History] Umeclidinium Mertzon [Incruse Ellipta*] 1 puff IN DAILY 05/04/19 [History] Albuterol/Ipratropium [DuoNeb 3.0-0.5 MG/3 ML] 3 ml INH QID 05/20/19 [History] Apixaban [Eliquis] 2.5 mg PO BID 05/20/19 [History] Budesonide [Pulmicort] 0.5 mg IH BID 05/20/19 [History] Fexofenadine HCl [Bronwyn Allergy] 60 mg PO DAILY 05/22/19 [History] Darbepoetin Chuy [Aranesp] 300 mcg SQ Q7D PRN 05/25/19 [History] Ascorbic Acid [Vitamin C with Anum Hips] 500 mg PO DAILY 06/02/19 [History] Furosemide [Lasix] 40 mg PO DAILY 06/02/19 [History] Lidocaine 5% [Lidoderm 5%] 700 mg TOP Q24H MDD 12 hours on, 12 hours off [History] rOPINIRole [Requip] 4 mg PO Q4HR PRN 06/02/19 [History] Acetaminophen 325 mg PO Q4H PRN 06/20/19 [History] Acetaminophen [Tylenol Extra Strength] 500 mg PO Q8H PRN 08/29/19 [History] Levofloxacin [Levaquin] 500 mg PO DAILY 08/29/19 [History] predniSONE 20 mg PO DAILY 08/29/19 [History] Past Medical History HEENT History: Reports: Impaired Vision, Other (See Below) Other HEENT History: reading glasses Cardiovascular History: Reports: Afib, CAD, Heart Failure, Hypertension, DC Respiratory History: Reports: COPD, Intubation, Previous, Pneumonia, Recurrent, Pneumothorax, SOB Gastrointestinal History: Reports: None, Chronic Constipation, Jaundice Genitourinary History: Reports: None Musculoskeletal History: Reports: Arthritis, Back Pain, Chronic, Fracture Other Musculoskeletal History: fractured ribs, compression fractures(lumbar) Neurological History: Reports: CVA, Other (See Below) Other Neuro History: restless legs Psychiatric History: Reports: None Endocrine/Metabolic History: Reports: None Hematologic History: Reports: Anemia Other Hematologic History: myelodysplastic syndrome Immunologic History: Reports: None Oncologic (Cancer) History: Reports: Lung Other Oncologic History: skin Dermatologic History: Reports: Other (See Below) Other Dermatologic History: 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 - Infectious Disease History Infectious Disease History: Reports: None Other Infectious Disease History: pt cannot remember - Past Surgical History Cardiovascular Surgical History: Reports: Aneurysm, Carotid Stents, Other (See Below) GI Surgical History: Reports: Appendectomy, Other (See Below) Social & Family History - Family History Family Medical History: Noncontributory - Caffeine Use Caffeine Use: Reports: Coffee - Living Situation & Occupation Living situation: Reports: , with Spouse Occupation: Retired ED ROS GENERAL - Review of Systems Review Of Systems: Comprehensive ROS is negative, except as noted in HPI. ED EXAM, GENERAL - Physical Exam Exam: See Below Exam Limited By: No Limitations General Appearance: Alert, Anxious, Thin, Other (Chronically ill appearing) Eye Exam: Bilateral Eye: Normal Inspection Nose: Normal Inspection, Normal Mucosa, No Blood Throat/Mouth: Normal Inspection, Normal Lips, Normal Voice, No Airway Compromise Head: Atraumatic, Normocephalic Neck: Normal Inspection, Non-Tender, Full Range of Motion Respiratory/Chest: No Respiratory Distress, No Accessory Muscle Use, Decreased Breath Sounds, Crackles, Rhonchi (Left mid-chest), Wheezing Cardiovascular: Regular Rate, Rhythm, No Edema, No JVD, Extra Beats GI/Abdominal: Normal Bowel Sounds, Soft, Non-Tender. No: Guarding, Rigid, Rebound Back Exam: Normal Inspection Extremities: Normal Inspection Neurological: Alert, Oriented, No Motor/Sensory Deficits Psychiatric: Normal Mood Skin Exam: Warm, Dry, Intact, Normal Color, No Rash EKG INTERPRETATION EKG Date: 09/17/19 Time: 12:46 Rhythm: Other (sinus rhythm with PVC.) Rate (Beats/Min): 93 [place]: Normal P-Wave: Present QRS: Other (probable left atrial abnormality, inferior infarct, age indeterminate, consider anterior infarct, and lateral leads are also involved.) ST-T: Normal QT: Normal Comparison: No Change Course - Orders/Labs/Meds Orders: Active Orders 24 hr Category Date Time Status EKG 12 Lead [EKG Documentation Completion] [RC] STAT Care 09/17/19 11:58 Active Peripheral IV Care [RC] . DIRECTED Care 09/17/19 11:58 Active RT Aerosol Therapy [RC] ASDIRECTED Care 09/17/19 11:57 Active Chest 1V Frontal [CR] Stat Exams 09/17/19 11:58 Taken CULTURE BLOOD [BC] Stat Lab 09/17/19 12:08 Results CULTURE BLOOD [BC] Stat Lab 09/17/19 12:10 Received Levofloxacin/Dextrose 5%-Water [Levaquin in D5W 500 MG/ Med 09/17/19 12:54 Active 100 ML] 500 mg Premix Bag 1 bag IV ONETIME Sodium Chloride 0.9% [Saline Flush] Med 09/17/19 11:58 Active 10 ml FLUSH ASDIRECTED PRN Blood Culture x2 Reflex Set [OM.PC] Stat Oth 09/17/19 11:58 Ordered Peripheral IV Insertion Adult [OM.PC] Stat Oth 09/17/19 11:58 Ordered Medication Orders Levofloxacin/Dextrose 500 mg/ (Premix) 100 mls @ 100 mls/hr IV ONETIME ONE Stop: 09/17/19 13:53 Sodium Chloride (Saline Flush) 10 ml FLUSH ASDIRECTED PRN PRN Reason: Keep Vein Open Last Admin: 09/17/19 12:21 Dose: 10 ml Labs: Laboratory Tests 09/17/19 09/17/19 09/17/19 Range/Units 12:10 12:10 12:10 WBC 14.4 H (5.0-10.0) 10^3/uL RBC 2.82 L (4.6-6.2) 10^6/uL Hgb 9.2 L (14.0-18.0) g/dL Hct 28.8 L (40.0-54.0) % MCV 102.1 H D (80-100) fL MCH 32.6 (27.0-34.0) pg MCHC 31.9 L (33.0-35.0) g/dL Plt Count 206 (150-450) 10^3/uL Lymph % (Auto) 9.1 L (20.5-50.1) % [place] % (Auto) 16.7 H (2-8) % Eos % (Auto) 0.7 L (1.0-3.0) % Add Manual Diff Yes Neutrophils % (Manual) 67 (42-75) % Band Neutrophils % 8 % Lymphocytes % (Manual) 10 L (20-50) % Monocytes % (Manual) 14 H (2-8) % Eosinophils % (Manual) 1 (1-3) % Hypochromasia 2+ moderate Stomatocytes 1+ slight ABG pH 7.44 (7.35-7.45) ABG pCO2 41 (35-45) mmHg ABG pO2 69 L (70-100) mmHg ABG HCO3 27.1 H (22-26) mmol/L ABG O2 Saturation 93 L (95-100) % ABG Base Excess 3 ((-2)-(+3)) mmol/L [place] Test Positive O2 Delivery Device Nasal cannula Oxygen Flow Rate 2 Sodium 132 L (135-145) mmol/L Potassium 4.3 (3.6-5.0) mmol/L Chloride 93 L (101-111) mmol/L Carbon Dioxide 27.0 (21.0-31.0) mmol/L Anion Gap 16.3 BUN 48 H (7-18) mg/dL Creatinine 1.3 (0.6-1.3) mg/dL Est Cr Clr Drug Dosing 42.22 mL/min Estimated GFR (MDRD) 54 BUN/Creatinine Ratio 36.92 Glucose 180 H (74-105) mg/dL Lactic Acid (0.5-2.0) mmol/L Calcium 8.2 L (8.4-10.2) mg/dl Total Bilirubin 2.3 H (0.2-1.0) mg/dL AST 29 (10-42) IU/L ALT 33 (10-60) IU/L Alkaline Phosphatase 87 (42-121) IU/L Troponin I 0.06 H* (0.00-0.02) ng/ml B-Natriuretic Peptide 271 H (0-100) pg/ml Total Protein 7.6 (6.7-8.2) g/dl Albumin 3.8 (3.2-5.5) g/dl Globulin 3.8 Albumin/Globulin Ratio 1.00 // Range/Units 12:10 WBC (5.0-10.0) 10^3/uL RBC (4.6-6.2) 10^6/uL Hgb (14.0-18.0) g/dL Hct (40.0-54.0) % MCV (80-100) fL MCH (27.0-34.0) pg MCHC (33.0-35.0) g/dL Plt Count (150-450) 10^3/uL Lymph % (Auto) (20.5-50.1) % [place] % (Auto) (2-8) % Eos % (Auto) (1.0-3.0) % Add Manual Diff Neutrophils % (Manual) (42-75) % Band Neutrophils % % Lymphocytes % (Manual) (20-50) % Monocytes % (Manual) (2-8) % Eosinophils % (Manual) (1-3) % Hypochromasia Stomatocytes ABG pH (7.35-7.45) ABG pCO2 (35-45) mmHg ABG pO2 (70-100) mmHg ABG HCO3 (22-26) mmol/L ABG O2 Saturation (95-100) % ABG Base Excess ((-2)-(+3)) mmol/L [place] Test O2 Delivery Device Oxygen Flow Rate Sodium (135-145) mmol/L Potassium (3.6-5.0) mmol/L Chloride (101-111) mmol/L Carbon Dioxide (21.0-31.0) mmol/L Anion Gap BUN (7-18) mg/dL Creatinine (0.6-1.3) mg/dL Est Cr Clr Drug Dosing mL/min Estimated GFR (MDRD) BUN/Creatinine Ratio Glucose (74-105) mg/dL Lactic Acid 2.3 H* (0.5-2.0) mmol/L Calcium (8.4-10.2) mg/dl Total Bilirubin (0.2-1.0) mg/dL AST (10-42) IU/L ALT (10-60) IU/L Alkaline Phosphatase (42-121) IU/L Troponin I (0.00-0.02) ng/ml B-Natriuretic Peptide (0-100) pg/ml Total Protein (6.7-8.2) g/dl Albumin (3.2-5.5) g/dl Globulin Albumin/Globulin Ratio Meds: Medications Generic Name Dose Route Start Last Admin Trade Name Freq PRN Reason Stop Dose Admin Levofloxacin/Dextrose 500 mg/ 100 mls @ 100 mls/hr 09/17/19 12:54 Premix IV 09/17/19 13:53 ONETIME ONE Sodium Chloride 10 ml 09/17/19 11:58 09/17/19 12:21 Saline Flush FLUSH 10 ml ASDIRECTED PRN Administration Keep Vein Open Discontinued Medications Generic Name Dose Route Start Last Admin Trade Name Freq PRN Reason Stop Dose Admin Hydrocodone Bitart/Acetaminophen 1 tab 09/17/19 12:55 [place] 325-10 Mg PO 09/17/19 12:56 ONETIME ONE Albuterol/Ipratropium 3 ml 09/17/19 11:57 09/17/19 12:20 Duoneb 3.0-0.5 Mg/3 Ml NEB 09/17/19 11:58 3 ml ONETIME ONE Administration Furosemide 40 mg 09/17/19 12:31 Lasix IVPUSH 09/17/19 12:32 NOW ONE Methylprednisolone Sodium Succinate 125 mg 09/17/19 11:57 09/17/19 12:20 Solu-Medrol IVPUSH 09/17/19 11:58 125 mg ONETIME ONE Administration - Radiology Interpretation Free Text/Narrative:: [facility] - [facility] Final Radiology Report Call: [phone] assistance Online chat: [email or web address] Name: DIANE LOYA Age: 73Years M Date: 09/17/2019 SSN: -- : [id number] Study: XR CHEST 1 VIEW FRONTAL Requesting Physician: OLIVER GOFF Images: 1 Addl Studies: Provided Clinical History: Contrast: Contrast Medium: Contrast Amount: Contrast Method: Page 1 of 2 PROCEDURE INFORMATION: Exam: XR Chest, 1 View Exam date and time: 09/17/2019 12:10 PM Age: 73 years old Clinical indication: Chest pain TECHNIQUE: Imaging protocol: XR of the chest Views: 1 view. COMPARISON: CR Chest 1V Frontal 09/02/2019 9:58 AM (report not provided) FINDINGS: Lungs: The right lung is again smaller than the left. There is again coarsening of the interstitium bilaterally, left more than right. New patchy airspace opacity is present in the left suprahilar region. There is again atelectasis and/or consolidation at the right more than left bases. Pleural space: The costophrenic angles are sharp. No pneumothorax is identified , with some skin folds on the right. Heart/Mediastinum: The cardiomediastinal silhouette is stable in appearance allowing for differences in positioning. Bones/joints: Degenerative changes again involve the spine and shoulders. IMPRESSION: Patchy airspace opacity in the left suprahilar region, new since 09/02/19. Similar other findings including chronic appearing coarsening of the interstitium and atelectasis and/ or consolidation at the right more than left bases. Thank you for allowing us to participate in the care of your patient. DIANE LOYA | Final Radiology Report CONFIDENTIALITY STATEMENT Dictated and Authenticated by: Yousif Kenny MD 09/17/2019 12:55 PM Central Time ([place] & [place]) - Re-Assessments/Exams Free Text/Narrative Re-Assessment/Exam: 09/17/19 13:02 Attempted to transfer pt to [facility] but no ICU bed available. [facility] anticipates a bed to become available at 1600HRS today. Pt will be admitted here to Obs. to Dr. Andersen with plan to transfer the pt to [facility] once a bed opens if the pt still requires transfer. Departure - Departure Time of Disposition: 13:03 (admitted to Dr. Andersen) Disposition: Refer to Observation Condition: Poor Clinical Impression: Acute exacerbation of chronic obstructive pulmonary disease (COPD), History of CHF (congestive heart failure), History of lung cancer Pneumonia Qualifiers: Pneumonia type: due to unspecified organism Laterality: left Lung location: lower lobe of lung Qualified Code(s): J18.9 - Pneumonia, unspecified organism Chronic respiratory failure Qualifiers: Respiratory failure complication: hypoxia Qualified Code(s): J96.11 - Chronic respiratory failure with hypoxia - Discharge Information *PRESCRIPTION DRUG MONITORING PROGRAM REVIEWED*: Not Applicable *COPY OF PRESCRIPTION DRUG MONITORING REPORT IN PATIENT JIL: Not Applicable Forms: ED Department Discharge Sepsis Event Note - Focused Exam Date Exam was Performed: 09/17/19 Time Exam was Performed: 13:07 - My Orders Last 24 Hours: My Active Orders 09/17/19 11:57 RT Aerosol Therapy [RC] ASDIRECTED 09/17/19 11:58 EKG 12 Lead [EKG Documentation Completion] [RC] STAT Peripheral IV Care [RC] . DIRECTED Chest 1V Frontal [CR] Stat Sodium Chloride 0.9% [Saline Flush] 10 ml FLUSH ASDIRECTED PRN Blood Culture x2 Reflex Set [OM.PC] Stat Peripheral IV Insertion Adult [OM.PC] Stat 09/17/19 12:08 CULTURE BLOOD [BC] Stat 09/17/19 12:10 CULTURE BLOOD [BC] Stat 09/17/19 12:54 Levofloxacin/Dextrose 5%-Water [Levaquin in D5W 500 MG/100 ML] 500 mg Premix Bag 1 bag IV ONETIME - Assessment/Plan Last 24 Hours: My Active Orders 09/17/19 11:57 RT Aerosol Therapy [RC] ASDIRECTED 09/17/19 11:58 EKG 12 Lead [EKG Documentation Completion] [RC] STAT Peripheral IV Care [RC] . DIRECTED Chest 1V Frontal [CR] Stat Sodium Chloride 0.9% [Saline Flush] 10 ml FLUSH ASDIRECTED PRN Blood Culture x2 Reflex Set [OM.PC] Stat Peripheral IV Insertion Adult [OM.PC] Stat 09/17/19 12:08 CULTURE BLOOD [BC] Stat 09/17/19 12:10 CULTURE BLOOD [BC] Stat 09/17/19 12:54 Levofloxacin/Dextrose 5%-Water [Levaquin in D5W 500 MG/100 ML] 500 mg Premix Bag 1 bag IV ONETIME I have read and agree with the documentation that has been completed regarding this visit. By signing this record, I attest that the documentation was completed in my physical presence and is an accurate record of the encounter."
[2019-09-17] MEDS ORDERED: Ondansetron 4 MG Tab.DIS PO PRN (13:45)
[2019-09-17] MEDS ORDERED: Docusate Sodium 100 MG Cap PO PRN (13:45)
[2019-09-17] MEDS ORDERED: Acetaminophen 500 MG Tab PO PRN (13:53)
[2019-09-17] MEDS ORDERED: Albuterol 6.7 GM Inhaler INH PRN (13:53)
[2019-09-17] MEDS ORDERED: rOPINIRole 2 MG Tab PO PRN (13:53)
--- NOTE | 2019-09-17 13:57 | PCM.HP ---
H&P History of Present Illness - General Date of Service: 09/17/19 Admit Problem/Dx: Admission Diagnosis/Problem Admission Diagnosis/Problem CHF, Congestive heart failure Source of Information: Patient History Limitations: Reports: No Limitations - History of Present Illness Initial Comments - Free Text/Narative: King Montanez is a 73 y.o male with a medical history of hypertension, hyperlipidemia, coronary artery disease status post stents placed in the past, history of cerebrovascular accident requiring left carotid endarterectomy in the past, myelodysplastic syndrome with chronic anemia, chronic pain syndrome, chronic tobacco use, chronic obstructive pulmonary disease and NSCLC s/p VATS RLL and RML lobectomies, who presented with cough and shortness of breath. Patient has been having progressively worsening shortness of breath and cough for the past 2-3 days. Cough is productive of sputum that is occasionally greenish. He says he gained 4 lbs since yesterday. This morning he was very short of breath and decided to come to the ED. On arrival to ED, patient's sats was 86% and his O2 need increased from 4L of O2 at baseline to 6L. Labs revealed troponin 0.06 (0.02 ULN), Cr 1.3, wbc 14.4, LA 2.3. BNP was 271. CXR showed bilateral opacities, small to moderate right pleural effusion, and prominent pulmonary vasculature (my interpretation). Patient was started on Levaquin and got a dose of lasix 40mg IV Back Pain Score (Numeric/FACES): 9 - Related Data Allergies/Adverse Reactions: Allergies Allergy/AdvReac Type Severity Reaction Status Date / Time bee venom protein (honey bee) Allergy Facial Verified 09/17/19 14:13 Swelling naproxen [From Naprosyn] Allergy Swelling Verified 09/17/19 14:13 gabapentin AdvReac Cannot Verified 09/17/19 14:13 Remember pregabalin [From Lyrica] AdvReac Excitabilit Verified 09/17/19 14:13 y Home Medications: Home Meds Omeprazole 20 mg PO BID 06/05/14 [History] Albuterol [Proventil HFA] 2 puff INH Q4H PRN 04/29/15 [History] Aspirin [Ecotrin EC] 81 mg PO DAILY 12/14/17 [History] Umeclidinium Sherman [Incruse Ellipta*] 1 puff IN DAILY 05/04/19 [History] Albuterol/Ipratropium [DuoNeb 3.0-0.5 MG/3 ML] 3 ml INH QID 05/20/19 [History] Budesonide [Pulmicort] 0.5 mg IH BID 05/20/19 [History] Fexofenadine HCl [[place] Allergy] 60 mg PO DAILY 05/22/19 [History] Darbepoetin Chuy [Aranesp] 300 mcg SQ Q7D PRN 05/25/19 [History] Ascorbic Acid [Vitamin C with Anum Hips] 500 mg PO DAILY 06/02/19 [History] Furosemide [Lasix] 40 mg PO BID 06/02/19 [History] Lidocaine 5% [Lidoderm 5%] 700 mg TOP Q24H MDD 12 hours on, 12 hours off [History] rOPINIRole [Requip] 4 mg PO Q4HR 06/02/19 [History] Acetaminophen 325 mg PO Q4H PRN 06/20/19 [History] Acetaminophen [Tylenol Extra Strength] 500 mg PO Q8H PRN 08/29/19 [History] predniSONE 20 mg PO DAILY 08/29/19 [History] Apixaban [Eliquis] 2.5 mg PO BID 09/17/19 [History] Carvedilol [Coreg] 3.125 mg PO BID 09/17/19 [History] Lisinopril [Zestril] 2.5 mg PO DAILY 09/17/19 [History] Melatonin 3 mg PO BEDTIME PRN 09/17/19 [History] Spironolactone [Aldactone] 25 mg PO DAILY 09/17/19 [History] traZODone HCl [Trazodone HCl] 50 mg PO BEDTIME 09/17/19 [History] Past Medical History HEENT History: Reports: Impaired Vision, Other (See Below) Other HEENT History: reading glasses Cardiovascular History: Reports: Afib, CAD, Heart Failure, Hypertension, [place] Respiratory History: Reports: COPD, Intubation, Previous, Pneumonia, Recurrent, Pneumothorax, SOB Gastrointestinal History: Reports: None, Chronic Constipation, Jaundice Genitourinary History: Reports: None Musculoskeletal History: Reports: Arthritis, Back Pain, Chronic, Fracture Other Musculoskeletal History: fractured ribs, compression fractures(lumbar) Neurological History: Reports: CVA, Other (See Below) Other Neuro History: restless legs Psychiatric History: Reports: None Endocrine/Metabolic History: Reports: None Hematologic History: Reports: Anemia Other Hematologic History: myelodysplastic syndrome Immunologic History: Reports: None Oncologic (Cancer) History: Reports: Lung Other Oncologic History: skin Dermatologic History: Reports: Other (See Below) Other Dermatologic History: 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 - Infectious Disease History Infectious Disease History: Reports: None Other Infectious Disease History: pt cannot remember - Past Surgical History Head Surgeries/Procedures: Reports: None Cardiovascular Surgical History: Reports: Aneurysm, Carotid Stents, Other (See Below) GI Surgical History: Reports: Appendectomy, Other (See Below) Social & Family History - Family History Family Medical History: Noncontributory - Tobacco Use Smoking Status *Q: Former Smoker Used Tobacco, but Quit: Yes Month/Year Tobacco Last Used: February 2019 - Caffeine Use Caffeine Use: Reports: Coffee - Recreational Drug Use Recreational Drug Use: No - Living Situation & Occupation Living situation: Reports: , with Spouse Occupation: Retired H&P Review of Systems - Review of Systems: Review Of Systems: See Below General: Reports: Weakness, Weight Gain HEENT: Reports: No Symptoms Pulmonary: Reports: Shortness of Breath, Wheezing, Cough, Sputum Cardiovascular: Reports: No Symptoms Gastrointestinal: Reports: No Symptoms Genitourinary: Reports: No Symptoms Musculoskeletal: Reports: No Symptoms Skin: Reports: No Symptoms Psychiatric: Reports: No Symptoms Neurological: Reports: No Symptoms Hematologic/Lymphatic: Reports: No Symptoms Immunologic: Reports: No Symptoms Exam - Exam Exam: See Below - Vital Signs Vital Signs: Last Vital Signs Temp 97.6 F 09/17/19 11:45 Pulse 99 09/17/19 11:45 Resp 24 H 09/17/19 11:45 BP 107/36 L 09/17/19 11:45 Pulse Ox 86 L 09/17/19 11:45 Weight: 132 lb - Exam General: Alert, Oriented HEENT: PERRLA, Hearing Intact, Mucosa Moist & [place], Nares Patent, Normal Nasal Septum, Posterior Pharynx Clear, Conjunctiva Clear, EOMI, EACs Clear, TMs Clear Neck: Supple, Trachea Midline, 2 Lungs: Crackles, Wheezing Cardiovascular: Regular Rate, Irregular Rhythm GI/Abdominal Exam: Normal Bowel Sounds, Soft, Non-Tender, No Organomegaly, No Distention, No Abnormal Bruit, No Mass, Pelvis Stable (Male) Exam: Deferred Rectal (Males) Exam: Deferred Extremities: Normal Inspection, Normal Range of Motion, Non-Tender, No Pedal Edema, Normal Capillary Refill Skin: Warm, Dry, Intact Neurological: Cranial Nerves Intact, Reflexes Equal Bilateral Neuro Extensive - Mental Status: Alert, Oriented x3, Normal Mood/Affect, Normal Cognition Neuro Extensive - Motor, Sensory, Reflexes: CN II-XII Intact, Normal Gait, Normal Reflexes Psychiatric: Alert, Normal Affect, Normal Mood - Patient Data Lab Results Last 24 hrs: Laboratory Results - last 24 hr 09/17/19 09/17/19 09/17/19 Range/Units 12:10 12:10 12:10 WBC 14.4 H (5.0-10.0) 10^3/uL RBC 2.82 L (4.6-6.2) 10^6/uL Hgb 9.2 L (14.0-18.0) g/dL Hct 28.8 L (40.0-54.0) % MCV 102.1 H D (80-100) fL MCH 32.6 (27.0-34.0) pg MCHC 31.9 L (33.0-35.0) g/dL Plt Count 206 (150-450) 10^3/uL Lymph % (Auto) 9.1 L (20.5-50.1) % [place] % (Auto) 16.7 H (2-8) % Eos % (Auto) 0.7 L (1.0-3.0) % Add Manual Diff Yes Neutrophils % (Manual) 67 (42-75) % Band Neutrophils % 8 % Lymphocytes % (Manual) 10 L (20-50) % Monocytes % (Manual) 14 H (2-8) % Eosinophils % (Manual) 1 (1-3) % Hypochromasia 2+ moderate Stomatocytes 1+ slight ABG pH 7.44 (7.35-7.45) ABG pCO2 41 (35-45) mmHg ABG pO2 69 L (70-100) mmHg ABG HCO3 27.1 H (22-26) mmol/L ABG O2 Saturation 93 L (95-100) % ABG Base Excess 3 ((-2)-(+3)) mmol/L [place] Test Positive O2 Delivery Device Nasal cannula Oxygen Flow Rate 2 Sodium 132 L (135-145) mmol/L Potassium 4.3 (3.6-5.0) mmol/L Chloride 93 L (101-111) mmol/L Carbon Dioxide 27.0 (21.0-31.0) mmol/L Anion Gap 16.3 BUN 48 H (7-18) mg/dL Creatinine 1.3 (0.6-1.3) mg/dL Est Cr Clr Drug Dosing 42.22 mL/min Estimated GFR (MDRD) 54 BUN/Creatinine Ratio 36.92 Glucose 180 H (74-105) mg/dL Lactic Acid (0.5-2.0) mmol/L Calcium 8.2 L (8.4-10.2) mg/dl Total Bilirubin 2.3 H (0.2-1.0) mg/dL AST 29 (10-42) IU/L ALT 33 (10-60) IU/L Alkaline Phosphatase 87 (42-121) IU/L Troponin I 0.06 H* (0.00-0.02) ng/ml B-Natriuretic Peptide 271 H (0-100) pg/ml Total Protein 7.6 (6.7-8.2) g/dl Albumin 3.8 (3.2-5.5) g/dl Globulin 3.8 Albumin/Globulin Ratio 1.00 /09/05 Range/Units 12:10 WBC (5.0-10.0) 10^3/uL RBC (4.6-6.2) 10^6/uL Hgb (14.0-18.0) g/dL Hct (40.0-54.0) % MCV (80-100) fL MCH (27.0-34.0) pg MCHC (33.0-35.0) g/dL Plt Count (150-450) 10^3/uL Lymph % (Auto) (20.5-50.1) % [place] % (Auto) (2-8) % Eos % (Auto) (1.0-3.0) % Add Manual Diff Neutrophils % (Manual) (42-75) % Band Neutrophils % % Lymphocytes % (Manual) (20-50) % Monocytes % (Manual) (2-8) % Eosinophils % (Manual) (1-3) % Hypochromasia Stomatocytes ABG pH (7.35-7.45) ABG pCO2 (35-45) mmHg ABG pO2 (70-100) mmHg ABG HCO3 (22-26) mmol/L ABG O2 Saturation (95-100) % ABG Base Excess ((-2)-(+3)) mmol/L [place] Test O2 Delivery Device Oxygen Flow Rate Sodium (135-145) mmol/L Potassium (3.6-5.0) mmol/L Chloride (101-111) mmol/L Carbon Dioxide (21.0-31.0) mmol/L Anion Gap BUN (7-18) mg/dL Creatinine (0.6-1.3) mg/dL Est Cr Clr Drug Dosing mL/min Estimated GFR (MDRD) BUN/Creatinine Ratio Glucose (74-105) mg/dL Lactic Acid 2.3 H* (0.5-2.0) mmol/L Calcium (8.4-10.2) mg/dl Total Bilirubin (0.2-1.0) mg/dL AST (10-42) IU/L ALT (10-60) IU/L Alkaline Phosphatase (42-121) IU/L Troponin I (0.00-0.02) ng/ml B-Natriuretic Peptide (0-100) pg/ml Total Protein (6.7-8.2) g/dl Albumin (3.2-5.5) g/dl Globulin Albumin/Globulin Ratio Result Diagrams: 09/17/19 12:10 09/17/19 12:10 [place] Results Last 24 hrs: Microbiology 09/17/19 12:08 Anaerobic Blood Culture - Final Blood - Venous - Lab Draw Problem List Initiated/Reviewed/Updated: Yes Orders Last 24hrs: Active Orders 24 hr Category Date Time Status Admission Diagnosis [ADT] Routine ADT 09/17/19 13:16 Ordered Admission Status [Patient Status] [ADT] Routine ADT 09/17/19 13:16 Active Patient Status [ADT] Routine ADT 09/17/19 13:40 Ordered Cardiac Monitoring [RC] CONTINUOUS Care 09/17/19 13:47 Ordered EKG 12 Lead [EKG Documentation Completion] [RC] STAT Care 09/17/19 11:58 Active Intake and Output [RC] QSHIFT Care 09/17/19 13:47 Ordered Oxygen Therapy [RC] PRN Care 09/17/19 13:40 Ordered Peripheral IV Care [RC] . DIRECTED Care 09/17/19 11:58 Active Pulse Oximetry [RC] CONTINUOUS Care 09/17/19 13:47 Ordered RT Aerosol Therapy [RC] ASDIRECTED Care 09/17/19 11:57 Active Up ad Purvi [RC] ASDIRECTED Care 09/17/19 13:45 Ordered VTE/DVT Education [RC] PER UNIT ROUTINE Care 09/17/19 13:40 Ordered Vital Signs [RC] Q4H Care 09/17/19 13:40 Ordered 2 Gram Sodium Diet [DIET] Diet 09/17/19 Dinner Ordered Chest 1V Frontal [CR] Stat Exams 09/17/19 11:58 Taken CULTURE BLOOD [BC] Stat Lab 09/17/19 12:08 Results CULTURE BLOOD [BC] Stat Lab 09/17/19 12:10 Received Acetaminophen [Tylenol Extra Strength] Med 09/17/19 13:53 Ordered 500 mg PO Q8H PRN Albuterol [Proventil HFA] Med 09/17/19 13:53 Ordered 2 puff INH Q4H PRN Albuterol/Ipratropium [DuoNeb 3.0-0.5 MG/3 ML] Med 09/17/19 17:00 Ordered 3 ml INH QID Apixaban [Eliquis] Med 09/17/19 21:00 Ordered 2.5 mg PO BID Ascorbic Acid [Vitamin C] Med 09/18/19 09:00 Ordered 500 mg PO DAILY Aspirin [Halfprin] Med 09/18/19 09:00 Ordered 81 mg PO DAILY Budesonide [Pulmicort] Med 09/17/19 21:00 Ordered 0.5 mg INH BID Docusate Sodium [Colace] Med 09/17/19 13:45 Ordered 100 mg PO BID PRN Fexofenadine Med 09/18/19 09:00 Ordered 60 mg PO DAILY Lidocaine 5% [Lidoderm 5%] Med 09/17/19 14:00 Ordered 700 mg TOP Q24H Omeprazole Med 09/17/19 21:00 Ordered 20 mg PO BID Ondansetron [Zofran ODT] Med 09/17/19 13:45 Ordered 4 mg PO Q4H PRN Sodium Chloride 0.9% [Saline Flush] Med 09/17/19 11:58 Active 10 ml FLUSH ASDIRECTED PRN Umeclidinium Sherman [Incruse Ellipta*] Med 09/18/19 09:00 Ordered 1 puff IN DAILY levoFLOXacin [Levaquin] Med 09/18/19 09:00 Ordered 500 mg PO DAILY predniSONE Med 09/18/19 09:00 Ordered 20 mg PO DAILY rOPINIRole [Requip] Med 09/17/19 13:53 Ordered 4 mg PO Q4HR PRN Blood Culture x2 Reflex Set [OM.PC] Stat Ot 09/17/19 11:58 Ordered Peripheral IV Insertion Adult [OM.PC] Stat Oth 09/17/19 11:58 Ordered Resuscitation Status Routine Resus Stat 09/17/19 13:40 Ordered Medication Orders Acetaminophen (Tylenol Extra Strength) 500 mg PO Q8H PRN PRN Reason: Pain/Fever Albuterol (Proventil Hfa) gm INH Q4H PRN PRN Reason: Shortness of Breath Albuterol/Ipratropium (Duoneb 3.0-0.5 Mg/3 Ml) 3 ml INH QID [facility] Ascorbic Acid (Vitamin C) 500 mg PO DAILY [facility] Aspirin (Halfprin) 81 mg PO DAILY [facility] Budesonide (Pulmicort) 0.5 mg INH BID [facility] Docusate Sodium (Colace) 100 mg PO BID PRN PRN Reason: Constipation Levofloxacin (Levaquin) 500 mg PO DAILY [facility] Lidocaine (Lidoderm 5%) 700 mg TOP Q24H [facility] Non-Formulary Medication (Apixaban [Eliquis]) 2.5 mg PO BID [facility] Non-Formulary Medication (Fexofenadine) 60 mg PO DAILY [facility] Non-Formulary Medication (Umeclidinium Sherman [Incruse Ellipta*]) 1 puff IN DAILY [facility] Omeprazole (Omeprazole) 20 mg PO BID [facility] Ondansetron HCl (Zofran Odt) 4 mg PO Q4H PRN PRN Reason: nausea, able to take PO Prednisone (Prednisone) 20 mg PO DAILY [facility] Ropinirole HCl (Requip) 4 mg PO Q4HR PRN PRN Reason: RLS PAIN Sodium Chloride (Saline Flush) 10 ml FLUSH ASDIRECTED PRN PRN Reason: Keep Vein Open Last Admin: 09/17/19 12:21 Dose: 10 ml Assessment/Plan Comment:: Acute hypoxic hypercarbic respiratory failure Bilateral pneumonia COD exacerbation Bilateral pleural effusion Probable acute systolic CHF exacerbation Patient presented with shortness of breath, cough with production of sputum and hypoxia requiring increased O2 needs. Labs with leukocytosis of 14.4, LA 2.3, BNP 271 and CXR with bilateral opacities, small to moderate right pleural effusion, and prominent pulmonary vasculature (my interpretation). Suspect pneumonia resulting in COPD exacerbation as most likely process. - Start ceftriaxone and azithromycin - Duonebs QID - Albuterol PRN - Prednisone 40 mg daily - Diurese based on regular assessment - Strict I/O - Daily weights - Resume other home nebs and inhalers Elevated troponin Troponin of 0.06 (0.02 ULN). No chesty pain or pressure, and EKG without acute ST changes. Likely type 2 ischemia. - Trend to normal NICOLAS Creatinine of 1.3. Likely cardiorenal. - Repeat BMP daily with diuresis Hypertension -Hold antihypertensives for now given low normal BP Hyperlipidemia - Resume home statin Coronary artery disease status post stents - Resume home ASA Afib -Rate controlled - Resume home apixaban Myelodysplastic syndrome Chronic anemia Hb 9.2 is at baseline.
[2019-09-17] MEDS ORDERED: Lidocaine 5% 700 MG Patch TOP SCH (14:00)
[2019-09-17] MEDS ORDERED: Azithromycin 500 MG in Sodium Chloride 0.9% 250 ML IV SCH (15:00)
[2019-09-17] MEDS ORDERED: cefTRIAXone 1 GM in Sodium Chloride 0.9% 50 ML IV SCH (16:00)
[2019-09-17] MEDS ORDERED: Albuterol/Ipratropium 3.0-0.5 MG/3 ML Neb Soln INH SCH (17:00)
--- NOTE | 2019-09-17 17:09 | PCM.DCSUM1 ---
Discharge Summary - Hospital Course Free Text/Narrative:: King Montanez is a 73 y.o male with a medical history of hypertension, hyperlipidemia, coronary artery disease status post stents placed in the past, history of cerebrovascular accident requiring left carotid endarterectomy in the past, myelodysplastic syndrome with chronic anemia, chronic pain syndrome, chronic tobacco use, chronic obstructive pulmonary disease on 4L at baseline, chronic pancreatitis, biliary obstruction s/p stent, and NSCLC s/p VATS RLL and RML lobectomies, who presented with progressively worsening productive cough and shortness of breath; reported 4 lbs weight. Patient's sats was 86% and his O2 need increased from 4L of O2 at baseline to 6L. Labs revealed troponin 0.06 ( 0.02 ULN), Cr 1.3, wbc 14.4, LA 2.3. BNP was 271. CXR revealed new patchy airspace opacity in the left suprahilar region; coarsening of his interstitium bilaterally, L>R, and atelectasis and /or consolidation at the right more than left bases. Patient was received on Levaquin and got a dose of Lasix 40mg IV. He was also given duonebs, Solumedrol and then started on Ceftriaxone and Azithromycin. Patient was transferred to [facility] in [place], [place] due to his tenuous respiratory status and several co-morbidities. Discharge diagnoses Acute hypoxic hypercarbic respiratory failure Bilateral pneumonia Probable COPD exacerbation Probable acute systolic CHF exacerbation Elevated troponin NICOLAS Hypertension Biliary stents Hyperlipidemia Coronary artery disease status post stents Afib Myelodysplastic syndrome Chronic anemia - Discharge Data Discharge Date: 09/17/19 Discharge Disposition: DC/Tfer to Acute Hospital 02 Condition: Fair - Referral to Home Health Primary Care Physician: PCP None - Discharge Plan *PRESCRIPTION DRUG MONITORING PROGRAM REVIEWED*: Not Applicable *COPY OF PRESCRIPTION DRUG MONITORING REPORT IN PATIENT JIL: Not Applicable Home Medications: Home Meds Omeprazole 20 mg PO BID 06/05/14 [History] Albuterol [Proventil HFA] 2 puff INH Q4H PRN 04/29/15 [History] Aspirin [Ecotrin EC] 81 mg PO DAILY 12/14/17 [History] Umeclidinium [place] [Incruse Ellipta*] 1 puff IN DAILY 05/04/19 [History] Albuterol/Ipratropium [DuoNeb 3.0-0.5 MG/3 ML] 3 ml INH QID 05/20/19 [History] Budesonide [Pulmicort] 0.5 mg IH BID 05/20/19 [History] Fexofenadine HCl [[place] Allergy] 60 mg PO DAILY 05/22/19 [History] Darbepoetin [place] [Aranesp] 300 mcg SQ Q7D PRN 05/25/19 [History] Ascorbic Acid [Vitamin C with Anmu Hips] 500 mg PO DAILY 06/02/19 [History] Furosemide [Lasix] 40 mg PO BID 06/02/19 [History] Lidocaine 5% [Lidoderm 5%] 700 mg TOP Q24H MDD 12 hours on, 12 hours off [History] rOPINIRole [Requip] 4 mg PO Q4HR 06/02/19 [History] Acetaminophen 325 mg PO Q4H PRN 06/20/19 [History] Acetaminophen [Tylenol Extra Strength] 500 mg PO Q8H PRN 08/29/19 [History] predniSONE 20 mg PO DAILY 08/29/19 [History] Apixaban [Eliquis] 2.5 mg PO BID 09/17/19 [History] Carvedilol [Coreg] 3.125 mg PO BID 09/17/19 [History] Lisinopril [Zestril] 2.5 mg PO DAILY 09/17/19 [History] Melatonin 3 mg PO BEDTIME PRN 09/17/19 [History] Spironolactone [Aldactone] 25 mg PO DAILY 09/17/19 [History] traZODone HCl [Trazodone HCl] 50 mg PO BEDTIME 09/17/19 [History] Oxygen Therapy Mode: Nasal Cannula Oxygen Flow Rate (L/min): 6 Maintain SpO2% greater than: 90 Forms: ED Department Discharge Referrals: PCP,None [Primary Care Provider] - - Discharge Summary/Plan Comment DC Time >30 min.: Yes - General Info Date of Service: 09/17/19 Admission Dx/Problem (Free Text: Admission Diagnosis/Problem Admission Diagnosis/Problem CHF, Congestive heart failure - Review of Systems General: Reports: Weakness HEENT: Reports: No Symptoms Pulmonary: Reports: Shortness of Breath, Cough, Sputum, Wheezing Cardiovascular: Reports: No Symptoms Gastrointestinal: Reports: No Symptoms Genitourinary: Reports: No Symptoms Musculoskeletal: Reports: No Symptoms Skin: Reports: No Symptoms Neurological: Reports: No Symptoms Psychiatric: Reports: No Symptoms - Patient Data Vitals - Most Recent: Last Vital Signs Temp 97.6 F 09/17/19 11:45 Pulse 99 09/17/19 11:45 Resp 24 H 09/17/19 11:45 BP 107/36 L 09/17/19 11:45 Pulse Ox 100 09/17/19 13:47 Weight - Most Recent: 132 lb I&O - Last 24 hours: Intake & Output 09/17/19 09/17/19 09/17/19 06:59 14:59 22:59 Intake Total 90 Output Total 200 Balance -110 Lab Results - Last 24 hrs: Laboratory Results - last 24 hr 09/17/19 09/17/19 09/17/19 Range/Units 12:10 12:10 12:10 WBC 14.4 H (5.0-10.0) 10^3/uL RBC 2.82 L (4.6-6.2) 10^6/uL Hgb 9.2 L (14.0-18.0) g/dL Hct 28.8 L (40.0-54.0) % MCV 102.1 H D (80-100) fL MCH 32.6 (27.0-34.0) pg MCHC 31.9 L (33.0-35.0) g/dL Plt Count 206 (150-450) 10^3/uL Lymph % (Auto) 9.1 L (20.5-50.1) % Pike % (Auto) 16.7 H (2-8) % Eos % (Auto) 0.7 L (1.0-3.0) % Add Manual Diff Yes Neutrophils % (Manual) 67 (42-75) % Band Neutrophils % 8 % Lymphocytes % (Manual) 10 L (20-50) % Monocytes % (Manual) 14 H (2-8) % Eosinophils % (Manual) 1 (1-3) % Hypochromasia 2+ moderate Stomatocytes 1+ slight ABG pH 7.44 (7.35-7.45) ABG pCO2 41 (35-45) mmHg ABG pO2 69 L (70-100) mmHg ABG HCO3 27.1 H (22-26) mmol/L ABG O2 Saturation 93 L (95-100) % ABG Base Excess 3 ((-2)-(+3)) mmol/L [place] Test Positive O2 Delivery Device Nasal cannula Oxygen Flow Rate 2 Sodium 132 L (135-145) mmol/L Potassium 4.3 (3.6-5.0) mmol/L Chloride 93 L (101-111) mmol/L Carbon Dioxide 27.0 (21.0-31.0) mmol/L Anion Gap 16.3 BUN 48 H (7-18) mg/dL Creatinine 1.3 (0.6-1.3) mg/dL Est Cr Clr Drug Dosing 42.22 mL/min Estimated GFR (MDRD) 54 BUN/Creatinine Ratio 36.92 Glucose 180 H (74-105) mg/dL Lactic Acid (0.5-2.0) mmol/L Calcium 8.2 L (8.4-10.2) mg/dl Total Bilirubin 2.3 H (0.2-1.0) mg/dL AST 29 (10-42) IU/L ALT 33 (10-60) IU/L Alkaline Phosphatase 87 (42-121) IU/L Troponin I 0.06 H* (0.00-0.02) ng/ml B-Natriuretic Peptide 271 H (0-100) pg/ml Total Protein 7.6 (6.7-8.2) g/dl Albumin 3.8 (3.2-5.5) g/dl Globulin 3.8 Albumin/Globulin Ratio 1.00 // Range/Units 12:10 WBC (5.0-10.0) 10^3/uL RBC (4.6-6.2) 10^6/uL Hgb (14.0-18.0) g/dL Hct (40.0-54.0) % MCV (80-100) fL MCH (27.0-34.0) pg MCHC (33.0-35.0) g/dL Plt Count (150-450) 10^3/uL Lymph % (Auto) (20.5-50.1) % Pike % (Auto) (2-8) % Eos % (Auto) (1.0-3.0) % Add Manual Diff Neutrophils % (Manual) (42-75) % Band Neutrophils % % Lymphocytes % (Manual) (20-50) % Monocytes % (Manual) (2-8) % Eosinophils % (Manual) (1-3) % Hypochromasia Stomatocytes ABG pH (7.35-7.45) ABG pCO2 (35-45) mmHg ABG pO2 (70-100) mmHg ABG HCO3 (22-26) mmol/L ABG O2 Saturation (95-100) % ABG Base Excess ((-2)-(+3)) mmol/L [place] Test O2 Delivery Device Oxygen Flow Rate Sodium (135-145) mmol/L Potassium (3.6-5.0) mmol/L Chloride (101-111) mmol/L Carbon Dioxide (21.0-31.0) mmol/L Anion Gap BUN (7-18) mg/dL Creatinine (0.6-1.3) mg/dL Est Cr Clr Drug Dosing mL/min Estimated GFR (MDRD) BUN/Creatinine Ratio Glucose (74-105) mg/dL Lactic Acid 2.3 H* (0.5-2.0) mmol/L Calcium (8.4-10.2) mg/dl Total Bilirubin (0.2-1.0) mg/dL AST (10-42) IU/L ALT (10-60) IU/L Alkaline Phosphatase (42-121) IU/L Troponin I (0.00-0.02) ng/ml B-Natriuretic Peptide (0-100) pg/ml Total Protein (6.7-8.2) g/dl Albumin (3.2-5.5) g/dl Globulin Albumin/Globulin Ratio LAINEY Results - Last 24 hrs: Microbiology 09/17/19 12:08 Anaerobic Blood Culture - Final Blood - Venous - Lab Draw Med Orders - Current: Current Medications Acetaminophen (Tylenol Extra Strength) 500 mg PO Q8H PRN PRN Reason: Pain/Fever Albuterol (Proventil Hfa) gm INH Q4H PRN PRN Reason: Shortness of Breath Albuterol/Ipratropium (Duoneb 3.0-0.5 Mg/3 Ml) 3 ml INH QID JOE Ascorbic Acid (Vitamin C) 500 mg PO DAILY JOE Aspirin (Halfprin) 81 mg PO DAILY JOE Budesonide (Pulmicort) 0.5 mg INH BID JOE Docusate Sodium (Colace) 100 mg PO BID PRN PRN Reason: Constipation Azithromycin 500 mg/ Sodium (Chloride) 250 mls @ 250 mls/hr IV Q24H [facility] Ceftriaxone Sodium 1 gm/ (Sodium Chloride) 50 mls @ 50 mls/hr IV Q24H [facility] Levofloxacin (Levaquin) 500 mg PO DAILY [facility] Lidocaine (Lidoderm 5%) 700 mg TOP Q24H [facility] Methylprednisolone Sodium Succinate (Solu-Medrol) 125 mg IVPUSH Q6H [facility] Non-Formulary Medication (Apixaban [Eliquis]) 2.5 mg PO BID [facility] Non-Formulary Medication (Fexofenadine) 60 mg PO DAILY [facility] Non-Formulary Medication (Umeclidinium [place] [Incruse Ellipta*]) 1 puff IN DAILY [facility] Omeprazole (Omeprazole) 20 mg PO BID [facility] Ondansetron HCl (Zofran Odt) 4 mg PO Q4H PRN PRN Reason: nausea, able to take PO Ropinirole HCl (Requip) 4 mg PO Q4HR PRN PRN Reason: RLS PAIN Sodium Chloride (Saline Flush) 10 ml FLUSH ASDIRECTED PRN PRN Reason: Keep Vein Open Last Admin: 09/17/19 12:21 Dose: 10 ml Discontinued Medications Hydrocodone Bitart/Acetaminophen ([place] 325-10 Mg) 1 tab PO ONETIME ONE Stop: 09/17/19 12:56 Last Admin: 09/17/19 13:09 Dose: Not Given Albuterol/Ipratropium (Duoneb 3.0-0.5 Mg/3 Ml) 3 ml NEB ONETIME ONE Stop: 09/17/19 11:58 Last Admin: 09/17/19 12:20 Dose: 3 ml Furosemide (Lasix) 40 mg IVPUSH NOW ONE Stop: 09/17/19 12:32 Last Admin: 09/17/19 13:08 Dose: 40 mg Levofloxacin/Dextrose 500 mg/ (Premix) 100 mls @ 100 mls/hr IV ONETIME ONE Stop: 09/17/19 13:53 Last Admin: 09/17/19 13:06 Dose: 100 mls/hr Methylprednisolone Sodium Succinate (Solu-Medrol) 125 mg IVPUSH ONETIME ONE Stop: 09/17/19 11:58 Last Admin: 09/17/19 12:20 Dose: 125 mg Prednisone (Prednisone) 20 mg PO DAILY JOE - Exam General: Reports: Alert, Oriented HEENT: Reports: Pupils Equal, Pupils Reactive, EOMI, Mucous Membr. Moist/Jacobus Neck: Reports: Supple Lungs: Reports: Decreased Breath Sounds, Crackles, Wheezing Cardiovascular: Reports: Regular Rate, Regular Rhythm GI/Abdominal Exam: Normal Bowel Sounds, Soft, Non-Tender, No Organomegaly, No Distention, No Abnormal Bruit, No Mass, Pelvis Stable (Male) Exam: Deferred Rectal (Males) Exam: Deferred Back Exam: Reports: Normal Inspection, Full Range of Motion Extremities: Normal Inspection, Normal Range of Motion, Non-Tender, No Pedal Edema, Normal Capillary Refill Skin: Reports: Warm, Dry, Intact Neurological: Reports: No New Focal Deficit Psy/Mental Status: Reports: Alert, Normal Affect, Normal Mood
[2019-09-17] MEDS ORDERED: methylPREDNISolone Sodium Succinate 125 MG/2 ML SDV IVPUSH SCH (18:00)
[2019-09-17 20:16] VITALS: BP 99/52; PULSE 42
[2019-09-17] MEDS ORDERED: Non-Formulary Medication 1 Each (Apixaban [Eliquis] 2.5 MG) PO SCH (21:00)
[2019-09-17] MEDS ORDERED: Omeprazole 20 MG Cap.CR PO SCH (21:00)
[2019-09-17] MEDS ORDERED: Budesonide 0.5 MG/2 ML Neb Susp INH SCH (21:00)
[2019-09-18] MEDS ORDERED: Aspirin 81 MG Tab.EC PO SCH (09:00)
[2019-09-18] MEDS ORDERED: Ascorbic Acid 500 MG Tab PO SCH (09:00)
[2019-09-18] MEDS ORDERED: Non-Formulary Medication 1 Each (Umeclidinium Bromide [Incruse Ellipta*] 1 PUFF) IN SCH (09:00)
[2019-09-18] MEDS ORDERED: FEXOFENADINE 60 MG PO SCH (09:00)
[2019-09-18] MEDS ORDERED: predniSONE 20 MG Tab PO SCH (09:00)
[2019-09-18] MEDS ORDERED: Levofloxacin 500 MG Tab PO SCH (09:00)
== END 2019-09-17 17:05 ==
LOC: DL.ED 11:43 → DL.MS 13:16
PROVIDERS: ADMIT Internal Medicine; ATTEND Internal Medicine
DX: J96.02 Acute respiratory failure with hypercapnia (principal); J96.01 Acute respiratory failure with hypoxia; J18.9 Pneumonia, unspecified organism; J90 Pleural effusion, not elsewhere classified; R79.89 Other specified abnormal findings of blood chemistry; N17.9 Acute kidney failure, unspecified; I48.91 Unspecified atrial fibrillation; D46.9 Myelodysplastic syndrome, unspecified; E78.5 Hyperlipidemia, unspecified; I25.10 Atherosclerotic heart disease of native coronary artery without angina pectoris; I11.0 Hypertensive heart disease with heart failure; I50.9 Heart failure, unspecified; J44.9 Chronic obstructive pulmonary disease, unspecified; M19.90 Unspecified osteoarthritis, unspecified site; Z95.5 Presence of coronary angioplasty implant and graft; Z91.030 Bee allergy status; Z88.8 Allergy status to other drugs, medicaments and biological substances; Z79.899 Other long term (current) drug therapy; Z79.82 Long term (current) use of aspirin; Z79.01 Long term (current) use of anticoagulants; Z79.52 Long term (current) use of systemic steroids; Z79.51 Long term (current) use of inhaled steroids; Z87.891 Personal history of nicotine dependence; Z96.89 Presence of other specified functional implants
CPT/HCPCS: 36415; 36600; 71045; 80053; 82803; 83605; 83880; 84484; 85025; 87040; 93005; J1940; J1956; J2930; 93010; 96365; 96375; 99284; 99285-25; G0378; J7620-GY